=== PATIENT | female | born 1945 | race Caucasian/White ===

== ENCOUNTER 2016-12-10 14:31 | Inpatient (IN) ==
--- OUTSIDE RECORDS SUMMARY | 2016-12-10 14:47 | External Medical Summary | Referral Summary ---
:1945 Author Organization [facility] Address [address] [place] [address] Care Team Providers Name Role Phone Valeria Felipe Primary Care Physician Encounter VC Date(s): 02/28/16 - 02/28/16 [facility] [address] [place] [address] Discharge Disposition: 01-Home or Self Care Attending Physician: Asael Payne MD Admitting Physician: Asael Payne MD Vital Signs Most recent to oldest [Reference Range]: 1 Temperature Oral [35.8-37.3 degC] 36.7 degC (02/28/16 10:49 AM) Temperature Temporal Artery [36.3-37.8 degC] 36.9 degC (02/28/16 1:28 PM) Peripheral Pulse Rate [60-100 bpm] 88 bpm (02/28/16 10:49 AM) Heart Rate Monitored [60-100 bpm] 80 bpm (02/28/16 2:15 PM) Respiratory Rate [14-20 br/min] 18 br/min (02/28/16 2:15 PM) Blood Pressure [90-140/60-90 mmHg] 106/52mmHg (02/28/16 2:15 PM) SpO2 95 % (02/28/16 2:15 PM) Problem List Condition Effective Dates Status Health Status Informant Diabetes(Confirmed) Active patient GERD (gastroesophageal reflux Active patient disease)(Confirmed) Hypertension(Confirmed) Active patient Arthritis(Confirmed) Active patient Allergies, Adverse Reactions, Alerts No Known Allergies Medications Aspirin Low Strength 81 mg, Oral, Daily, 0 Refill(s) Start Date: 02/28/16 Status: OrderedbusPIRone 15 mg oral tablet 15 mg 1 tabs, Oral, BID, 0 Refill(s) Start Date: 02/28/16 Status: OrderedCalcium 600+D See Instructions, Oral, 0 Refill(s) Start Date: 02/28/16 Status: OrderedglyBURIDE 5 mg oral tablet 10 mg 2 tabs, Oral, BID, 0 Refill(s) Start Date: 02/28/16 Status: Orderedlisinopril-hydrochlorothiazide 10 mg-12.5 mg oral tablet 1 tabs, Oral, Daily, 0 Refill(s) Start Date: 02/28/16 Status: OrderedmetFORMIN 500 mg oral tablet, extended release 500 mg 1 tabs, Oral, BID, 0 Refill(s) Start Date: 02/28/16 Status: Orderedomeprazole 20 mg oral delayed release capsule 20 mg 1 caps, Oral, Daily, 0 Refill(s) Start Date: 02/28/16 Status: Orderedoxybutynin 5 mg oral tablet 5 mg 1 tabs, Oral, BID, 0 Refill(s) Start Date: 02/28/16 Status: Orderedsimvastatin 40 mg oral tablet 40 mg 1 tabs, Oral, Bedtime (once a day), 0 Refill(s) Start Date: 02/28/16 Status: Ordered Results Hematology Most recent to oldest [Reference Range]: 1 WBC [4.8-10.8 10*3/uL] 9.6 10*3/uL (02/28/16 11:21 AM) RBC [4.00-5.20] 4.80 (02/28/16 11:21 AM) Hgb [12.0-16.0 gm/dL] 12.0 gm/dL (02/28/16 11:21 AM) Hct [37.0-47.0 %] 38.7 % (02/28/16 11:21 AM) MCV [82.0-99.0 fL] 80.6 fL *LOW* (02/28/16 11:21 AM) MCH [27.0-32.0 pg] 25.0 pg *LOW* (02/28/16 11:21 AM) MCHC [32.0-36.0 gm/dL] 31.0 gm/dL *LOW* (02/28/16 11:21 AM) RDW [11.5-14.5 %] 15.8 % *HI* (02/28/16 11:21 AM) Platelet [150-400 10*3/uL] 246 10*3/uL (02/28/16 11:21 AM) MPV [9.4-12.4 fL] 10.4 fL (02/28/16 11:21 AM) Immature Granulocytes [0.0-1.0 %] 0.5 % (02/28/16 11:21 AM) Neutrophils [51-75 %] 71 % (02/28/16 11:21 AM) Lymphocytes [20-46 %] 21 % (02/28/16 11:21 AM) Monocytes [4-11 %] 6 % (02/28/16 11:21 AM) Eosinophils [0-4 %] 2 % (02/28/16 11:21 AM) Basophils [0-2 %] 0 % (02/28/16 11:21 AM) Neutro Absolute [1.90-7.00 10*3] 6.74 10*3 (02/28/16 11:21 AM) Lymph Absolute [0.80-3.30 10*3] 1.98 10*3 (02/28/16 11:21 AM) [place] Absolute [0.30-1.00 10*3] 0.60 10*3 (02/28/16 11:21 AM) Eos Absolute [0.00-0.50 10*3] 0.16 10*3 (02/28/16 11:21 AM) Baso Absolute [0.00-0.20 10*3] 0.02 10*3 (02/28/16 11:21 AM) Chemistry Most recent to oldest [Reference Range]: 1 Sodium Lvl [136-144 mEq/L] 141 mEq/L (02/28/16 11:21 AM) Potassium Lvl [3.6-5.1 mEq/L] 3.8 mEq/L (02/28/16 11: AM) Chloride [99-109 mEq/L] 102 mEq/L (02/28/16 11:21 AM) CO2 [22-32 mEq/L] 26 mEq/L (02/28/16 11:21 AM) AGAP [3-20] 13 (02/28/16 11:21 AM) BUN [4-20 mg/dL] 18 mg/dL (02/28/16 11:21 AM) Glucose Lvl [70-100 mg/dL] 144 mg/dL *HI* (02/28/16: AM) Creatinine Lvl [0.44-1.03 mg/dL] 0.78 mg/dL (02/28/16:21 AM) eGFR [>60] >601 (02/28/16: AM) Calcium Lvl [8.6-10.0 mg/dL] 9.6 mg/dL (02/28/16 AM) Albumin Lvl [3.5-4.8 gm/dL] 3.9 gm/dL (02/28/16 AM) Total Protein [6.1-7.9 gm/dL] 7.6 gm/dL (02/28/16:21 AM) Globulin [1.9-4.3 gm/dL] 3.7 gm/dL (02/28/16: AM) ALT [14-54 U/L] 17 U/L (02/28/16: AM) AST [15-41 U/L] 19 U/L (02/28/16:21 AM) Alk Phos [26-104 U/L] 40 U/L (02/28/16: AM) Bili Total [0.2-1.2 mg/dL] 0.6 mg/dL2 (02/28/16 11:21 AM) Blood Glucose, Capillary [70-100 mg/dL] 134 mg/dL *HI* (02/28/16 11:23 AM) 1Result Comment: Multiply eGFR results by 1.21 for race.2Result Comment: Naproxen, specifically the metabolite O-desmethylnaproxen, may cause spurious elevation in Total Bilirubin levels. Immunizations Vaccine Date Refusal Reason tetanus-diphth toxoids (Td) adult/adol 07/02/05 Procedures Procedure Date Related Diagnosis Body Site Esophagogastroduodenoscopy Foreign Body Removal1 02/28/16 1auto-populated from documented surgical case Social History Social History Type Response Smoking Status Never smoker Assessment and Plan No data available for this section
--- OUTSIDE RECORDS SUMMARY | 2016-12-10 14:47 | External Medical Summary | Continuity of Care Document ---
:1945 Author Organization [facility] [place] Allergies Active Description Code Type Severity Reaction Onset Reported/ Identified Relationship Clinical to Patient Status Yes No Allergy Drug N/A N/A 11/08/2012 Information Aller Availab gy Medications Problems Date Dx Coded Attending Type Code Diagnosis Diagnosed By 11/08/2012 Jasper Shine Jr, DO Final 250.00 DM2/NOS UNCOMP NSU 11/08/2012 Jasper Shine Jr, DO Final 272.4 HYPERLIPIDEMIA NEC NOS 11/08/2012 Jasper Shine Jr, DO Final 278.00 OBESITY NOS 11/08/2012 Jasper Shine Jr, DO Final 401.9 HYPERTENSION NOS 11/08/2012 Jasper Shine Jr, DO P 787.20 DYSPHAGIA NOS 11/08/2012 Jasper Shine Jr, DO Final 935.1 FB IN ESOPHAGUS 11/08/2012 Jasper Shine Jr, DO External E915 FB ENTERING ORIFICE NEC 11/08/2012 Jasper Shine Jr, DO Final V85.39 BMI 39.0-39.9 ADULT Procedures Code [place] [address] OPERATIVE UPPER GI ENDOSCOPY Jhon Mart DO 11/08/2012 Results Encounters ACCT No. Visit Discharge Status Pt. Type Provider Facility Loc./Unit Complaint Date/Time [id number] 11/08/2012 11/08/2012 DIS Outpatient Rl [facility] 12:21:00 21:15:00 Jasper LEA [facility]
--- NOTE | 2016-12-10 17:13 | Consult Note ---
<Fanny Blackwood V - Last Filed: 12/10/16 17:10> Consult Information - Data of Consult Patient: new to practice Consult date: 12/10/16 Requesting Physician: Maynor Harp MD - Consult Narrative Reason for consult: Medical management of hypertension, diabetes History of present illness: Patient is a pleasant 71-year-old female with a long-standing history of lumbar stenosis, lumbar radiculopathy and lumbar spondylolisthesis thigh cyst. She underwent an L3-L5 posterior lumbar fusion under the care of Dr. Servin on Sunday12/06/16 at [facility]. She has tolerated this procedure well and was accepted to the inpatient rehabilitation continue to at [facility] for ongoing recovery, therapy and strengthening. She is seen today for initial medical consultation. She reports feeling quite fatigued and having a moderate amount of discomfort from her transfer via car this afternoon. She states that once lying down. She is more comfortable. Requesting pain medication at time of examination. Any other symptoms or concerns including chest pain, shortness of breath or GI concerns. Her posterior lumbar incision obtains a dressing that is dry and intact without evidence of erythema or drainage. [facility] Patient Stated Medical History Hypertension Hyperlipidemia Asthma Diabetes Mellitus Type 2 Constipation Urinary Incontinence Osteoarthritis Surgical History: Tonsillectomy. Appendectomy. Cholecystectomy. Hysterectomy Family History: Family history positive for heart disease, hypertension, asthma, arthritis - Social History Smoking status: Never smoker Substance use type: does not use Alcohol intake frequency: does not drink Housing: house Household members: spouse Current residence: Apartment/Private Home Review of Systems All systems: reviewed and no additional remarkable complaints except as stated - Constitutional Constitutional: Present: fatigue - Musculoskeletal Musculoskeletal: Present: as per HPI, back pain (lumbar back pain- post-op) Medications Home Medications Medication Instructions Recorded Confirmed Type Aspirin *EC* [Ecotrin] 1 tab PO DAILY 12/10/16 12/10/16 History Buspirone [Buspar] 15 mg PO BID 12/10/16 12/10/16 History Cyclobenzaprine [Flexeril] 5 mg PO TID PRN 12/10/16 12/10/16 History Docusate Sodium [Colace] 1 cap PO BID 12/10/16 12/10/16 History GlyBURIDE [Micronase] 10 mg PO BID 12/10/16 12/10/16 History Lisinopril/Hctz 10.5 [Prinzide 1 tab PO DAILY 12/10/16 12/10/16 History 1012.5] Metformin [Glucophage] 500 mg PO BIDWM 12/10/16 12/10/16 History Omeprazole [Prilosec] 1 cap PO ACB 12/10/16 12/10/16 History Oxybutynin Ir [Ditropan] 5 mg PO BID 12/10/16 12/10/16 History Oxycodone/APAP 10/325 [Percocet 1 tab PO Q4H PRN 12/10/16 12/10/16 History 10/325] Simvastatin [Zocor] 20 mg PO DAILY 12/10/16 12/10/16 History Allergies Allergy/AdvReac Type Severity Reaction Status Date / Time No Known Allergies Allergy Verified 12/10/16 16:45 Exam Vital Signs: Temperature 98.1 F 12/10/16 14:31 Pulse Rate 108 H 12/10/16 14:31 Respiratory Rate 18 12/10/16 14:31 Blood Pressure 106/57 12/10/16 14:31 Pulse Oximetry 93 12/10/16 14:31 Oxygen Delivery Method Room Air Height: 1.83 m Weight: 106.4 kg Body Mass Index: 31.8 - Constitutional Present: no acute distress, well nourished, well developed - Routine HEENT Exam Head: Present: normocephalic, atraumatic Eye: Present: EOMI ENT: Present: mucous membranes moist, dentition normal - Routine Neck Exam Present: supple, full ROM - Routine Respiratory Exam Present: CTA bilaterally. Absent: wheezes - Routine Cardiovascular Exam Present: RRR, S1, S2. Absent: murmur - Routine Abdominal Exam Present: soft, normoactive bowel sounds, non distended. Absent: tenderness - Routine Extremities Exam Present: no edema, full ROM, normal capillary refill - Routine Back/Spine/Pelvis Exam Back/Spine: Present: paraspinal tenderness (lumbar spine) Back image: 1 - Lumbar spine incision, dressing dry and intact without erythema or drainage - Routine Skin Exam Present: intact, dry, warm - Routine Neurological Exam Present: alert, oriented X3, CN II-XII intact - Routine Psychiatric Exam Present: normal affect, normal thought process Assessment and Plan DVT Prophylaxis: Lovenox Resuscitation Status: Full Code Assessment and Plan: Status post lumbar fusion with postop pain Hypertension Diabetes Hyperlipidemia Osteoarthritis Plan Appreciate medical consultation by the hospitalist services. All rehabilitation and pain control management as per Dr. Harp. Consults to PT and OT for further evaluation of postoperative strengthening and function Will monitor Accu-Cheks routinely and continue on metformin 500 milligrams twice a day and glyburide. Monitor blood pressure and continue on home regimen of Prinzidie Continue with Colace twice a day, will add MiraLAX for more aggressive bowel motivation Lovenox subcutaneous daily for DVT prophylaxis Will check CBC and BMP tomorrow morning to follow. Postoperative blood counts, renal function and electrolytes Appreciate medical consultation for existing comorbidities. The hospitalist services will plan to follow patient during her stay in the rehabilitation unit Hospital Course Summary Disclaimer: The visit summary below is not to be considered part of the above Progress Note. Hospital Course: 12/10/16 17:18 Plan Appreciate medical consultation by the hospitalist services. All rehabilitation and pain control management as per Dr. Harp. Consults to PT and OT for further evaluation of postoperative strengthening and function Will monitor Accu-Cheks routinely and continue on metformin 500 milligrams twice a day and glyburide. Monitor blood pressure and continue on home regimen of Prinzidie Continue with Colace twice a day, will add MiraLAX for more aggressive bowel motivation Lovenox subcutaneous daily for DVT prophylaxis Will check CBC and BMP tomorrow morning to follow. Postoperative blood counts, renal function and electrolytes Appreciate medical consultation for existing comorbidities. The hospitalist services will plan to follow patient during her stay in the rehabilitation unit Sepsis Assessment - Evaluation Sepsis screening result: No Definite Risk <Dunia Wayne - Last Filed: 12/10/16 22:20> Consult Information - Data of Consult Requesting Physician: Maynor Harp MD [facility] Patient Stated Medical History Hypertension Yes Other Cardiology Yes: hyperlipidemia Asthma Yes Diabetes Mellitus Type 2 Yes Constipation Yes Hx Incontinence No Other Yes: tonsillectomy, arthritis Exam Vital Signs: Temperature 98.2 F 12/10/16 19:39 Pulse Rate 103 H 12/10/16 19:39 Respiratory Rate 16 12/10/16 19:39 Blood Pressure 129/65 12/10/16 19:39 Pulse Oximetry 93 12/10/16 19:39 Oxygen Delivery Method Room Air Height: 1.83 m Weight: 106.4 kg Assessment and Plan Assessment and Plan: I was not able to see the patient today due to the lateness in the evening. I did review H and P and orders. I will stop/hold on ASA and lovenox at this time and we can discuss with Neurosurgery when these can be restarted. - Hospital Course Summary Disclaimer: The visit summary below is not to be considered part of the above Progress Note.
[2016-12-10] MEDS: OXYCODONE PO PRN ×2 (17:41→21:36)
[2016-12-10] MEDS: APAP PO PRN ×2 (17:41→21:36)
[2016-12-10] MEDS: METFORMIN 500 MG TABLET PO SCH (17:54)
[2016-12-10] MEDS: POLYETHYL GLYCOL 3350 17gm PACKET PO SCH (17:55)
[2016-12-10] MEDS ORDERED: GLYBURIDE 5 MG TABLET PO SCH (21:00)
[2016-12-10] MEDS: OXYBUTYNIN IR 5 MG TABLET PO SCH (21:12)
[2016-12-10] MEDS: BUSPIRONE 15 MG TABLET PO SCH (21:12)
[2016-12-10] MEDS: DOCUSATE SODIUM 100 MG CAPSULE PO SCH (21:12)
[2016-12-11] MEDS: OMEPRAZOLE 20 MG CAPSULE PO SCH ×2 (04:21→08:59)
[2016-12-11] MEDS: APAP PO PRN ×4 (06:06→20:38)
[2016-12-11] MEDS: OXYCODONE PO PRN ×4 (06:06→20:38)
[2016-12-11] MEDS ORDERED: GLYBURIDE 5 MG TABLET PO SCH (08:00)
[2016-12-11] MEDS ORDERED: SIMVASTATIN 20 MG TABLET PO SCH (09:00)
[2016-12-11] MEDS ORDERED: ENOXAPARIN 40 MG/0.4 ML INJECTION SQ SCH (09:00)
[2016-12-11] MEDS ORDERED: ASPIRIN *EC* 81 MG TABLET PO SCH (09:00)
[2016-12-11] MEDS: OXYBUTYNIN IR 5 MG TABLET PO SCH ×2 (09:12→20:57)
[2016-12-11] MEDS: CYCLOBENZAPRINE 5 MG TABLET PO PRN ×2 (09:12→17:52)
[2016-12-11] MEDS: LISINOPRIL/HCTZ 10/12.5 MG TABLET PO SCH (09:12)
[2016-12-11] MEDS: LIDOCAINE 5% PATCH TOP SCH (09:13)
[2016-12-11] MEDS: BUSPIRONE 15 MG TABLET PO SCH ×2 (09:13→20:57)
[2016-12-11] MEDS: METFORMIN 500 MG TABLET PO SCH ×2 (09:13→17:52)
[2016-12-11] MEDS: POLYETHYL GLYCOL 3350 17gm PACKET PO SCH (09:13)
[2016-12-11] MEDS: DOCUSATE SODIUM 100 MG CAPSULE PO SCH ×2 (09:13→20:57)
--- NOTE | 2016-12-11 09:55 | IRU History & Physical Report ---
[facility] Date: 949 Chief complaint: My back hurts HPI: Ms. Arellano is a very pleasant 72-year-old white female who underwent L3-L5 interbody fusion in [place] at [facility] by Dr. Fernie Servin on . She has had significant pain and debility. Prior to her surgery she was unable to stand for more than 5 minutes. She reported lower extremity weakness and severe low back pain. She had obtained a scooter and was using that around the house. She and her live with their son who has chronic kidney disease at [place]. She is unable to return home at this time due to severe debility with muscle weakness and low back pain following the surgery. She has a history of multiple medical problems including hypertension and diabetes mellitus. She is on oral agents only. She states that she does check her blood sugars at home periodically but not on a regular basis. I asked her what her average fasting blood sugar was and she does not recall this. It is not clear what her A1c has been. She also has a history of hypertension. It is not clear if she has been able to keep this under control or not. There is a report of some redness in the presacral area. There is no open ulcer in this area and it is blanchable. The patient requires intensive individualized rehabilitation on the acute rehabilitation unit. She will require occupational therapy and physical therapy and is able to tolerate 3 hours daily. She clearly is unable to return home at the present time and seems to be an excellent candidate for acute rehabilitation. She tells me that she is very motivated to get back home. Barriers to progress will include pain and muscle weakness as well as her obesity. Review of Systems - Constitutional Constitutional: Present: fatigue, weakness - Cardiovascular Cardiovascular: Absent: chest pain, palpitations, dyspnea on exertion Rhythm: Present: regular rhythm Vascular: Absent: intermittent claudication - Respiratory Respiratory: Absent: cough, dyspnea - Gastrointestinal Gastrointestinal: Present: constipation. Absent: abdominal pain - Genitourinary Genitourinary: Absent: dysuria, flank pain - Musculoskeletal Musculoskeletal: Present: as per HPI, back pain (lumbar back pain- post-op) - Integumentary/Breasts Integumentary: Present: other Integumentary Comments: There is a blanchable area of redness in the presacral area without open ulceration. - Neurological Neurological: Present: headache(s) Neurological Comments: Reports headaches when the allergy season his bed. - Psychiatric Psychiatric: Present: depression Psychiatric Comments: She volunteered that she feels depressed and is discouraged at the present time due to her pain and weakness. [facility] Patient Stated Medical History Hypertension Yes Other Cardiology Yes: hyperlipidemia Asthma Yes Diabetes Mellitus Type 2 Yes Constipation Yes Hx Incontinence No Other Yes: tonsillectomy, arthritis DJD lumbar spine with spinal stenosis Surgical History: Tonsillectomy. Appendectomy. Cholecystectomy. Hysterectomy. Prior tubal ligation. Possible BSO. 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) Alcohol intake: never Current residence: Apartment/Private Home Medications Home Medications Medication Instructions Recorded Confirmed Type Aspirin *EC* [Ecotrin] 1 tab PO DAILY 12/10/16 12/10/16 History Buspirone [Buspar] 15 mg PO BID 12/10/16 12/10/16 History Cyclobenzaprine [Flexeril] 5 mg PO TID PRN 12/10/16 12/10/16 History Docusate Sodium [Colace] 1 cap PO BID 12/10/16 12/10/16 History GlyBURIDE [Micronase] 10 mg PO BID 12/10/16 12/10/16 History Lisinopril/Hctz 10/12.5 [Prinzide 1 tab PO DAILY 12/10/16 12/10/16 History 10/12.5] Metformin [Glucophage] 500 mg PO BIDWM 12/10/16 12/10/16 History Omeprazole [Prilosec] 1 cap PO ACB 12/10/16 12/10/16 History Oxybutynin Ir [Ditropan] 5 mg PO BID 12/10/16 12/10/16 History Oxycodone/APAP 10/325 [Percocet 1 tab PO Q4H PRN 12/10/16 12/10/16 History 10/325] Simvastatin [Zocor] 20 mg PO DAILY 12/10/16 12/10/16 History Allergies Allergy/AdvReac Type Severity Reaction Status Date / Time No Known Allergies Allergy Verified 12/10/16 16:45 Exam Vital Signs: Temperature 98.2 F 12/10/16 19:39 Pulse Rate 103 H 12/10/16 19:39 Respiratory Rate 16 12/10/16 19:39 Blood Pressure 129/65 12/10/16 19:39 Pulse Oximetry 93 12/10/16 19:39 Oxygen Delivery Method Room Air Height: 1.83 m Weight: 106.4 kg Body Mass Index: 31.8 - Constitutional Present: moderate distress (Pain in back with movement) - Routine HEENT Exam Head: Present: normocephalic Eye: Present: EOMI, PERRL ENT: Present: mucous membranes moist - Routine Neck Exam Present: supple, full ROM - Routine Respiratory Exam Present: CTA bilaterally. Absent: accessory muscle use, dyspnea, decreased breath sounds - Routine Cardiovascular Exam Present: RRR, S1, S2, no murmur - Routine Abdominal Exam Present: soft, normoactive bowel sounds, non distended (Obese abdomen). Absent : tenderness - Routine Extremities Exam Present: no edema (Inspected wound: clean, dry, non-inflamed) - Routine Skin Exam Present: intact - Routine Neurological Exam Present: alert, oriented X3 - Routine Psychiatric Exam Present: cooperative, depressed, anxious (Pain and debility noted and this affects her attitude) Sepsis Assessment - Evaluation Sepsis screening result: No Definite Risk IRU A/P (1) Back pain at L4-L5 level Current visit: Yes Status: Acute Continued mobilization and intensive focused physical therapy will be undertaken along with provision of pain medications. (2) Diabetes mellitus Qualifiers: Diabetes mellitus type: type 2 Diabetes mellitus complication status: without complication Diabetes mellitus exterminator helper termite insulin use: without custodial use Qualified Code(s): E11.9 - Type 2 diabetes mellitus without complications Current visit: Yes Status: Acute Patient will continue the oral medications although we will reduce glyburide to once every morning instead of twice a day. Continue monitoring blood sugars. Otherwise per medical team. (3) Benign essential hypertension Current visit: Yes Status: Acute Per medical team. Monitor BP. (4) Obesity (BMI 30.0-34.9) Current visit: Yes Status: Acute Education and food choices. She is currently anorectic likely due to her pain and medications. (5) Debility Current visit: Yes Status: Acute Her debility is due to long-term pain with standing and difficulty ambulation prior to the surgery. She has disuse myopathy and will require intensive physical therapy and occupational therapy for improvement. DVT Prophylaxis: Lovenox Resuscitation Status: Full Code - Course Hospital Course: Maynor Harp MD:
--- NOTE | 2016-12-11 10:13 | IRU 24Hr Post Admit Eval ---
24 Hr Post Admission Physical - Relevant Changes Relevant Changes: No Reviewed: I have reviewed the patient's information and concur with the finding and results of the pre-admission screen. Certification: I certify the patient for rehabilitation. - Patient Condition (1) Back pain at L4-L5 level Status: Acute Code(s): M54.5 - Low back pain (2) Diabetes mellitus Status: Acute Qualifiers: Diabetes mellitus type: type 2 Diabetes mellitus complication status: without complication Diabetes mellitus supervisor intermediates insulin use: without [facility] use Qualified Code(s): E11.9 - Type 2 diabetes mellitus without complications Code(s): E11.9 - Type 2 diabetes mellitus without complications Additional Information: Blood sugar was a bit low this morning at around 71. We will hold the evening glyburide. (3) Benign essential hypertension Status: Acute Code(s): I10 - Essential (primary) hypertension (4) Obesity (BMI 30.0-34.9) Status: Acute Code(s): E66.9 - Obesity, unspecified (5) Debility Status: Acute Code(s): R53.81 - Other malaise - Prior Functional Status Lives With: Spouse, With Family Residence Type: Apartment/Private Home Assitive Devices: Scooter Prior Functional Status: Used assistive device - Current Functional Status Failed Alternative Therapy: Arrived from Acute Care Patient Requirements: The patient requires oversight by rehabilitation physician to manage their rehabilitation treatment plan and multidisciplinary approach to care that can only be provided in an IRF and requires a multidisciplinary approach to care, provided by professional PTs, OTs, STs, dieticians, RTs, rehabilitation nurses and is not available in lesser levels of care. Limitiations Req: Mobility Impairment, ADL Impairment, Limited Mobility, Desire/ Ability to Partici Therapy: The patient is to receive therapy at least 5 days a week. - Complications/Comorbidities Barriers to Discharge: Weakness, Endurance, Pain Control - Plan to Avoid Complications Plan to Avoid Complications: The patient cannot receive this care in a lesser intensive setting such as Usp or Outpatient Therapy due to the patient requiring the following .
[2016-12-11] MEDS: ASPIRIN *EC* 81 MG TABLET PO SCH (11:00)
[2016-12-11] MEDS: ENOXAPARIN 40 MG/0.4 ML INJECTION SQ SCH (11:00)
[2016-12-11] MEDS ORDERED: DEXTROSE 50% SYRINGE 50ml (1 AMP) IVP PRN (18:22)
[2016-12-11] MEDS ORDERED: GLUCOSE ORAL GEL 40% 37.5gm PO PRN (18:22)
--- NOTE | 2016-12-11 18:22 | Progress Note ---
Subjective: The patient was seen in her room this evening after supper accompanied by her and son. Postoperatively she had encephalopathy and poor appetite. Her encephalopathy is completely resolved. Her appetite is still somewhat poor but improving. She is not had a bowel movement since surgery. She has mild nausea but states it's not bad enough to want any medication. She denies any chest pain or shortness of breath. She denies any lightheadedness. She denies any abdominal pain. She states that overall she is feeling much better today. Objective Vital signs: Temperature 97.0 F 12/11/16 16:00 Pulse Rate 103 H 12/11/16 16:00 Respiratory Rate 16 12/11/16 16:00 Blood Pressure 105/59 12/11/16 16:00 Pulse Oximetry 90 12/11/16 16:00 Oxygen Delivery Method Room Air Body Mass Index: 31.8 Comments: GEN-alert, oriented, no acute distress NECK-supple CV-regular rate and rhythm CHEST-clear to auscultation bilaterally ABD-soft, nontender, nondistended with positive bowel sounds. Patient does have a back brace on which limits examination of the stomach. -no Feldman EXT-no edema NEURO-no focal deficits SKIN-warm and dry and without rashes Results - Labs CBC & Chem 7: 12/11/16 04:07 12/11/16 04:07 Labs: Hemoglobin on the at the [facility] was 10.6. Assessment and Plan Assessment and Plan: 12/11/2016-Dr. Wayne Impression Status post lumbar fusion on 12/06/2016-pain control is improved today Hypertension-fair control on lisinopril with hydrochlorothiazide Diabetes-hypoglycemia this morning Hyperlipidemia Osteoarthritis Constipation Jfzuuazv-[id number]-bpzzotcup Anemia I did call and speak with Dr. Fernie Servin and he stated it would be okay to restart aspirin 81 mg daily and she can take Lovenox 40 mg subcutaneous daily for DVT prophylaxis. I will restart those in the morning. Regarding hypoglycemia, the patient's glyburide was decreased from twice daily down to once daily. Metformin was continued We'll need continue to monitor for hypoglycemia and may need to adjust medications tomorrow. We'll add when necessary medicines for hypoglycemia Continue MiraLAX and Dr. gomez for constipation Sepsis Assessment - Evaluation Sepsis screening result: No Definite Risk Hospital Course Summary Disclaimer: The visit summary below is not to be considered part of the above Progress Note. Hospital Course: 12/10/16 17:18 Plan Appreciate medical consultation by the hospitalist services. All rehabilitation and pain control management as per Dr. Harp. Consults to PT and OT for further evaluation of postoperative strengthening and function Will monitor Accu-Cheks routinely and continue on metformin 500 milligrams twice a day and glyburide. Monitor blood pressure and continue on home regimen of Prinzidie Continue with Colace twice a day, will add MiraLAX for more aggressive bowel motivation Lovenox subcutaneous daily for DVT prophylaxis Will check CBC and BMP tomorrow morning to follow. Postoperative blood counts, renal function and electrolytes Appreciate medical consultation for existing comorbidities. The hospitalist services will plan to follow patient during her stay in the rehabilitation unit
[2016-12-11] MEDS ORDERED: PNEUMOCOCCAL 13 VACCINE 0.5ml INJECTION IM ONE (18:37)
[2016-12-11] MEDS: LIDOCAINE PATCH REMOVAL TOP SCH (20:44)
[2016-12-11] MEDS ORDERED: PNEUMOCOCCAL VAC ADMIN CHARGE INJ ONE (20:53)
[2016-12-11] MEDS: SIMVASTATIN 20 MG TABLET PO SCH (20:57)
[2016-12-12] MEDS: CYCLOBENZAPRINE 5 MG TABLET PO PRN ×2 (00:07→09:01)
[2016-12-12] MEDS: SIMVASTATIN 20 MG TABLET PO SCH ×3 (02:16→21:16)
[2016-12-12] MEDS: APAP PO PRN ×4 (03:03→19:33)
[2016-12-12] MEDS: OXYCODONE PO PRN ×4 (03:03→19:33)
[2016-12-12] MEDS: OMEPRAZOLE 20 MG CAPSULE PO SCH (06:11)
[2016-12-12] MEDS ORDERED: GLYBURIDE 5 MG TABLET PO SCH (08:00)
[2016-12-12] MEDS: LISINOPRIL/HCTZ 10/12.5 MG TABLET PO SCH (08:48)
[2016-12-12] MEDS: DOCUSATE SODIUM 100 MG CAPSULE PO SCH ×2 (08:48→21:16)
[2016-12-12] MEDS: BUSPIRONE 15 MG TABLET PO SCH ×2 (08:51→21:16)
[2016-12-12] MEDS: OXYBUTYNIN IR 5 MG TABLET PO SCH ×2 (08:52→21:16)
[2016-12-12] MEDS: METFORMIN 500 MG TABLET PO SCH ×2 (08:52→17:44)
[2016-12-12] MEDS: POLYETHYL GLYCOL 3350 17gm PACKET PO SCH (08:54)
[2016-12-12] MEDS: LIDOCAINE 5% PATCH TOP SCH (09:28)
--- NOTE | 2016-12-12 10:26 | IRU Plan of Care ---
[facility] Overall Plan of Care - Date Date: 12/12/16 - Patient Impairments (1) Back pain at L4-L5 level Code(s): M54.5 - Low back pain Status: Acute Classification: Present on IRF Admission (2) Diabetes mellitus Qualifiers: Diabetes mellitus type: type 2 Diabetes mellitus complication status: without complication Diabetes mellitus longterm insulin use: without longterm use Qualified Code(s): E11.9 - Type 2 diabetes mellitus without complications Code(s): E11.9 - Type 2 diabetes mellitus without complications Status: Chronic Classification: Present on IRF Admission, Diagnosis Requiring Medical Follow Up (3) Benign essential hypertension Code(s): I10 - Essential (primary) hypertension Status: Chronic Classification: Present on IRF Admission, Diagnosis Requiring Medical Follow Up (4) Obesity (BMI 30.0-34.9) Code(s): E66.9 - Obesity, unspecified Status: Chronic Classification: Present on IRF Admission, Diagnosis Requiring Medical Follow Up (5) Debility Code(s): R53.81 - Other malaise Status: Acute Classification: Present on IRF Admission - Relevant Changes Relevant Changes: No Reviewed: I have reviewed the patient's information and concur with the finding and results of the pre-admission screen. Certification: I certify the patient for rehabilitation. - Medical Prognosis Medical Prognosis: Good Vital Signs: Last Vital Signs Temp 98.1 F 12/11/16 20:17 Pulse 103 H 12/12/16 08:00 Resp 20 12/12/16 08:00 BP 115/65 12/12/16 08:00 Pulse Ox 96 12/12/16 08:00 - Anticipated Interventions Anticipated Interventions: The patient requires inpatient IRF care for PT, OT, and/or ST for residuals remaining from [lumbar spine fusion surgery] resulting in muscular weakness and strength deficits. Strength Deficits: Right Lower Extremity, Left Lower Extremity - FIM Ambulation Distance: 36 Wheelchair Propulsion Distance: 246 Walk: 3 Moderate Assistance Staff Assist to Walk: 1 Person Stairs: 0 Activity Does Not Occur Wheelchair: 3 Moderate Assistance Staff Assist to Propel W/C: 1 Person Eatin+ Complete [place] Groomin Minimal Assistance Bathing Ability: 2 Maximum Assistance Dressing-Upper: 3 Moderate Assistance Dressing Lower: 3 Moderate Assistance Staff Assistance Lower Body Dressin Person Bed Transfers: 3 Moderate Assistance Staff Assistance for Bed Transfers: 1 Person Chair Transfers: 3 Moderate Assistance Staff Assistance for Chair Transfer: 1 Person Wheelchair Transfer: 3 Moderate Assistance Staff Assist Wheelchair Transfer: 1 Person Toilet/Commode Transfer Assistance: 2 Maximum Assistance Staff Assist Toilet/Commode Transfer: 1 Person Tub/Shower Transfer: 2 Maximum Assistance Staff Assist Tub/Shower Transfer: 1 Person Comprehension: 6 Modified [place] Social Interaction: 5 Supervision/Setup Toileting Adaptive Equipment: Commode Toileting Assistance: 2 Maximum Assistance Urinary Catheter Present: No - Current Functional Status Failed Alternative Therapy: Arrived from Acute Care Patient Requires: The patient requires oversight by rehabilitation physician to manage their rehabilitation treatment plan and multidisciplinary approach to care that can only be provided in an IRF and requires a multidisciplinary approach to care, provided by professional PTs, OTs, STs, dieticians, RTs, rehabilitation nurses and is not available in lesser levels of care. Physical Therapy Minutes: 90 Occupational Therapy Minutes: 90 Therapy: The patient is to receive therapy at least 5 days a week. - Anticipated LOS/Outcomes Anticipated Functional Outcome: We anticipate patient returning to her home with mod indep functioning for ambulation and dressing/ADL's Anticipated Length of Stay: 1 Anticipated DC Destination: Home Health Service Home Safety Plan: The patient will be provided with the development of a Home Safety Plan for return to a home or home-like environment and and to ensure safety post discharge. - Plan to Avoid Complications Barriers to Attaining Goals: Weakness, Endurance, Comprehension, Pain Control Plan to Avoid Complications: The patient cannot receive this care in a lesser intensive setting such as Retirement or Outpatient Therapy due to the patient requiring the following : Due to variable intake (secondary to pain and debility), her diabetes will be impacted. Secondly her blood pressure will be impacted due to the pain she is experiencing. She will require intensive education and encouragement to learn how to move and transfer in an efficient and safe manner. She has severe pain in the lumbar spine and requires intensive individualized PT, OT, nursing and medical supervision in order to prevent a readmission and to allow her to return to her home safely.
--- NOTE | 2016-12-12 10:34 | IRU Progress Note ---
- Subjective/Serverity of Illness Mrs. Arellano was evaluated today. She continues to complain of severe pain in the back. She states that there is pain with sitting or standing and standing does not necessarily make it worse. However, it is noted that when she is distracted she is able to ambulate with standby assistance of 1 person and with a walker. However she has decreased endurance secondary to the pain. She denies any actual shortness of breath. She continues to be discouraged about her pain situation. However reminded her that we are only 6 days out of surgery at the present time and medically speaking I think that this amount of pain is probably not unusual for this extensive surgery. She continues to have weakness in her legs which she had prior to surgery. She denies any chest pain. Her appetite is reduced but she is eating. She is cooperative with therapy. Exam Vital Signs: Temperature 98.1 F 12/11/16 20:17 Pulse Rate 103 H 12/12/16 08:00 Respiratory Rate 20 12/12/16 08:00 Blood Pressure 115/65 12/12/16 08:00 Pulse Oximetry 96 12/12/16 08:00 Oxygen Delivery Method Room Air Height: 1.83 m Weight: 106.4 kg Body Mass Index: 31.8 - Constitutional Present: moderate distress Comments: Ongoing pain continues to be expressed by the patient. Wound was not red nor inflamed. - Routine HEENT Exam Head: Present: normocephalic Eye: Present: EOMI ENT: Present: mucous membranes moist - Routine Neck Exam Present: supple, full ROM - Routine Respiratory Exam Present: CTA bilaterally - Routine Cardiovascular Exam Present: RRR, no murmur - Routine Abdominal Exam Present: normoactive bowel sounds, non distended, non tender - Routine Skin Exam Present: intact. Absent: erythema - Routine Neurological Exam Present: alert, oriented X3 - Routine Psychiatric Exam Present: depressed, anxious Sepsis Assessment - Evaluation Sepsis screening result: No Definite Risk IRU A/P (1) Back pain at L4-L5 level Current visit: Yes Status: Acute Continued pain noted. Wear only 6 days out of surgery side think that the amount of pain she is experiencing is not out of the normal realm. She is cooperating with therapy and improving. (2) Diabetes mellitus Qualifiers: Diabetes mellitus type: type 2 Diabetes mellitus complication status: without complication Diabetes mellitus termite control service representative insulin use: without skilled nursing use Qualified Code(s): E11.9 - Type 2 diabetes mellitus without complications Current visit: Yes Status: Acute Per medical team (3) Benign essential hypertension Current visit: Yes Status: Acute Per medical team (4) Obesity (BMI 30.0-34.9) Current visit: Yes Status: Acute (5) Debility Current visit: Yes Status: Acute Continues to have significant muscle weakness. Improving and working with therapy. DVT Prophylaxis: Lovenox Resuscitation Status: Full Code - Course Hospital Course: Maynor Harp MD: - Interventions to Obtain Goals PT Treatment Plan: Functional Activities, Gait Training, Therapeutic Exercise OT Treatment Plan: ADL (Basic Care), Balance Training, IADL, Pt./Family Education, UE Functional Training
[2016-12-12] MEDS: ONDANSETRON ODT 4 MG TABLET PO PRN (12:37)
[2016-12-12] MEDS: BISACODYL 10 MG SUPPOSITORY RECTALLY PRN (16:09)
[2016-12-12] MEDS ORDERED: MAGNESIUM CITRATE 296ml PO ONE (17:32)
--- NOTE | 2016-12-12 17:45 | Progress Note ---
<Connie Zeng - Last Filed: 12/12/16 17:38> Subjective: Camryn is seen today in follow up for her recent back surgery. She complains of bilateral hip and back pain which she consistently rate 8/10 at rest. She also complains of worsening nausea today for which she took Zofran for the first time. She reports that the zofran helped some. She denies any chest pain , shortness of breath, vomiting, diarrhea or dysuria. She reports that she has not had a BM since before her surgery on 12/06/16 , 6 days ago, despite aggressive bowel motivation since admission including suppositories, milk of magnesia, colace and miralax. She states she still does not have much of an appetite and believes it is due to her pain and nausea. On exam, she is resting in bed, preparing to eat her sandwich for dinner. She is alert and orientated x 3 and her is at the bedside. She is breathing easily on room air and lungs are clear to auscultation bilaterally. Cardiac exam reveals irregular rhythm with tachycardia. Review of nursing notes persistent tachycardia since admission between 94-112. She denies any palpitation, heart racing or irregular heat beat. She denies any known history of irregular heart rhythm or a-fib. Abdomen is distended with active bowel sounds. 2+ pedal pulses bilaterally. Labs today revealed sodium of 141, corrected hypokalemia with potassium of 3.7, BUn 15, SCr 0.7 and glucose 62. She continues to have episodes of hypoglycemia with current reading of 46 on exam. Recent vital signs reviewed and reveals afebrile at 98.3, borderline hypotension at 99/53 and pulse ox at 92% on room air. Objective Vital signs: Temperature 98.3 F 12/12/16 16:00 Pulse Rate 102 H 12/12/16 17:11 Respiratory Rate 18 12/12/16 16:00 Blood Pressure 99/53 12/12/16 17:11 Pulse Oximetry 92 12/12/16 16:00 Oxygen Delivery Method Room Air Body Mass Index: 31.8 - Constitutional Present: no acute distress, obese, cooperative Comments: appears uncomfortable with movement - Routine HEENT Exam Head: Present: normocephalic, atraumatic Eye: Present: PERRL. Absent: conjunctival icterus ENT: Present: mucous membranes moist - Routine Respiratory Exam Present: CTA bilaterally. Absent: accessory muscle use, rhonchi, stridor, wheezes - Routine Cardiovascular Exam Present: S1, S2, tachycardia, irregular rhythm - Routine Abdominal Exam Present: normoactive bowel sounds, distended. Absent: rebound, guarding - Routine Extremities Exam Present: no edema, pulses intact. Absent: calf tenderness - Routine Back/Spine/Pelvis Exam Back/Spine: Present: pain with rotation. Absent: erythema, warmth - Routine Musculoskeletal Exam Musculoskeletal: Present: no clubbing or cyanosis, normal strength, no erythema - Routine Skin Exam Present: intact, dry, warm. Absent: jaundice - Routine Neurological Exam Present: alert, oriented X3, moving all extremities, normal speech - Routine Psychiatric Exam Present: normal affect, cooperative Results - Labs CBC & Chem 7: 12/11/16 04:07 12/12/16 04:01 Assessment and Plan (1) Debility Current visit: Yes Status: Acute (2) S/P lumbar spinal fusion Current visit: Yes Status: Acute (3) Constipation Current visit: Yes Status: Acute (4) Hyperlipidemia Current visit: Yes Status: Chronic (5) Diabetes mellitus Current visit: Yes Status: Chronic (6) Benign essential hypertension Current visit: Yes Status: Chronic (7) Obesity (BMI 30.0-34.9) Current visit: Yes Status: Chronic (8) Osteoarthritis Current visit: Yes Status: Chronic (9) Anemia Current visit: Yes Status: Acute DVT Prophylaxis: SCD's Resuscitation Status: Full Code Assessment and Plan: Antonio continues to complain of bilateral hip and back pain. She also continues to have difficulty with constipation and worsening nausea. On exam she is alert and orientated and currently rates her pain at 8/10 at rest. Cardiac exam reveals irregular rhythm with tachycardia. Lungs are clear to auscultation though she appears to breath shallow at rest. Abdomen is distended with active bowel sounds. 2+ pedal pulses bilaterally without edema or calf pain. Repeat BMP today showed resolved hypokalemia with potassium at 3.7. Blood sugars continue to be variable with episodes of hypoglycemia. -Debility and back Pain, status post lumbar fusion on 12/06/[address] Delatorre. .Currently pain is 8/10 at rest in back and bilateral hips, worse with movement. .Continue to encourage therapies and pain control per Dr. Harp. -Constipation .Patient reports she has not had a BM since prior to her surgery on 12/06 despite aggresive bowel motivation. .Continue with suppositories, miralax, colace, mom and will add mag citrate x 1 dose now. .If no results tonight, consider imaging in AM -Anemia, most likely secondary to post op. .Present on admission. Hemoglobin 9.3. Monitor periodically throughout admission. -Hypertension. .Blood pressure on exam borderline hypotensive at 99/53. Continue to monitor blood pressure closely. Hold daily blood pressure medications if blood pressure less than 140/90. -Diabetes. .Current medications include glyburide and metformin. Patient continues to have episodes of hypoglycemia. Will hold glyburide and continue to monitor blood sugars closely. Hypoglycemia medications available if needed. .Will obtain A1c in AM. -Hyperlipidemia. .Continue home medications and follow as an outpatient. -Tachycardia. .Present on admission. .On exam, heart rate noted to be tachycardic and irregular. Obtain EKG now for further evaluation. Patient denies history of cardiac disorder or arrhythmia. Will obtain TSH for further evaluation as well as bladder scan. .Continue to monitor closely. .Dr. Wayne spoke with Dr. Fernie Servin on 12/11 regarding continuation of ASA and Lovenox. He stated it would be okay to restart aspirin 81 mg daily and she can take Lovenox 40 mg subcutaneous daily for DVT prophylaxis. Nursing was reportedly contacted by Dr. Servin's office today stating that the patient did not need to take ASA or lovenox. Multiple attempts to reach Dr. Servin were made to clarify the orders. Currently Lovenox and ASA remain on hold. Discussed with Dr. Wayne. Encourage SCDs for DVT prophylaxis. Patient denies shortness of breath. - Time spent with patient greater than 35 minutes Sepsis Assessment - Evaluation Sepsis screening result: No Definite Risk Hospital Course Summary Disclaimer: The visit summary below is not to be considered part of the above Progress Note. Hospital Course: 12/10/16 17:18 Plan Appreciate medical consultation by the hospitalist services. All rehabilitation and pain control management as per Dr. Harp. Consults to PT and OT for further evaluation of postoperative strengthening and function Will monitor Accu-Cheks routinely and continue on metformin 500 milligrams twice a day and glyburide. Monitor blood pressure and continue on home regimen of Prinzidie Continue with Colace twice a day, will add MiraLAX for more aggressive bowel motivation Lovenox subcutaneous daily for DVT prophylaxis Will check CBC and BMP tomorrow morning to follow. Postoperative blood counts, renal function and electrolytes Appreciate medical consultation for existing comorbidities. The hospitalist services will plan to follow patient during her stay in the rehabilitation unit 12/12/16 18:10 Antonio continues to complain of bilateral hip and back pain. She also continues to have difficulty with constipation and worsening nausea. On exam she is alert and orientated and currently rates her pain at 8/10 at rest. Cardiac exam reveals irregular rhythm with tachycardia. Lungs are clear to auscultation though she appears to breath shallow at rest. Abdomen is distended with active bowel sounds. 2+ pedal pulses bilaterally without edema or calf pain. Repeat BMP today showed resolved hypokalemia with potassium at 3.7. Blood sugars continue to be variable with episodes of hypoglycemia. -Debility and back Pain, status post lumbar fusion on 12/06/[address] Delatorre. .Currently pain is 8/10 at rest in back and bilateral hips, worse with movement. .Continue to encourage therapies and pain control per Dr. Harp. -Constipation .Patient reports she has not had a BM since prior to her surgery on 12/06 despite aggresive bowel motivation. .Continue with suppositories, miralax, colace, mom and will add mag citrate x 1 dose now. .If no results tonight, consider imaging in AM -Anemia, most likely secondary to post op. .Present on admission. Hemoglobin 9.3. Monitor periodically throughout admission. -Hypertension. .Blood pressure on exam borderline hypotensive at 99/53. Continue to monitor blood pressure closely. Hold daily blood pressure medications if blood pressure less than 140/90. -Diabetes. .Current medications include glyburide and metformin. Patient continues to have episodes of hypoglycemia. Will hold glyburide and continue to monitor blood sugars closely. Hypoglycemia medications available if needed. .Will obtain A1c in AM. -Hyperlipidemia. .Continue home medications and follow as an outpatient. -Tachycardia. .Present on admission. .On exam, heart rate noted to be tachycardic and irregular. Obtain EKG now for further evaluation. Patient denies history of cardiac disorder or arrhythmia. Will obtain TSH for further evaluation as well as bladder scan. .Continue to monitor closely. .Dr. Wayne spoke with Dr. Fernie Servin on 12/11 regarding continuation of ASA and Lovenox. He stated it would be okay to restart aspirin 81 mg daily and she can take Lovenox 40 mg subcutaneous daily for DVT prophylaxis. Nursing was reportedly contacted by Dr. Servin's office today stating that the patient did not need to take ASA or lovenox. Multiple attempts to reach Dr. Servin were made to clarify the orders. Currently Lovenox and ASA remain on hold. Discussed with Dr. Wayne. Encourage SCDs for DVT prophylaxis. Patient denies shortness of breath. <Dunia Wayne - Last Filed: 12/12/16 19:55> Objective Vital signs: Temperature 98.3 F 12/12/16 16:00 Pulse Rate 102 H 12/12/16 17:11 Respiratory Rate 18 12/12/16 16:00 Blood Pressure 99/53 12/12/16 17:11 Pulse Oximetry 92 12/12/16 16:00 Oxygen Delivery Method Room Air Results - Labs CBC & Chem 7: 12/12/16 18:39 12/12/16 18:39 Assessment and Plan (1) Diabetes mellitus Current visit: Yes Status: Chronic (2) Benign essential hypertension Current visit: Yes Status: Chronic (3) Obesity (BMI 30.0-34.9) Current visit: Yes Status: Chronic (4) Debility Current visit: Yes Status: Acute (5) S/P lumbar spinal fusion Current visit: Yes Status: Acute (6) Hyperlipidemia Current visit: Yes Status: Chronic (7) Osteoarthritis Current visit: Yes Status: Chronic (8) Constipation Current visit: Yes Status: Acute (9) Anemia Current visit: Yes Status: Acute Assessment and Plan: 12/12/2016-I reviewed this chart, the patient history, and the SCREEN PRINTER HELPER's/PA's documented findings as above. We discussed and formulated the assessment and plan as above with the additions below. I've seen and examined the patient independently. I saw the patient this evening in her room accompanied by her . She had just undergone EKG was obtained because of borderline tachycardic rate with an irregular rhythm. EKG revealed sinus tachycardia with a rate of 112 and PVCs. Reported questionable acute GA on EKG. I did show the EKG to Dr. Mullen and he did not see any issues with acute GA. On exam the patient was in no acute distress. She denied having any chest pain or shortness of breath. She had nausea earlier today but none now. She's had some sweating earlier today with hypoglycemia but none now. She states she was feeling better after having some bowel movements today. She has been having low back pain and some groin and leg pain. On exam she is alert and in no acute distress. Chest is clear to auscultation. Cardiovascular reveals a borderline tachycardic rate with an irregular rhythm. Abdomen is soft and nontender. Extremities are free of edema. Skin is warm and dry. Troponin is normal. CBC reveals white count of 6.3, hemoglobin 9.8, platelets 269 BMP on recheck is normal. Glucose is 103. Magnesium 1.7. Calcium 9.0. Impression/plan Back pain and debility. Continue pain medication. Continue with therapy. Borderline tachycardia with PVCs. Troponin is normal Postop anemia is improving Diabetes with hypoglycemia-hold oral hypoglycemic medications for now. Hospital Course Summary Disclaimer: The visit summary below is not to be considered part of the above Progress Note.
[2016-12-12] MEDS: LIDOCAINE PATCH REMOVAL TOP SCH (21:16)
[2016-12-13] MEDS: OXYCODONE PO PRN ×3 (06:09→21:45)
[2016-12-13] MEDS: APAP PO PRN ×3 (06:09→21:45)
[2016-12-13] MEDS: OMEPRAZOLE 20 MG CAPSULE PO SCH (06:30)
[2016-12-13] MEDS: ASPIRIN *EC* 81 MG TABLET PO SCH ×3 (08:46→20:07)
[2016-12-13] MEDS: ENOXAPARIN 40 MG/0.4 ML INJECTION SQ SCH ×3 (08:46→20:07)
--- NOTE | 2016-12-13 08:55 | IRU Progress Note ---
- Subjective/Serverity of Illness Continues to have significant discomfort in the low back area. There is radiation down both legs. I asked her if there is a change from preop and she was unable to tell me. This has impacted her therapy. She finds it difficult to sit or stand. However once she gets to walking she is improved and is walking about 60 feet. We will add on a low-dose fentanyl patch to see if that will help. I did inspect the wound and there is no evidence of infection. There is no evidence of any underlying issue that might be a factor at this time. We are about 1 week out of surgery. Otherwise she denies any shortness of breath or chest pain. Her appetite remains reasonable. However it does vary quite a bit depending on her level of pain which impacts her blood sugars. Exam Vital Signs: Temperature 98.0 F 12/12/16 21:54 Pulse Rate 101 H 12/12/16 21:54 Respiratory Rate 18 12/12/16 21:54 Blood Pressure 93/60 12/12/16 22:08 Pulse Oximetry 80 L 12/12/16 21:54 Oxygen Delivery Method Room Air Height: 1.83 m Weight: 106.4 kg Body Mass Index: 31.8 - Constitutional Present: moderate distress, obese - Routine HEENT Exam Head: Present: normocephalic, atraumatic - Routine Neck Exam Present: supple - Routine Respiratory Exam Present: CTA bilaterally - Routine Cardiovascular Exam Present: RRR, no murmur - Routine Skin Exam Present: intact Comments: Her lumbar wound is inspected. No evidence of infection or inflammation. It looks good. - Routine Neurological Exam Present: alert, oriented X3 - Routine Psychiatric Exam Present: anxious Results IRU - Labs Labs: Fingerstick blood sugars are reviewed in detail. She has had some lows down to 46 at times. Her blood sugars are quite variable, likely related to her pain experienced from the surgery as well as variable intake. Sepsis Assessment - Evaluation Sepsis screening result: No Definite Risk IRU A/P (1) Back pain at L4-L5 level Current visit: Yes Status: Acute She is continuing to experience significant pain in the low back. However she is improving with regard ambulatory ability. We will add on a fentanyl patch at a low dose. (2) Diabetes mellitus Qualifiers: Diabetes mellitus type: type 2 Diabetes mellitus complication status: without complication Diabetes mellitus collateral analyst insulin use: without half-way use Qualified Code(s): E11.9 - Type 2 diabetes mellitus without complications Current visit: Yes Status: Chronic Her blood sugars remain variable likely related to the significant pain as well as very little intake which in turn is due to the pain. Management per hospitalist. (3) Benign essential hypertension Current visit: Yes Status: Chronic Blood pressure has been running a bit low in the 90s. We will discontinue lisinopril/hydrochlorothiazide for now. She may need to be on at least lisinopril for kidney protective purposes down the road. However we will let the blood pressure drift back up first. (4) Obesity (BMI 30.0-34.9) Current visit: Yes Status: Chronic (5) Debility Current visit: Yes Status: Acute Continues to have quite a bit of debility at the present time related to her recent surgery as well as the other medical problems impacting her rehabilitation. Continue working with PT and OT. Anticipate ultimately good results. DVT Prophylaxis: SCD's Resuscitation Status: Full Code - Course Hospital Course: Maynor Harp MD: - Interventions to Obtain Goals PT Treatment Plan: Functional Activities, Gait Training, Therapeutic Exercise OT Treatment Plan: ADL (Basic Care), Balance Training, IADL, Pt./Family Education, UE Functional Training
[2016-12-13] MEDS ORDERED: LAC HYDRIN PO PRN (09:37)
[2016-12-13] MEDS: DOCUSATE SODIUM 100 MG CAPSULE PO SCH ×2 (09:46→21:45)
[2016-12-13] MEDS: LIDOCAINE 5% PATCH TOP SCH ×2 (09:46→14:48)
[2016-12-13] MEDS: OXYBUTYNIN IR 5 MG TABLET PO SCH ×2 (09:46→21:45)
[2016-12-13] MEDS: BUSPIRONE 15 MG TABLET PO SCH ×2 (09:46→21:46)
[2016-12-13] MEDS: POLYETHYL GLYCOL 3350 17gm PACKET PO SCH (09:46)
--- NOTE | 2016-12-13 11:08 | IRU Progress Note ---
- Subjective/Serverity of Illness Please see previous progress note from earlier today. The patient does have history of lumbar spondylolisthesis with lumbar radiculopathy and L3-L5 posterior lumbar interbody fusion with instrumentation. Continues to have significant discomfort from the surgery. She does have discomfort going down the legs as well as some numbness. The patient does have myopathic and neuropathic changes. Exam Vital Signs: Temperature 98.0 F 12/12/16 21:54 Pulse Rate 101 H 12/12/16 21:54 Respiratory Rate 18 12/12/16 21:54 Blood Pressure 93/60 12/12/16 22:08 Pulse Oximetry 80 L 12/12/16 21:54 Oxygen Delivery Method Room Air Height: 1.83 m Weight: 106.4 kg Body Mass Index: 31.8 Sepsis Assessment - Evaluation Sepsis screening result: No Definite Risk IRU A/P (1) Back pain at L4-L5 level Current visit: Yes Status: Acute (2) Diabetes mellitus Qualifiers: Diabetes mellitus type: type 2 Diabetes mellitus complication status: without complication Diabetes mellitus prison insulin use: without prison use Qualified Code(s): E11.9 - Type 2 diabetes mellitus without complications Current visit: Yes Status: Chronic (3) Benign essential hypertension Current visit: Yes Status: Chronic (4) Obesity (BMI 30.0-34.9) Current visit: Yes Status: Chronic (5) Debility Current visit: Yes Status: Acute (6) S/P lumbar spinal fusion Current visit: Yes Status: Acute She is status post lumbar spinal fusion. Continues to have discomfort in the area which is a barrier to her progress with regard to rehabilitation. Continues to slowly improve. (7) Spondylolisthesis, lumbar region Current visit: Yes Status: Acute Prior to surgery she did have spondylolisthesis. Correction of this with lumbar spinal fusion has been performed. DVT Prophylaxis: SCD's Resuscitation Status: Full Code - Course Hospital Course: Maynor Harp MD: - Interventions to Obtain Goals PT Treatment Plan: Functional Activities, Gait Training, Therapeutic Exercise OT Treatment Plan: ADL (Basic Care), Balance Training, IADL, Pt./Family Education, UE Functional Training
--- NOTE | 2016-12-13 13:07 | IRU Team Meeting ---
IRU Team Meeting - Nursing Vital Signs: Vital Signs - 24 hr 12/12/16 16:00 12/12/16 17:11 12/12/16 21:19 Temperature 98.3 F Pulse Rate 94 102 H Respiratory Rate 18 16 Blood Pressure 93/57 99/53 Pulse Oximetry 92 12/12/16 21:23 12/12/16 21:54 12/12/16 22:08 Temperature 98.0 F Pulse Rate 100 101 H Respiratory Rate 16 18 Blood Pressure 85/46 93/60 Pulse Oximetry 96 80 L Current Medications: Acetaminophen (Tylenol) 650 mg PO Q4H PRN PRN Reason: Pain Aspirin (Ecotrin) 81 mg PO DAILY [facility] Last Admin: 12/13/16 09:47 Dose: Not Given Bisacodyl (Dulcolax) 10 mg RECTALLY DAILY PRN PRN Reason: Constipation Last Admin: 12/12/16 16:09 Dose: 10 mg Buspirone HCl (Buspar) 15 mg PO BID [facility] Last Admin: 12/13/16 09:46 Dose: 15 mg Cyclobenzaprine HCl (Flexeril) 5 mg PO TID PRN PRN Reason: Spasms Last Admin: 12/12/16 09:01 Dose: 5 mg Dextrose (D50%W) 20 ml IVP PRN PRN PRN Reason: Hypoglycemia Docusate Sodium (Colace) 100 mg PO BID [facility] Last Admin: 12/13/16 09:46 Dose: 100 mg Enoxaparin Sodium (Lovenox) 40 mg SQ DAILY [facility] Last Admin: 12/13/16 09:47 Dose: Not Given Fentanyl (Duragesic Patch) 12 mcg TD Q3D [facility] Last Admin: 12/13/16 09:47 Dose: 12 mcg Fentanyl Citrate (Duragesic Patch Removal) 1 removal TD Q3D [facility] Glucose (Glutose 15) 37.5 gm PO PRN PRN PRN Reason: Hypoglycemia Glyburide (Micronase) 10 mg PO WB [facility] Last Admin: 12/12/16 08:52 Dose: 10 mg Lidocaine (Lidoderm) 1 patch TOP DAILY [facility] Last Admin: 12/13/16 09:46 Dose: 1 patch Lidocaine HCl/Dextrose (Lidoderm Patch Removal) 1 removal TOP 2100 [facility] Last Admin: 12/12/16 21:16 Dose: 1 removal Magnesium Hydroxide (Mom) 30 ml PO DAILY PRN PRN Reason: Constipation Last Admin: 12/10/16 17:42 Dose: 30 ml Metformin HCl (Glucophage) 500 mg PO BIDWM [facility] Last Admin: 12/12/16 17:44 Dose: Not Given --Pom-- Lac-Hydrin ( Aluminum Lactate 12% 0 Applicator) 0 applicator PO PRN PRN Omeprazole (Prilosec) 20 mg PO ACB [facility] Last Admin: 12/12/16 06:11 Dose: 20 mg Ondansetron HCl (Zofran Po) 4 mg PO Q6H PRN PRN Reason: Nausea &/or vomiting Last Admin: 12/12/16 12:37 Dose: 4 mg Oxybutynin Chloride (Ditropan) 5 mg PO BID [facility] Last Admin: 12/13/16 09:46 Dose: 5 mg Oxycodone/Acetaminophen (Percocet 10/325) 1 tab PO Q4H PRN PRN Reason: Pain Last Admin: 12/13/16 06:09 Dose: 1 tab Polyethylene Glycol (Miralax) 17 gm PO DAILY [facility] Last Admin: 12/13/16 09:46 Dose: 17 gm Simvastatin (Zocor) 20 mg PO HS [facility] Last Admin: 12/12/16 21:16 Dose: 20 mg Comments: Pt is experiencing substantial pain in her back. We have discussed with hospitalist service. Fentanyl patch was added today. Constipation may be an issue. Having some nausea with the pain. Not eating as well. Oxygen sats borderline at times when she is anxious and almost holding her breath. Working with dietitian about her intake and diabetes. Pt relates that her decreased appetite is due to her back pain and nausea related to the pain. Intake being monitored. Adding no sugar added Hervey Shake. Will continue as she did take this today. - Physical Therapy Supine to Sit Bed Mobility Ability: Maximal Assistance Sit to Supine Bed Mobility Ability: Maximal Assistance Comments: Requiring max assistance for transfers and for ambulation. Improving but barriers include pain. - Occupational Therapy Eating Ability: Independent Grooming Ability: Contact Guard Assistance Bathing Ability: Maximal Assistance Lower Body Dressing Comment: She is motivated but limited by pain. Improving. - Care Plan Anticipated Length of Stay: 7 (Reassess in one week.) Anticipated DC Destination: Home Health Service (Wants to go home and that is hopeful. Still has a ways to go. ) Interventions/Goals: Continue to work on pain control. Improving with PT,OT. Cognition is an issue. Goals are to tolerate 60 minutes of therapy. Barriers are pain and cognition. Goal to improve pain management to 7-8/10 (currently 10). I personally led this multidisciplinary team meeting and concur with the conclusion and plans.
--- NOTE | 2016-12-13 13:31 | Progress Note ---
<Fanny Blackwood V - Last Filed: 12/13/16 14:02> Subjective: Camryn is seen this afternoon, finishing lunch. She is in the dining room in a chair, appears to be in a moderate amount of discomfort. She reports that since this morning. She has been having increased pain in her back that seems to radiate bilaterally to lower extremities and quadricep muscles. She complains of overall feeling weak. Last reported blood pressures were from last evening that indicated mild hypotension 93/60. Have asked nursing to repeat this now. Nursing also indicated patient was hypoxic, however, nurse, attributes this to holding her breath secondary to the pain. Objective Vital signs: Temperature 98.0 F 12/12/16 21:54 Pulse Rate 101 H 12/12/16 21:54 Respiratory Rate 18 12/12/16 21:54 Blood Pressure 93/60 12/12/16 22:08 Pulse Oximetry 80 L 12/12/16 21:54 Oxygen Delivery Method Room Air Body Mass Index: 31.8 - Constitutional Present: mild distress, well developed - Routine HEENT Exam Eye: Present: EOMI ENT: Present: mucous membranes moist, dentition normal - Routine Respiratory Exam Present: CTA bilaterally. Absent: wheezes - Routine Cardiovascular Exam Present: RRR, S1, S2. Absent: murmur - Routine Abdominal Exam Present: soft, normoactive bowel sounds, non distended. Absent: tenderness - Routine Extremities Exam Present: normal capillary refill Comments: Bilateral thigh discomfort - Routine Back/Spine/Pelvis Exam Back/Spine: Present: paraspinal tenderness. Absent: full ROM Back image: 1 - Pain, postop - Routine Skin Exam Present: intact, dry, warm - Routine Neurological Exam Present: alert, oriented X3, CN II-XII intact - Routine Lymphatic Exam Lymphatic: Absent: adenopathy - Routine Psychiatric Exam Present: normal affect, normal thought process Results - Labs CBC & Chem 7: 12/13/16 05:56 12/13/16 05:56 Assessment and Plan (1) Diabetes mellitus Current visit: Yes Status: Chronic (2) Benign essential hypertension Current visit: Yes Status: Chronic (3) Obesity (BMI 30.0-34.9) Current visit: Yes Status: Chronic (4) Debility Current visit: Yes Status: Acute (5) S/P lumbar spinal fusion Current visit: Yes Status: Acute (6) Hyperlipidemia Current visit: Yes Status: Chronic (7) Osteoarthritis Current visit: Yes Status: Chronic (8) Constipation Current visit: Yes Status: Acute (9) Anemia Current visit: Yes Status: Acute Assessment and Plan: 12/13/16 Did discuss current pain regimen with Dr. Harp. He did add fentanyl patch this morning for continued pain control. Continue with Lidoderm patch as well as Percocet. She did have an episode of hypoxia overnight. However has been on room air today. She denies feeling short of breath or having any further episodes of chest pain. Diabetes- blood sugars have continued to be well controlled. Metformin. Remains on hold given hypoglycemia yesterday. Fasting sugar this might was 76. Dr. Servin was paged today by Dr. Wayne regarding continuation of Lovenox and aspirin. We are waiting this returned call. Postoperative hemoglobin remained stable at 9.8. Chemistry panel normal. Will discuss further orders and plan of care with attending, Dr. Wayne Sepsis Assessment - Evaluation Sepsis screening result: No Definite Risk Hospital Course Summary Disclaimer: The visit summary below is not to be considered part of the above Progress Note. Hospital Course: 12/10/16 17:18 Plan Appreciate medical consultation by the hospitalist services. All rehabilitation and pain control management as per Dr. Harp. Consults to PT and OT for further evaluation of postoperative strengthening and function Will monitor Accu-Cheks routinely and continue on metformin 500 milligrams twice a day and glyburide. Monitor blood pressure and continue on home regimen of Prinzidie Continue with Colace twice a day, will add MiraLAX for more aggressive bowel motivation Lovenox subcutaneous daily for DVT prophylaxis Will check CBC and BMP tomorrow morning to follow. Postoperative blood counts, renal function and electrolytes Appreciate medical consultation for existing comorbidities. The hospitalist services will plan to follow patient during her stay in the rehabilitation unit 12/12/16 18:10 Antonio continues to complain of bilateral hip and back pain. She also continues to have difficulty with constipation and worsening nausea. On exam she is alert and orientated and currently rates her pain at 8/10 at rest. Cardiac exam reveals irregular rhythm with tachycardia. Lungs are clear to auscultation though she appears to breath shallow at rest. Abdomen is distended with active bowel sounds. 2+ pedal pulses bilaterally without edema or calf pain. Repeat BMP today showed resolved hypokalemia with potassium at 3.7. Blood sugars continue to be variable with episodes of hypoglycemia. -Debility and back Pain, status post lumbar fusion on 12/06/[address] Delatorre. .Currently pain is 8/10 at rest in back and bilateral hips, worse with movement. .Continue to encourage therapies and pain control per Dr. Harp. -Constipation .Patient reports she has not had a BM since prior to her surgery on 12/06 despite aggresive bowel motivation. .Continue with suppositories, miralax, colace, mom and will add mag citrate x 1 dose now. .If no results tonight, consider imaging in AM -Anemia, most likely secondary to post op. .Present on admission. Hemoglobin 9.3. Monitor periodically throughout admission. -Hypertension. .Blood pressure on exam borderline hypotensive at 99/53. Continue to monitor blood pressure closely. Hold daily blood pressure medications if blood pressure less than 140/90. -Diabetes. .Current medications include glyburide and metformin. Patient continues to have episodes of hypoglycemia. Will hold glyburide and continue to monitor blood sugars closely. Hypoglycemia medications available if needed. .Will obtain A1c in AM. -Hyperlipidemia. .Continue home medications and follow as an outpatient. -Tachycardia. .Present on admission. .On exam, heart rate noted to be tachycardic and irregular. Obtain EKG now for further evaluation. Patient denies history of cardiac disorder or arrhythmia. Will obtain TSH for further evaluation as well as bladder scan. .Continue to monitor closely. .Dr. Wayne spoke with Dr. Fernie Servin on 12/11 regarding continuation of ASA and Lovenox. He stated it would be okay to restart aspirin 81 mg daily and she can take Lovenox 40 mg subcutaneous daily for DVT prophylaxis. Nursing was reportedly contacted by Dr. Servin's office today stating that the patient did not need to take ASA or lovenox. Multiple attempts to reach Dr. Servin were made to clarify the orders. Currently Lovenox and ASA remain on hold. Discussed with Dr. Wayne. Encourage SCDs for DVT prophylaxis. Patient denies shortness of breath. 12/13/16 Did discuss current pain regimen with Dr. Harp. He did add fentanyl patch this morning for continued pain control. Continue with Lidoderm patch as well as Percocet. She did have an episode of hypoxia overnight. However has been on room air today. She denies feeling short of breath or having any further episodes of chest pain. Diabetes- blood sugars have continued to be well controlled. Metformin. Remains on hold given hypoglycemia yesterday. Fasting sugar this might was 76. Dr. Servin was paged today by Dr. Wayne regarding continuation of Lovenox and aspirin. We are waiting this returned call. Postoperative hemoglobin remained stable at 9.8. Chemistry panel normal. Will discuss further orders and plan of care with attending, Dr. Wayne <Dunia Wayne - Last Filed: 12/13/16 17:38> Objective Vital signs: Temperature 98.0 F 12/12/16 21:54 Pulse Rate 97 12/13/16 08:00 Respiratory Rate 18 12/12/16 21:54 Blood Pressure 119/61 12/13/16 08:00 Pulse Oximetry 94 12/13/16 12:00 Oxygen Delivery Method Room Air Oxygen Flow Rate 2 Results - Labs CBC & Chem 7: 12/13/16 05:56 12/13/16 05:56 Assessment and Plan (1) Diabetes mellitus Current visit: Yes Status: Chronic (2) Benign essential hypertension Current visit: Yes Status: Chronic (3) Obesity (BMI 30.0-34.9) Current visit: Yes Status: Chronic (4) Debility Current visit: Yes Status: Acute (5) S/P lumbar spinal fusion Current visit: Yes Status: Acute (6) Hyperlipidemia Current visit: Yes Status: Chronic (7) Osteoarthritis Current visit: Yes Status: Chronic (8) Constipation Current visit: Yes Status: Acute (9) Anemia Current visit: Yes Status: Acute Assessment and Plan: I reviewed this chart, the patient history, and the QUESTIONED DOCUMENTS EXAMINER's/PA's documented findings as above. We discussed and formulated the assessment and plan as above with the additions below. I've seen and examined the patient independently -Dr. Wayne Patient was seen late this afternoon accompanied by her son and . She was in the process of sitting up in bed and transferring to the wheelchair with assistance. She was in no acute distress lying down but pain was reportedly an 8. When she sat up she appeared in moderate to severe distress. Even after sitting up in a wheelchair for about 5 minutes she was still shaking and complaining of pain. Her and son stated that she been living with back pain for 5 years and never complained that now since surgery she has had severe pain. She stated that after surgery at the [facility] someone was helping her sit up in bed and she felt and heard a pop in her back and her back has hurt more since that time. She feels nauseated. She stated she vomited yesterday when she was in severe pain after getting up out of bed. She is moving her legs without apparent difficulty. On exam she is alert and moves all 4 extremities without difficulty. She is in moderate distress secondary to pain. Chest is clear to auscultation bilaterally. Cardiovascular reveals a regular rate and rhythm. Extremities are thin and free of edema. Skin is warm and dry without rashes. Impression/plan Severe back pain status post fusion L3 L5-I did call and talk with Dr. Harp and notified him of the patient's concern of hearing and feeling a pop in her back at the [facility] followed by worsening pain. Nausea, most likely secondary to pain Type 2 diabetes mellitus with hypoglycemia-oral medications are on hold Hypotension with history of hypertension-antihypertensives are currently on hold Tachycardia with PVCs yesterday-likely secondary to pain I spoke with Dr. Servin earlier today regarding Lovenox and aspirin and he stated aspirin 81 mg and Lovenox 40 mg subcutaneous daily would be fine. - Time spent with patient 25 - 35 minutes Hospital Course Summary Disclaimer: The visit summary below is not to be considered part of the above Progress Note. Addendum entered and electronically signed by Fanny Blackwood APRN 12/13/16 16 :52: Dr Wayne spoke with Dr Servin regarding anticoagulation. He verifies that it is safe to resume both. Nurses notified and communication order placed to resume both now.
[2016-12-13] MEDS: LIDOCAINE PATCH REMOVAL TOP SCH ×2 (14:49→22:28)
[2016-12-13] MEDS: CYCLOBENZAPRINE 5 MG TABLET PO PRN (18:06)
[2016-12-13] MEDS: INSULIN ASPART 100unit/ml INJECTION SQ PRN (18:06)
[2016-12-13] MEDS ORDERED: LABETALOL 100mg/20ml INJECTION IVP ONE (21:32)
[2016-12-13] MEDS: SIMVASTATIN 20 MG TABLET PO SCH (21:46)
[2016-12-14] MEDS: OMEPRAZOLE 20 MG CAPSULE PO SCH (06:19)
[2016-12-14] MEDS: APAP PO PRN ×3 (06:19→19:58)
[2016-12-14] MEDS: OXYCODONE PO PRN ×3 (06:19→19:58)
[2016-12-14] MEDS: CYCLOBENZAPRINE 5 MG TABLET PO PRN (07:40)
[2016-12-14] MEDS: BUSPIRONE 15 MG TABLET PO SCH ×2 (08:35→22:33)
[2016-12-14] MEDS: ASPIRIN *EC* 81 MG TABLET PO SCH (08:36)
[2016-12-14] MEDS: DOCUSATE SODIUM 100 MG CAPSULE PO SCH ×2 (08:37→22:32)
[2016-12-14] MEDS: LIDOCAINE 5% PATCH TOP SCH (08:37)
[2016-12-14] MEDS: ENOXAPARIN 40 MG/0.4 ML INJECTION SQ SCH (08:37)
[2016-12-14] MEDS: OXYBUTYNIN IR 5 MG TABLET PO SCH ×2 (08:41→22:32)
[2016-12-14] MEDS: BISACODYL 10 MG SUPPOSITORY RECTALLY PRN (09:22)
[2016-12-14] MEDS: MORPHINE SULFATE IR PO PRN ×2 (09:23→17:14)
[2016-12-14] MEDS: ONDANSETRON ODT 4 MG TABLET PO PRN ×2 (09:23→17:14)
--- NOTE | 2016-12-14 11:51 | IRU Progress Note ---
- Subjective/Serverity of Illness Camryn was interviewed and examined on she was lying in bed today. I received a phone call from the nurse earlier this morning indicating that the patient was having excruciating pain with any transfer or movement to the point that she could not participate with therapy. Camryn has had continued pain ever since admission to the IRU. We have attempted to adjust her pain medications and added on a dose of fentanyl patch a couple days ago. She continues to have severe discomfort. She describes this as worse than prior to surgery. There is some radiation down into the hips and even the legs at times. Has a sensation of numbness in the left leg down to the foot from time to time. This occurred preoperatively as well apparently. Careful exam today fails to show any "level" of numbness. She has good sensation bilaterally. In addition, I did check her strength on flexion and extension at the hips and knees appears to be fairly good. She has been able to ambulate although with severe pain. The wound itself does not appear to be infected. There is no redness and no warmth and no discharge. Her white count has remained stable and she is afebrile. Last bowel movement was a couple of days ago. We are working with mag citrate in this regard and she is probably constipated. When she is lying in bed she is reasonably comfortable. However with any movement in terms of transfers etc. she is having a lot of pain. I have placed a call to Dr. Servin last night and again this morning. I'm not certain of plain films would be of any benefit or if any other advanced imaging would show anything at this point. I will discuss the case with her surgeon Dr. Servin. We will need to hold therapy at the present time due to severe pain. Exam Vital Signs: Temperature 97.6 F 12/14/16 08:00 Pulse Rate 95 12/14/16 09:25 Respiratory Rate 24 12/14/16 08:00 Blood Pressure 149/72 H 12/14/16 08:00 Pulse Oximetry 92 12/14/16 09:25 Oxygen Delivery Method Room Air Oxygen Flow Rate 2 Height: 1.83 m Weight: 106.4 kg Body Mass Index: 31.8 - Constitutional Present: moderate distress, severe distress (with transfers and ambulation.), obese - Routine HEENT Exam Eye: Present: EOMI ENT: Present: mucous membranes moist - Routine Neck Exam Present: supple - Routine Respiratory Exam Present: CTA bilaterally - Routine Cardiovascular Exam Present: RRR, S1, S2, no murmur - Routine Abdominal Exam Present: soft, normoactive bowel sounds, non distended, non tender - Routine Extremities Exam Present: no edema - Routine Back/Spine/Pelvis Exam Comments: No evidence of infection currently noted in the wound. Strength of lower extremities appears to be adequate. Sensation appears to be normal bilaterally. - Routine Skin Exam Present: intact, dry. Absent: erythema - Routine Neurological Exam Present: alert, oriented X3, abnormal gait. Absent: sensory deficit, motor deficit - Routine Psychiatric Exam Present: normal affect, normal thought process, depressed, anxious Results IRU - Labs Labs: I reviewed her labs including blood sugars. Sepsis Assessment - Evaluation Sepsis screening result: No Definite Risk IRU A/P (1) Back pain at L4-L5 level Current visit: Yes Status: Acute Continues to have rather incapacitating back pain. When she is at rest she is reasonably comfortable. However with any movement including transfers from sit to stand etc. including ambulation, her pain is severe in the low back with radiation into the hips and legs. Strength however appears to be adequate as to exactly determine on exam. We have added on morphine sulfate immediate release and we will continue the fentanyl patch. I have a call placed to her surgeon Dr. Servin to get his input on this. We will need to hold therapies and present inferior of her debilitation from the severe pain. (2) Diabetes mellitus Qualifiers: Diabetes mellitus type: type 2 Diabetes mellitus complication status: without complication Diabetes mellitus prison insulin use: without prison use Qualified Code(s): E11.9 - Type 2 diabetes mellitus without complications Current visit: Yes Status: Chronic Her blood sugars are reviewed. Her intake is poor. Blood sugars appear to be reasonable and stable at present. (3) Benign essential hypertension Current visit: Yes Status: Chronic (4) Obesity (BMI 30.0-34.9) Current visit: Yes Status: Chronic Her obesity does impact her rehabilitation potential. In addition she has significant disuse myopathy which has limited her ability to improve. (5) Debility Current visit: Yes Status: Acute (6) S/P lumbar spinal fusion Current visit: Yes Status: Acute She first noted a popping sensation while in [place] at the hospital. I will discuss this with Dr. Servin as well. (7) Spondylolisthesis, lumbar region Current visit: Yes Status: Acute DVT Prophylaxis: SCD's Resuscitation Status: Full Code - Course Hospital Course: Maynor Harp MD: - Interventions to Obtain Goals PT Treatment Plan: Functional Activities, Gait Training, Therapeutic Exercise OT Treatment Plan: ADL (Basic Care), Balance Training, IADL, Pt./Family Education, UE Functional Training
[2016-12-14] MEDS: POLYETHYL GLYCOL 3350 17gm PACKET PO SCH (12:33)
--- NOTE | 2016-12-14 13:42 | Progress Note ---
Subjective: Camryn is seen multiple times today. Initially this morning when evaluated. She complains of significant amount of lumbar back pain along with continued pain to the lower extremities and left foot. She does not have any weakness or deficits. She states that she is unable to work with therapy because the pain is a huge barrier for her. Her bowels have not yet moved since surgery on . No difficulty with urination. Incision appears to be healing well without evidence of erythema or drainage. Objective Vital signs: Temperature 97.6 F 12/14/16 08:00 Pulse Rate 95 12/14/16 09:25 Respiratory Rate 24 12/14/16 08:00 Blood Pressure 149/72 H 12/14/16 08:00 Pulse Oximetry 92 12/14/16 09:25 Oxygen Delivery Method Room Air Oxygen Flow Rate 2 Body Mass Index: 31.8 - Constitutional Present: mild distress, well nourished, well developed - Routine HEENT Exam Eye: Present: EOMI, PERRL ENT: Present: mucous membranes moist, dentition normal - Routine Respiratory Exam Present: CTA bilaterally. Absent: wheezes - Routine Cardiovascular Exam Present: RRR, S1, S2. Absent: murmur - Routine Abdominal Exam Present: soft, non distended. Absent: normoactive bowel sounds (hypoactive), tenderness - Routine Extremities Exam Present: normal capillary refill - Routine Back/Spine/Pelvis Exam Back/Spine: Present: paraspinal tenderness (lumbar). Absent: erythema, warmth - Routine Skin Exam Present: intact, dry, warm - Routine Neurological Exam Present: alert, oriented X3, CN II-XII intact - Routine Lymphatic Exam Lymphatic: Absent: adenopathy - Routine Psychiatric Exam Present: normal affect, normal thought process Results - Labs CBC & Chem 7: 12/13/16 05:56 12/13/16 05:56 Assessment and Plan (1) Diabetes mellitus Current visit: Yes Status: Chronic (2) Benign essential hypertension Current visit: Yes Status: Chronic (3) Obesity (BMI 30.0-34.9) Current visit: Yes Status: Chronic (4) Debility Current visit: Yes Status: Acute (5) S/P lumbar spinal fusion Current visit: Yes Status: Acute (6) Hyperlipidemia Current visit: Yes Status: Chronic (7) Osteoarthritis Current visit: Yes Status: Chronic (8) Constipation Current visit: Yes Status: Acute (9) Anemia Current visit: Yes Status: Acute Assessment and Plan: 12/14/16 Continued postop back pain- Discussed with Dr. Harp and he is calling Dr Servin today to discuss concerns In the meantime Dr Harp did add extended release morphine 15 milligrams tablets every 4 hours as needed. Upon reevaluation this afternoon. Camryn does appear to be in much better pain control. Continue with fentanyl patch and Lidoderm patch Mag citrate was given this morning and her bowels are moving this afternoon. Type 2 diabetes mellitus with hypoglycemia-oral medications are on hold Continue with Lovenox and aspirin anticoagulation Routine laboratory studies remained stable. Will discuss orders and further plans with attending, Dr. Ruffin Sepsis Assessment - Evaluation Sepsis screening result: No Definite Risk Hospital Course Summary Disclaimer: The visit summary below is not to be considered part of the above Progress Note. Hospital Course: 12/10/16 17:18 Plan Appreciate medical consultation by the hospitalist services. All rehabilitation and pain control management as per Dr. Harp. Consults to PT and OT for further evaluation of postoperative strengthening and function Will monitor Accu-Cheks routinely and continue on metformin 500 milligrams twice a day and glyburide. Monitor blood pressure and continue on home regimen of Prinzidie Continue with Colace twice a day, will add MiraLAX for more aggressive bowel motivation Lovenox subcutaneous daily for DVT prophylaxis Will check CBC and BMP tomorrow morning to follow. Postoperative blood counts, renal function and electrolytes Appreciate medical consultation for existing comorbidities. The hospitalist services will plan to follow patient during her stay in the rehabilitation unit 12/12/16 18:10 Antonio continues to complain of bilateral hip and back pain. She also continues to have difficulty with constipation and worsening nausea. On exam she is alert and orientated and currently rates her pain at 8/10 at rest. Cardiac exam reveals irregular rhythm with tachycardia. Lungs are clear to auscultation though she appears to breath shallow at rest. Abdomen is distended with active bowel sounds. 2+ pedal pulses bilaterally without edema or calf pain. Repeat BMP today showed resolved hypokalemia with potassium at 3.7. Blood sugars continue to be variable with episodes of hypoglycemia. -Debility and back Pain, status post lumbar fusion on 12/06/[address] Delatorre. .Currently pain is 8/10 at rest in back and bilateral hips, worse with movement. .Continue to encourage therapies and pain control per Dr. Harp. -Constipation .Patient reports she has not had a BM since prior to her surgery on 12/06 despite aggresive bowel motivation. .Continue with suppositories, miralax, colace, mom and will add mag citrate x 1 dose now. .If no results tonight, consider imaging in AM -Anemia, most likely secondary to post op. .Present on admission. Hemoglobin 9.3. Monitor periodically throughout admission. -Hypertension. .Blood pressure on exam borderline hypotensive at 99/53. Continue to monitor blood pressure closely. Hold daily blood pressure medications if blood pressure less than 140/90. -Diabetes. .Current medications include glyburide and metformin. Patient continues to have episodes of hypoglycemia. Will hold glyburide and continue to monitor blood sugars closely. Hypoglycemia medications available if needed. .Will obtain A1c in AM. -Hyperlipidemia. .Continue home medications and follow as an outpatient. -Tachycardia. .Present on admission. .On exam, heart rate noted to be tachycardic and irregular. Obtain EKG now for further evaluation. Patient denies history of cardiac disorder or arrhythmia. Will obtain TSH for further evaluation as well as bladder scan. .Continue to monitor closely. .Dr. Wayne spoke with Dr. Fernie Servin on 12/11 regarding continuation of ASA and Lovenox. He stated it would be okay to restart aspirin 81 mg daily and she can take Lovenox 40 mg subcutaneous daily for DVT prophylaxis. Nursing was reportedly contacted by Dr. Servin's office today stating that the patient did not need to take ASA or lovenox. Multiple attempts to reach Dr. Servin were made to clarify the orders. Currently Lovenox and ASA remain on hold. Discussed with Dr. Wayne. Encourage SCDs for DVT prophylaxis. Patient denies shortness of breath. 12/13/16 Did discuss current pain regimen with Dr. Harp. He did add fentanyl patch this morning for continued pain control. Continue with Lidoderm patch as well as Percocet. She did have an episode of hypoxia overnight. However has been on room air today. She denies feeling short of breath or having any further episodes of chest pain. Diabetes- blood sugars have continued to be well controlled. Metformin. Remains on hold given hypoglycemia yesterday. Fasting sugar this might was 76. Dr. Servin was paged today by Dr. Wayne regarding continuation of Lovenox and aspirin. We are waiting this returned call. Postoperative hemoglobin remained stable at 9.8. Chemistry panel normal. Will discuss further orders and plan of care with attending, Dr. Wayne 12/14/16 Continued postop back pain- Discussed with Dr. Harp and he is calling Dr Servin today to discuss concerns In the meantime Dr Harp did add extended release morphine 15 milligrams tablets every 4 hours as needed. Upon reevaluation this afternoon. Camryn does appear to be in much better pain control. Continue with fentanyl patch and Lidoderm patch Mag citrate was given this morning and her bowels are moving this afternoon. Type 2 diabetes mellitus with hypoglycemia-oral medications are on hold Continue with Lovenox and aspirin anticoagulation Routine laboratory studies remained stable. Will discuss orders and further plans with attending, Dr. Ruffin
[2016-12-14] MEDS: DiphenhydrAMINE 25 MG CAPSULE PO PRN ×2 (14:10→19:59)
[2016-12-14] MEDS: LIDOCAINE PATCH REMOVAL TOP SCH (22:30)
[2016-12-14] MEDS: SIMVASTATIN 20 MG TABLET PO SCH (22:33)
[2016-12-15] MEDS: MORPHINE SULFATE IR PO PRN ×3 (05:03→21:21)
[2016-12-15] MEDS: OMEPRAZOLE 20 MG CAPSULE PO SCH (06:23)
[2016-12-15] MEDS: INSULIN ASPART 100unit/ml INJECTION SQ PRN ×3 (07:23→17:59)
[2016-12-15] MEDS: BUSPIRONE 15 MG TABLET PO SCH ×2 (09:49→21:21)
[2016-12-15] MEDS: APAP PO PRN ×2 (09:49→17:56)
[2016-12-15] MEDS: ASPIRIN *EC* 81 MG TABLET PO SCH (09:49)
[2016-12-15] MEDS: CYCLOBENZAPRINE 5 MG TABLET PO PRN (09:49)
[2016-12-15] MEDS: OXYCODONE PO PRN ×2 (09:49→17:56)
[2016-12-15] MEDS: DOCUSATE SODIUM 100 MG CAPSULE PO SCH ×2 (09:49→21:20)
[2016-12-15] MEDS: LIDOCAINE 5% PATCH TOP SCH (09:50)
[2016-12-15] MEDS: OXYBUTYNIN IR 5 MG TABLET PO SCH ×2 (09:50→21:21)
[2016-12-15] MEDS: POLYETHYL GLYCOL 3350 17gm PACKET PO SCH (09:51)
[2016-12-15] MEDS: ENOXAPARIN 40 MG/0.4 ML INJECTION SQ SCH (09:51)
--- NOTE | 2016-12-15 09:52 | CT Scan Report ---
Indication: back pain, L2-5 posterior interbody fusion 1 wk ago; r/o fx PROCEDURE: CT lumbar spine wo con: Encounter: Initial Comparison: None Technique: Axial noncontrast CT imaging of the lumbar spine was performed with coronal and sagittal two-dimensional reformats. Automated Exposure Control and Iterative Reconstruction dose reducing techniques were utilized. FINDINGS: Comparisons are unavailable. Under my numbering scheme there is posterior spinal fusion hardware extending from L3 through L5 with bilateral pedicle screws and rods. There is a disk prosthesis at the L3-L4 disk space. Grade 1 degenerative anterolisthesis of L4 on L5. Mild scoliotic curvature. No evidence of hardware loosening or failure. No acute fracture identified. There is a prominent fluid collection in the posterior soft tissues with areas of calcification likely related to the recent surgery. This measures 14.37 m craniocaudally and 4.9 cm anteroposteriorly on sagittal image #30. The paraspinal soft tissues are otherwise unremarkable. Fat-containing right ventral hernia noted incidentally. Old healed left 11th and 12th rib fractures. Segmental analysis: T11-T12: Normal T12-L1: Minimal disk osteophyte complex without central canal or neural foraminal stenosis. L1-L2: Small left foraminal disk bulge with degenerative facet disease contributing to mild left neural foraminal stenosis. No central canal or right foraminal stenosis. L2-L3: No focal disk herniation or gross central canal stenosis. Mild degenerative facet change without central canal stenosis. L3-L4: Metallic artifact. Posterior decompression. Calcified central disk protrusion slightly asymmetric towards the left. There is severe left neural foraminal stenosis which is primarily bony. Mild bony right neural foraminal narrowing. L4-L5: Posterior decompression. Listhesis contributes to mild right neural foraminal stenosis. Prominent osteophytes causing severe left neural foraminal stenosis. L5-S1: Posterior decompression. No focal central protrusion. No significant neural foraminal stenosis. Impression: 1. Spinal surgery as above with a postoperative fluid collection in the subcutaneous fat. This is probably a seroma. Recommend correlation with physical exam and clinical parameters to evaluate for any evidence of developing abscess. 2. Severe bony left foraminal stenosis at L3-L4 and L4-L5. .
--- NOTE | 2016-12-15 10:50 | Progress Note ---
Subjective: Camryn is seen in follow-up. She is lying in her bed and looks much better this morning. Her pain is better. Continues to complain of itching all over, but has no rash. Did not participate in therapy yesterday due to a "popping" noise/sensation in her back when she moves. On examination, there is no evidence of weeping, erythema or abscess formation. Incision appears to be healing well with no evidence of infection. No fever, leukocytosis, or other signs of infection. Her last bowel movement was last evening. She continues to have mild pain in the L leg and hip but it is less. No numbness or weakness. Objective Vital signs: Temperature 98.2 F 12/15/16 08:00 Pulse Rate 80 12/15/16 08:00 Respiratory Rate 16 12/15/16 08:00 Blood Pressure 134/71 12/15/16 08:00 Pulse Oximetry 91 12/15/16 08:00 Oxygen Delivery Method Room Air Oxygen Flow Rate 2 Body Mass Index: 31.8 - Constitutional Present: no acute distress, well nourished, well developed - Routine HEENT Exam Head: Present: normocephalic, atraumatic Eye: Present: EOMI ENT: Present: mucous membranes moist, dentition normal - Routine Respiratory Exam Present: CTA bilaterally. Absent: wheezes - Routine Cardiovascular Exam Present: RRR. Absent: murmur - Routine Abdominal Exam Present: soft, normoactive bowel sounds, non distended. Absent: tenderness - Routine Extremities Exam Present: no edema, normal capillary refill - Routine Back/Spine/Pelvis Exam Back/Spine: Absent: erythema, warmth - Routine Musculoskeletal Exam Musculoskeletal: Present: no joint swelling - Routine Skin Exam Present: dry, warm Comments: no evidence of abscess - Routine Neurological Exam Present: alert, oriented X3, CN II-XII intact - Routine Lymphatic Exam Lymphatic: Absent: adenopathy - Routine Psychiatric Exam Present: normal affect Results - Labs CBC & Chem 7: 12/13/16 05:56 12/13/16 05:56 Assessment and Plan (1) Diabetes mellitus Current visit: Yes Status: Chronic (2) Benign essential hypertension Current visit: Yes Status: Chronic (3) Obesity (BMI 30.0-34.9) Current visit: Yes Status: Chronic (4) Debility Current visit: Yes Status: Acute (5) S/P lumbar spinal fusion Current visit: Yes Status: Acute (6) Hyperlipidemia Current visit: Yes Status: Chronic (7) Osteoarthritis Current visit: Yes Status: Chronic (8) Constipation Current visit: Yes Status: Acute (9) Anemia Current visit: Yes Status: Acute Assessment and Plan: 12/15/[address] ordered by Dr. Harp reveals post-operative fluid collection in the subcutaneous fat, thought to be seroma. No evidence for infectious process at this point. Resume therapy. Appears to be in better pain control this morning. Continue with fentanyl patch and lidoderm patch and PRN morphine and percocet per Dr. Harp. Oral hypoglycemic medicines are currently on hold due to previous hypogylcemia. Resume metformin as glucose is trending high with FBS 151 this morning. Will continue to hold glyburide. Routine laboratory studies remain stable. Sepsis Assessment - Evaluation Sepsis screening result: No Definite Risk Hospital Course Summary Disclaimer: The visit summary below is not to be considered part of the above Progress Note. Hospital Course: 12/10/16 17:18 Plan Appreciate medical consultation by the hospitalist services. All rehabilitation and pain control management as per Dr. Harp. Consults to PT and OT for further evaluation of postoperative strengthening and function Will monitor Accu-Cheks routinely and continue on metformin 500 milligrams twice a day and glyburide. Monitor blood pressure and continue on home regimen of Prinzidie Continue with Colace twice a day, will add MiraLAX for more aggressive bowel motivation Lovenox subcutaneous daily for DVT prophylaxis Will check CBC and BMP tomorrow morning to follow. Postoperative blood counts, renal function and electrolytes Appreciate medical consultation for existing comorbidities. The hospitalist services will plan to follow patient during her stay in the rehabilitation unit 12/12/16 18:10 Antonio continues to complain of bilateral hip and back pain. She also continues to have difficulty with constipation and worsening nausea. On exam she is alert and orientated and currently rates her pain at 8/10 at rest. Cardiac exam reveals irregular rhythm with tachycardia. Lungs are clear to auscultation though she appears to breath shallow at rest. Abdomen is distended with active bowel sounds. 2+ pedal pulses bilaterally without edema or calf pain. Repeat BMP today showed resolved hypokalemia with potassium at 3.7. Blood sugars continue to be variable with episodes of hypoglycemia. -Debility and back Pain, status post lumbar fusion on 12/06/[address] Delatorre. .Currently pain is 8/10 at rest in back and bilateral hips, worse with movement. .Continue to encourage therapies and pain control per Dr. Harp. -Constipation .Patient reports she has not had a BM since prior to her surgery on 12/06 despite aggresive bowel motivation. .Continue with suppositories, miralax, colace, mom and will add mag citrate x 1 dose now. .If no results tonight, consider imaging in AM -Anemia, most likely secondary to post op. .Present on admission. Hemoglobin 9.3. Monitor periodically throughout admission. -Hypertension. .Blood pressure on exam borderline hypotensive at 99/53. Continue to monitor blood pressure closely. Hold daily blood pressure medications if blood pressure less than 140/90. -Diabetes. .Current medications include glyburide and metformin. Patient continues to have episodes of hypoglycemia. Will hold glyburide and continue to monitor blood sugars closely. Hypoglycemia medications available if needed. .Will obtain A1c in AM. -Hyperlipidemia. .Continue home medications and follow as an outpatient. -Tachycardia. .Present on admission. .On exam, heart rate noted to be tachycardic and irregular. Obtain EKG now for further evaluation. Patient denies history of cardiac disorder or arrhythmia. Will obtain TSH for further evaluation as well as bladder scan. .Continue to monitor closely. .Dr. Wayne spoke with Dr. Fernie Servin on 12/11 regarding continuation of ASA and Lovenox. He stated it would be okay to restart aspirin 81 mg daily and she can take Lovenox 40 mg subcutaneous daily for DVT prophylaxis. Nursing was reportedly contacted by Dr. Servin's office today stating that the patient did not need to take ASA or lovenox. Multiple attempts to reach Dr. Servin were made to clarify the orders. Currently Lovenox and ASA remain on hold. Discussed with Dr. Wayne. Encourage SCDs for DVT prophylaxis. Patient denies shortness of breath. 12/13/16 Did discuss current pain regimen with Dr. Harp. He did add fentanyl patch this morning for continued pain control. Continue with Lidoderm patch as well as Percocet. She did have an episode of hypoxia overnight. However has been on room air today. She denies feeling short of breath or having any further episodes of chest pain. Diabetes- blood sugars have continued to be well controlled. Metformin. Remains on hold given hypoglycemia yesterday. Fasting sugar this might was 76. Dr. Servin was paged today by Dr. Wayne regarding continuation of Lovenox and aspirin. We are waiting this returned call. Postoperative hemoglobin remained stable at 9.8. Chemistry panel normal. Will discuss further orders and plan of care with attending, Dr. Wayne 12/14/16 Continued postop back pain- Discussed with Dr. Harp and he is calling Dr Servin today to discuss concerns In the meantime Dr Harp did add extended release morphine 15 milligrams tablets every 4 hours as needed. Upon reevaluation this afternoon. Camryn does appear to be in much better pain control. Continue with fentanyl patch and Lidoderm patch Mag citrate was given this morning and her bowels are moving this afternoon. Type 2 diabetes mellitus with hypoglycemia-oral medications are on hold Continue with Lovenox and aspirin anticoagulation Routine laboratory studies remained stable. Will discuss orders and further plans with attending, Dr. Ruffin 12/15/[address] ordered by Dr. Harp reveals post-operative fluid collection in the subcutaneous fat, thought to be seroma. No evidence for infectious process at this point. Resume therapy. Appears to be in better pain control this morning. Continue with fentanyl patch and lidoderm patch and PRN morphine and percocet per Dr. Harp. Oral hypoglycemic medicines are currently on hold due to previous hypogylcemia. Resume metformin as glucose is trending high with FBS 151 this morning. Will continue to hold glyburide. Routine laboratory studies remain stable
--- NOTE | 2016-12-15 11:10 | IRU Progress Note ---
- Subjective/Serverity of Illness Camryn was evaluated in her room today while she was sitting in a chair. Does report that the discomfort is a bit improved. I discussed her case with Dr. Fernie Servin, her neurosurgeon who did the posterior fusion. He indicates that a CT scan would be appropriate to rule out fracture. This was obtained this morning and reveals a fluid collection which appears to be a seroma. Certainly clinically she does not have evidence of infection. No evidence of acute fracture etc. is identified. I will discuss this with the patient and resume therapy today. Otherwise, she denies any shortness of breath or chest pain. Appetite remains borderline. Exam Vital Signs: Temperature 98.2 F 12/15/16 08:00 Pulse Rate 80 12/15/16 08:00 Respiratory Rate 16 12/15/16 08:00 Blood Pressure 134/71 12/15/16 08:00 Pulse Oximetry 91 12/15/16 08:00 Oxygen Delivery Method Room Air Oxygen Flow Rate 2 Height: 1.83 m Weight: 106.4 kg Body Mass Index: 31.8 - Constitutional Present: moderate distress (discomfort only with movement and transfers) - Routine HEENT Exam Head: Present: normocephalic, atraumatic Eye: Present: EOMI ENT: Present: mucous membranes moist - Routine Neck Exam Present: supple - Routine Respiratory Exam Present: CTA bilaterally. Absent: accessory muscle use, dyspnea - Routine Cardiovascular Exam Present: RRR, S1, S2, no murmur - Routine Abdominal Exam Present: soft, normoactive bowel sounds, non distended, non tender - Routine Extremities Exam Present: no edema - Routine Skin Exam Absent: erythema - Routine Neurological Exam Present: alert, oriented X3. Absent: sensory deficit, motor deficit - Routine Psychiatric Exam Present: normal thought process, depressed, anxious Results IRU - Labs Labs: Review blood sugars by fingerstick. They are doing well. Unfortunately I fear this is due to her poor oral intake however. Sepsis Assessment - Evaluation Sepsis screening result: No Definite Risk IRU A/P (1) Back pain at L4-L5 level Current visit: Yes Status: Acute We held therapies yesterday due to her severe back pain until this could be further investigated. I have discussed with Dr. Servin this morning and a CT scan was obtained demonstrating no acute findings. She does have a fluid collection which is not unusual after surgery. No evidence of active infection identified. (2) Diabetes mellitus Qualifiers: Qualified Code(s): E11.9 - Type 2 diabetes mellitus without complications Current visit: Yes Status: Chronic Blood sugars reviewed and are stable. Appetite remains borderline however. 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 We will resume therapy today. (6) S/P lumbar spinal fusion Current visit: Yes Status: Acute (7) Spondylolisthesis, lumbar region Current visit: Yes Status: Acute DVT Prophylaxis: SCD's Resuscitation Status: Full Code - Course Hospital Course: Maynor Harp MD: 12/15/16 11:10 I did start morphine sulfate immediate release yesterday. She states this has helped her significantly with regard to discomfort. Thus far, no nausea or vomiting. CT scan was obtained after discussion with Dr. Fernie Servin. No acute fractures identified and no loosening is suspected. There is a posterior fluid collection which is not uncommon and likely a seroma. No clinical evidence of infection is noted. We will resume therapy today. - Interventions to Obtain Goals PT Treatment Plan: Functional Activities, Gait Training, Therapeutic Exercise OT Treatment Plan: ADL (Basic Care), Balance Training, IADL, Pt./Family Education, UE Functional Training
[2016-12-15] MEDS: DiphenhydrAMINE 25 MG CAPSULE PO PRN (21:20)
[2016-12-15] MEDS: SIMVASTATIN 20 MG TABLET PO SCH (21:21)
[2016-12-15] MEDS: LIDOCAINE PATCH REMOVAL TOP SCH (22:00)
[2016-12-16] MEDS: APAP PO PRN ×5 (06:16→21:40)
[2016-12-16] MEDS: OXYCODONE PO PRN ×5 (06:16→21:40)
[2016-12-16] MEDS: MORPHINE SULFATE IR PO PRN ×3 (08:37→18:58)
[2016-12-16] MEDS: ENOXAPARIN 40 MG/0.4 ML INJECTION SQ SCH (08:37)
[2016-12-16] MEDS: CYCLOBENZAPRINE 5 MG TABLET PO PRN ×2 (08:37→15:52)
[2016-12-16] MEDS: LIDOCAINE 5% PATCH TOP SCH (08:37)
[2016-12-16] MEDS: OMEPRAZOLE 20 MG CAPSULE PO SCH (08:37)
[2016-12-16] MEDS: OXYBUTYNIN IR 5 MG TABLET PO SCH ×2 (08:37→21:40)
[2016-12-16] MEDS: BUSPIRONE 15 MG TABLET PO SCH ×2 (08:37→21:40)
[2016-12-16] MEDS: DiphenhydrAMINE 25 MG CAPSULE PO PRN ×2 (08:38→21:42)
[2016-12-16] MEDS: ASPIRIN *EC* 81 MG TABLET PO SCH (08:38)
[2016-12-16] MEDS: POLYETHYL GLYCOL 3350 17gm PACKET PO SCH (08:39)
[2016-12-16] MEDS: DOCUSATE SODIUM 100 MG CAPSULE PO SCH ×2 (08:39→21:40)
[2016-12-16] MEDS: INSULIN ASPART 100unit/ml INJECTION SQ PRN ×3 (12:16→21:39)
[2016-12-16] MEDS: SIMVASTATIN 20 MG TABLET PO SCH (21:40)
[2016-12-16] MEDS: LIDOCAINE PATCH REMOVAL TOP SCH (21:41)
[2016-12-17] MEDS: OMEPRAZOLE 20 MG CAPSULE PO SCH (05:49)
[2016-12-17] MEDS: APAP PO PRN ×3 (05:49→17:48)
[2016-12-17] MEDS: OXYCODONE PO PRN ×3 (05:49→17:48)
[2016-12-17] MEDS: INSULIN ASPART 100unit/ml INJECTION SQ PRN ×3 (06:51→20:38)
[2016-12-17] MEDS: DiphenhydrAMINE 25 MG CAPSULE PO PRN ×2 (08:53→20:42)
[2016-12-17] MEDS: MORPHINE SULFATE IR PO PRN ×3 (08:53→20:39)
[2016-12-17] MEDS: ENOXAPARIN 40 MG/0.4 ML INJECTION SQ SCH (08:53)
[2016-12-17] MEDS: BUSPIRONE 15 MG TABLET PO SCH ×2 (08:53→20:40)
[2016-12-17] MEDS: CYCLOBENZAPRINE 5 MG TABLET PO PRN ×2 (08:53→15:13)
[2016-12-17] MEDS: OXYBUTYNIN IR 5 MG TABLET PO SCH ×2 (08:53→20:40)
[2016-12-17] MEDS: LIDOCAINE 5% PATCH TOP SCH (08:53)
[2016-12-17] MEDS: DOCUSATE SODIUM 100 MG CAPSULE PO SCH ×2 (08:53→20:40)
[2016-12-17] MEDS: ASPIRIN *EC* 81 MG TABLET PO SCH (08:53)
[2016-12-17] MEDS: POLYETHYL GLYCOL 3350 17gm PACKET PO SCH (08:54)
--- NOTE | 2016-12-17 16:03 | Progress Note ---
Subjective: Camryn is seen today in follow up. She reports ongoing pain in her back. Some improvement with pain medications. Reports pain continues in low back, some radiation down legs. Denies bowel and bladder changes. Reports that she is "shivering", but does not believe that she is running a fever. Chart is reviewed for collateral information. Objective Vital signs: Temperature 98.0 F 12/17/16 08:00 Pulse Rate 101 H 12/17/16 08:00 Respiratory Rate 16 12/17/16 08:00 Blood Pressure 120/65 12/17/16 08:00 Pulse Oximetry 92 12/17/16 08:00 Oxygen Delivery Method Room Air Oxygen Flow Rate 2 Weight: 104.9 kg - Constitutional Present: mild distress, obese, cooperative Comments: She appears a bit unwell. Mildly anxious. - Routine HEENT Exam Head: Present: normocephalic, atraumatic Eye: Present: EOMI, PERRL ENT: Present: mucous membranes moist - Routine Respiratory Exam Present: CTA bilaterally, distant breath sounds (No SOA. ). Absent: wheezes, crackles - Routine Cardiovascular Exam Present: RRR, S1, S2 - Routine Abdominal Exam Present: soft, normoactive bowel sounds, non distended, non tender - Routine Extremities Exam Present: no edema, non tender - Routine Musculoskeletal Exam Musculoskeletal: Present: normal strength, normal gait - Routine Skin Exam Present: intact, dry, warm - Routine Neurological Exam Present: alert, oriented X3 - Routine Psychiatric Exam Present: cooperative, anxious Results - Labs CBC & Chem 7: 12/13/16 05:56 12/13/16 05:56 - Impressions CT Spine Impression: 1. Spinal surgery as above with a postoperative fluid collection in the subcutaneous fat. This is probably a seroma. Recommend correlation with physical exam and clinical parameters to evaluate for any evidence of developing abscess. 2. Severe bony left foraminal stenosis at L3-L4 and L4-L5. . Assessment and Plan (1) Diabetes mellitus Current visit: Yes Status: Chronic (2) Benign essential hypertension Current visit: Yes Status: Chronic (3) Obesity (BMI 30.0-34.9) Current visit: Yes Status: Chronic (4) Debility Current visit: Yes Status: Acute (5) S/P lumbar spinal fusion Current visit: Yes Status: Acute (6) Hyperlipidemia Current visit: Yes Status: Chronic (7) Osteoarthritis Current visit: Yes Status: Chronic (8) Constipation Current visit: Yes Status: Acute (9) Anemia Current visit: Yes Status: Acute DVT Prophylaxis: Lovenox GI Prophylaxis: other (Omeprazole) Resuscitation Status: Full Code Assessment and Plan: 12/17/16- *S/P Lumbar Lami- Dr. Servin CT is reviewed- possible seroma. She is afebrile. Recheck labs in AM, continue to monitor for any infection concerns. Continue current pain medication. Add low dose Gabapentin BID- may be able to up-titrate if improvement in pain. Continue to work with pt. She wants to return home, but admits that she needs quite a lot of help to get up. *Anxiety- Buspar. *DM2- Resume metformin and monitor. Continue to hold Glyburide. *HTN- BP is well controlled. Not currently on medications. *Anemia- Repeat CBC in AM. Assess Iron panel. - Time spent with patient 25 - 35 minutes Sepsis Assessment - Evaluation Sepsis screening result: No Definite Risk Hospital Course Summary Disclaimer: The visit summary below is not to be considered part of the above Progress Note. Hospital Course: 12/10/16 17:18 Plan Appreciate medical consultation by the hospitalist services. All rehabilitation and pain control management as per Dr. Harp. Consults to PT and OT for further evaluation of postoperative strengthening and function Will monitor Accu-Cheks routinely and continue on metformin 500 milligrams twice a day and glyburide. Monitor blood pressure and continue on home regimen of Prinzidie Continue with Colace twice a day, will add MiraLAX for more aggressive bowel motivation Lovenox subcutaneous daily for DVT prophylaxis Will check CBC and BMP tomorrow morning to follow. Postoperative blood counts, renal function and electrolytes Appreciate medical consultation for existing comorbidities. The hospitalist services will plan to follow patient during her stay in the rehabilitation unit 12/12/16 18:10 Antonio continues to complain of bilateral hip and back pain. She also continues to have difficulty with constipation and worsening nausea. On exam she is alert and orientated and currently rates her pain at 8/10 at rest. Cardiac exam reveals irregular rhythm with tachycardia. Lungs are clear to auscultation though she appears to breath shallow at rest. Abdomen is distended with active bowel sounds. 2+ pedal pulses bilaterally without edema or calf pain. Repeat BMP today showed resolved hypokalemia with potassium at 3.7. Blood sugars continue to be variable with episodes of hypoglycemia. -Debility and back Pain, status post lumbar fusion on 12/06/[address] Delatorre. .Currently pain is 8/10 at rest in back and bilateral hips, worse with movement. .Continue to encourage therapies and pain control per Dr. Harp. -Constipation .Patient reports she has not had a BM since prior to her surgery on 12/06 despite aggresive bowel motivation. .Continue with suppositories, miralax, colace, mom and will add mag citrate x 1 dose now. .If no results tonight, consider imaging in AM -Anemia, most likely secondary to post op. .Present on admission. Hemoglobin 9.3. Monitor periodically throughout admission. -Hypertension. .Blood pressure on exam borderline hypotensive at 99/53. Continue to monitor blood pressure closely. Hold daily blood pressure medications if blood pressure less than 140/90. -Diabetes. .Current medications include glyburide and metformin. Patient continues to have episodes of hypoglycemia. Will hold glyburide and continue to monitor blood sugars closely. Hypoglycemia medications available if needed. .Will obtain A1c in AM. -Hyperlipidemia. .Continue home medications and follow as an outpatient. -Tachycardia. .Present on admission. .On exam, heart rate noted to be tachycardic and irregular. Obtain EKG now for further evaluation. Patient denies history of cardiac disorder or arrhythmia. Will obtain TSH for further evaluation as well as bladder scan. .Continue to monitor closely. .Dr. Wayne spoke with Dr. Fernie Sevrin on 12/11 regarding continuation of ASA and Lovenox. He stated it would be okay to restart aspirin 81 mg daily and she can take Lovenox 40 mg subcutaneous daily for DVT prophylaxis. Nursing was reportedly contacted by Dr. Servin's office today stating that the patient did not need to take ASA or lovenox. Multiple attempts to reach Dr. Servin were made to clarify the orders. Currently Lovenox and ASA remain on hold. Discussed with Dr. Wayne. Encourage SCDs for DVT prophylaxis. Patient denies shortness of breath. 12/13/16 Did discuss current pain regimen with Dr. Harp. He did add fentanyl patch this morning for continued pain control. Continue with Lidoderm patch as well as Percocet. She did have an episode of hypoxia overnight. However has been on room air today. She denies feeling short of breath or having any further episodes of chest pain. Diabetes- blood sugars have continued to be well controlled. Metformin. Remains on hold given hypoglycemia yesterday. Fasting sugar this might was 76. Dr. Servin was paged today by Dr. Wayne regarding continuation of Lovenox and aspirin. We are waiting this returned call. Postoperative hemoglobin remained stable at 9.8. Chemistry panel normal. Will discuss further orders and plan of care with attending, Dr. Wayne 12/14/16 Continued postop back pain- Discussed with Dr. Harp and he is calling Dr Servin today to discuss concerns In the meantime Dr Harp did add extended release morphine 15 milligrams tablets every 4 hours as needed. Upon reevaluation this afternoon. Camryn does appear to be in much better pain control. Continue with fentanyl patch and Lidoderm patch Mag citrate was given this morning and her bowels are moving this afternoon. Type 2 diabetes mellitus with hypoglycemia-oral medications are on hold Continue with Lovenox and aspirin anticoagulation Routine laboratory studies remained stable. Will discuss orders and further plans with attending, Dr. Ruffin 12/15/[address] ordered by Dr. Harp reveals post-operative fluid collection in the subcutaneous fat, thought to be seroma. No evidence for infectious process at this point. Resume therapy. Appears to be in better pain control this morning. Continue with fentanyl patch and lidoderm patch and PRN morphine and percocet per Dr. Harp. Oral hypoglycemic medicines are currently on hold due to previous hypogylcemia. Resume metformin as glucose is trending high with FBS 151 this morning. Will continue to hold glyburide. Routine laboratory studies remain stable 12/17/16 16:12 *S/P Lumbar Lami- Dr. Servin CT is reviewed- possible seroma. She is afebrile. Recheck labs in AM, continue to monitor for any infection concerns. Continue current pain medication. Add low dose Gabapentin BID- may be able to up-titrate if improvement in pain. Continue to work with pt. She wants to return home, but admits that she needs quite a lot of help to get up. *Anxiety- Buspar. *DM2- Resume metformin and monitor. Continue to hold Glyburide. *HTN- BP is well controlled. Not currently on medications. *Anemia- Repeat CBC in AM. Assess Iron panel.
[2016-12-17] MEDS: METFORMIN 500 MG TABLET PO SCH (17:48)
[2016-12-17] MEDS: GABAPENTIN 100 MG CAPSULE PO SCH (20:39)
[2016-12-17] MEDS: SIMVASTATIN 20 MG TABLET PO SCH (20:39)
[2016-12-17] MEDS: LIDOCAINE PATCH REMOVAL TOP SCH (20:43)
[2016-12-18] MEDS: SIMVASTATIN 20 MG TABLET PO SCH ×2 (01:22→20:22)
[2016-12-18] MEDS: DOCUSATE SODIUM 100 MG CAPSULE PO SCH ×2 (08:51→20:21)
[2016-12-18] MEDS: ASPIRIN *EC* 81 MG TABLET PO SCH (08:51)
[2016-12-18] MEDS: OXYBUTYNIN IR 5 MG TABLET PO SCH ×2 (08:51→20:22)
[2016-12-18] MEDS: BUSPIRONE 15 MG TABLET PO SCH ×2 (08:51→20:22)
[2016-12-18] MEDS: CYCLOBENZAPRINE 5 MG TABLET PO PRN ×2 (08:51→16:48)
[2016-12-18] MEDS: GABAPENTIN 100 MG CAPSULE PO SCH ×2 (08:51→20:22)
[2016-12-18] MEDS: MORPHINE SULFATE IR PO PRN (08:51)
[2016-12-18] MEDS: DiphenhydrAMINE 25 MG CAPSULE PO PRN ×2 (08:51→20:22)
[2016-12-18] MEDS: LIDOCAINE 5% PATCH TOP SCH (08:53)
[2016-12-18] MEDS: ENOXAPARIN 40 MG/0.4 ML INJECTION SQ SCH (08:53)
[2016-12-18] MEDS: POLYETHYL GLYCOL 3350 17gm PACKET PO SCH (08:55)
[2016-12-18] MEDS: OMEPRAZOLE 20 MG CAPSULE PO SCH (08:56)
[2016-12-18] MEDS: METFORMIN 500 MG TABLET PO SCH ×2 (09:22→16:48)
[2016-12-18] MEDS: OXYCODONE PO PRN ×3 (09:58→20:20)
[2016-12-18] MEDS: APAP PO PRN ×3 (09:58→20:20)
--- NOTE | 2016-12-18 10:24 | IRU Progress Note ---
- Subjective/Serverity of Illness Camryn continues to be anxious and upset regarding her pain situation. I asked her if her pain was better, worse or the same compared to last week. She indicated that it comes and goes. Right hip and leg is doing better she states. Now the pain is worse on the left side posteriorly. Appreciate Dr. Nuñez's input. Has been started on a low-dose of gabapentin. She is now on a fentanyl patch 12 g every 3 days plus as needed oxycodone. Also has morphine sulfate order. I think these are too many pain medications. My plan will be to increase to 25 g every 3 days and discontinue the morphine. We'll continue to make the oxycodone available. Her progress is slow. Barriers to improve and include her pain predominantly. In addition she does have anxiety and is on BuSpar twice daily. She does have history of diabetes. Her intake remains variable. Her blood sugars are actually running a bit higher at [id number]. Exam Vital Signs: Temperature 98.0 F 12/18/16 08:00 Pulse Rate 94 12/18/16 08:00 Respiratory Rate 16 12/18/16 08:00 Blood Pressure 130/82 12/18/16 08:00 Pulse Oximetry 93 12/18/16 08:00 Oxygen Delivery Method Room Air Oxygen Flow Rate 2 Height: 1.83 m Weight: 104.9 kg Body Mass Index: 31.8 - Constitutional Present: moderate distress - Routine HEENT Exam Head: Present: normocephalic Eye: Present: EOMI - Routine Neck Exam Present: supple - Routine Respiratory Exam Present: CTA bilaterally - Routine Cardiovascular Exam Present: RRR, S1, S2, no murmur - Routine Abdominal Exam Present: soft, normoactive bowel sounds, non distended, non tender - Routine Extremities Exam Present: no edema - Routine Skin Exam Present: intact, dry. Absent: erythema - Routine Neurological Exam Present: alert, oriented X3, CN II-XII intact - Routine Psychiatric Exam Present: normal thought process, depressed, anxious Results IRU - Labs Labs: I reviewed her blood sugars by fingerstick. Also reviewed today's labs indicating hemoglobin 9.3. Iron studies show a slightly low serum iron but with fairly normal TIBC and percent saturation. Sepsis Assessment - Evaluation Sepsis screening result: No Definite Risk IRU A/P (1) Back pain at L4-L5 level Current visit: Yes Status: Acute Her chronic back pain continues to be the main barrier to her progress. We will adjust her pain medications by increasing the fentanyl patch, discontinuing the morphine, continuing to allow oxycodone as needed. In addition, she is been started on gabapentin. With this combination she will be able to improve regarding her activity level etc. (2) Diabetes mellitus Qualifiers: Diabetes mellitus type: type 2 Diabetes mellitus complication status: without complication Diabetes mellitus fdc insulin use: without petroleum terminal plant operator use Qualified Code(s): E11.9 - Type 2 diabetes mellitus without complications Current visit: Yes Status: Chronic Blood sugars are reviewed and are slightly elevated. Her intake is quite variable. This is impacting her sugars. (3) Benign essential hypertension Current visit: Yes Status: Chronic Her blood pressure for the most part remains controlled. Occasionally levels are elevated likely related to pain. (4) Obesity (BMI 30.0-34.9) Current visit: Yes Status: Chronic (5) Debility Current visit: Yes Status: Acute She remains quite debilitated and will be unable to take care of herself at this point. We will continue working with her. If we can improve the pain level I think she can improve regarding her therapies. (6) S/P lumbar spinal fusion Current visit: Yes Status: Acute (7) Spondylolisthesis, lumbar region Current visit: Yes Status: Acute DVT Prophylaxis: Lovenox Resuscitation Status: Full Code - Course Hospital Course: Maynor Harp MD: 12/15/16 11:10 I did start morphine sulfate immediate release yesterday. She states this has helped her significantly with regard to discomfort. Thus far, no nausea or vomiting. CT scan was obtained after discussion with Dr. Fernie Servin. No acute fractures identified and no loosening is suspected. There is a posterior fluid collection which is not uncommon and likely a seroma. No clinical evidence of infection is noted. We will resume therapy today. 12/18/16 10:28 Her pain level is variable. It is now worse on the left leg compared to the right. The right side is improved. Gabapentin has been started. We will increase fentanyl patch to 25 g every 3 days and discontinue the morphine Continue oxycodone as needed Continue therapies and encouragement. Anxiety remains an issue as well and she is on BuSpar. - Interventions to Obtain Goals PT Treatment Plan: Functional Activities, Gait Training, Therapeutic Exercise OT Treatment Plan: ADL (Basic Care), Balance Training, IADL, Pt./Family Education, UE Functional Training
[2016-12-18] MEDS ORDERED: MethylPREDNISolone 4 MG TABLET PO ONE (16:05)
[2016-12-18] MEDS: INSULIN ASPART 100unit/ml INJECTION SQ PRN ×2 (17:39→21:18)
[2016-12-18] MEDS: LIDOCAINE PATCH REMOVAL TOP SCH (20:22)
[2016-12-19] MEDS: SIMVASTATIN 20 MG TABLET PO SCH ×2 (00:01→21:53)
[2016-12-19] MEDS: OXYCODONE PO PRN ×2 (05:47→21:52)
[2016-12-19] MEDS: APAP PO PRN ×2 (05:47→21:52)
[2016-12-19] MEDS: OMEPRAZOLE 20 MG CAPSULE PO SCH (05:48)
[2016-12-19] MEDS: CYCLOBENZAPRINE 5 MG TABLET PO PRN (08:13)
[2016-12-19] MEDS: GABAPENTIN 100 MG CAPSULE PO SCH ×2 (08:13→21:53)
[2016-12-19] MEDS: LIDOCAINE 5% PATCH TOP SCH (08:26)
[2016-12-19] MEDS: METFORMIN 500 MG TABLET PO SCH ×2 (09:06→17:55)
[2016-12-19] MEDS: DOCUSATE SODIUM 100 MG CAPSULE PO SCH ×2 (09:07→21:52)
[2016-12-19] MEDS: BUSPIRONE 15 MG TABLET PO SCH ×2 (09:08→21:52)
[2016-12-19] MEDS: OXYBUTYNIN IR 5 MG TABLET PO SCH ×2 (09:08→21:52)
[2016-12-19] MEDS: ASPIRIN *EC* 81 MG TABLET PO SCH (09:08)
[2016-12-19] MEDS: ENOXAPARIN 40 MG/0.4 ML INJECTION SQ SCH (09:09)
[2016-12-19] MEDS: POLYETHYL GLYCOL 3350 17gm PACKET PO SCH (09:09)
[2016-12-19] MEDS: GLYBURIDE 5 MG TABLET PO SCH (09:11)
[2016-12-19] MEDS: ACETAMINOPHEN 325 MG TABLET PO PRN (09:17)
--- NOTE | 2016-12-19 10:08 | IRU Progress Note ---
- Subjective/Serverity of Illness Mrs. Arellano continues to complain of severe pain. Seems to be pretty well localized to the low back, left hip and down the left leg with numbness in the foot. Any movement tends to set it off. When she is at rest it is not too bad. Her contacted Dr. Servin yesterday who recommended a Medrol Dosepak. This was initiated last night. In this regard we will need to monitor her sugars and indeed her sugar did go up to 229 yesterday evening. Her progress is being hindered by her severe pain. She seems to have a fairly good attitude although is discouraged about this. She says she just wants to get back home and have relief of pain and be able to do things again. She certainly is motivated. She does have significant anxiety with the discomfort as would be anticipated. She tends to sit in her chair leaning to her right side because every time she leaves the left side she has more pain. Based on the recent CT scan I'm wondering if foraminal stenosis is not the big issue here. We did discuss the possibility of epidural steroids. She had 3 epidural steroids prior to surgery the first 2 of which seemed to help some but the third one did not help any. If she is not improving with Medrol Dosepak we will discuss the case again with Dr. Servin. The oxycodone is not adequate pain relief. She is also on fentanyl patch recently increased to 25 g. We will restart the morphine sulfate immediate release since that seemed to help more. Exam Vital Signs: Temperature 98.6 F 12/19/16 08:00 Pulse Rate 95 12/19/16 08:00 Respiratory Rate 20 12/19/16 08:00 Blood Pressure 136/71 12/19/16 08:00 Pulse Oximetry 95 12/19/16 08:00 Oxygen Delivery Method Room Air Oxygen Flow Rate 2 Height: 1.83 m Weight: 104.9 kg Body Mass Index: 31.8 - Constitutional Present: moderate distress Comments: The patient is awake, alert and oriented and in some degree of pain, especially when she leans to her left. Pupils are equal. The neck is supple. Chest: Clear to auscultation bilaterally. Cor: RR with blanca, click nor murmur Abd: soft with normo-active bowel sounds. There are no masses, no tenderness and no guarding. Extremities: No edema is noted. No cyanosis is present. - Routine Respiratory Exam Present: CTA bilaterally - Routine Cardiovascular Exam Present: RRR, S1, S2, no murmur - Routine Abdominal Exam Present: soft, normoactive bowel sounds, non distended, non tender - Routine Neurological Exam Present: alert, oriented X3, CN II-XII intact - Routine Psychiatric Exam Present: normal affect, normal thought process, cooperative, anxious Results IRU - Labs Labs: Reviewed her blood sugars in detail. They are trending up a bit with the Medrol Dosepak. Sepsis Assessment - Evaluation Sepsis screening result: No Definite Risk IRU A/P (1) Back pain at L4-L5 level Current visit: Yes Status: Acute She continues to have significant discomfort in the left flank, into the left hip and on the left leg. I'm wondering if some of this is not the foraminal stenosis noted on CT scan. We will try the Medrol Dosepak. In addition we have added back in morphine sulfate. I spent a considerable amount of time discussing this with her today. She does indeed have significant pain but she is trying to work with therapists. The pain limits the progress at this time. If not improving in another day or 2 think she probably needs to see neurosurgery again. She reports diminished he does not want to do another surgery. However that may be the only option. (2) Diabetes mellitus Qualifiers: Diabetes mellitus type: type 2 Diabetes mellitus complication status: without complication Diabetes mellitus correction insulin use: without termite control representative use Qualified Code(s): E11.9 - Type 2 diabetes mellitus without complications Current visit: Yes Status: Chronic Blood sugars are reviewed. Fingerstick numbers are increasing a bit. She was to 29 last time. I think this is likely due to the steroids as well as her pain. In addition she does have reduced appetite but it tends to come and go. (3) Benign essential hypertension Current visit: Yes Status: Chronic (4) Obesity (BMI 30.0-34.9) Current visit: Yes Status: Chronic (5) Debility Current visit: Yes Status: Acute Continues to be significant debilitated related to her pain and therefore muscle weakness. (6) S/P lumbar spinal fusion Current visit: Yes Status: Acute (7) Spondylolisthesis, lumbar region Current visit: Yes Status: Acute DVT Prophylaxis: Lovenox Resuscitation Status: Full Code - Course Hospital Course: Maynor Harp MD: 12/15/16 11:10 I did start morphine sulfate immediate release yesterday. She states this has helped her significantly with regard to discomfort. Thus far, no nausea or vomiting. CT scan was obtained after discussion with Dr. Fernie Servin. No acute fractures identified and no loosening is suspected. There is a posterior fluid collection which is not uncommon and likely a seroma. No clinical evidence of infection is noted. We will resume therapy today. 12/18/16 10:28 Her pain level is variable. It is now worse on the left leg compared to the right. The right side is improved. Gabapentin has been started. We will increase fentanyl patch to 25 g every 3 days and discontinue the morphine Continue oxycodone as needed Continue therapies and encouragement. Anxiety remains an issue as well and she is on BuSpar. 12/19/16 10:11 With some morphine yesterday because of multiple pain medications. However clearly the oxycodone plus fentanyl was not working. We will switch to morphine sulfate immediate release. Pain is debilitating and a barrier to her progress. She is trying to walk. She does walk several feet but has a lot of pain every time she leans to her left side. Pain appears to be radicular in origin. Suspect foraminal stenosis. CT indicates that she has minimal right-sided stenosis but severe left-sided stenosis. 12/19/16 10:12 - Interventions to Obtain Goals PT Treatment Plan: Functional Activities, Gait Training, Therapeutic Exercise OT Treatment Plan: ADL (Basic Care), Balance Training, IADL, Pt./Family Education, UE Functional Training
[2016-12-19] MEDS: MORPHINE SULFATE IR PO PRN ×2 (10:24→14:41)
--- NOTE | 2016-12-19 12:40 | IRU Team Meeting ---
IRU Team Meeting - Nursing Vital Signs: Vital Signs - 24 hr 12/18/16 16:00 12/18/16 22:57 12/19/16 08:00 Temperature 97.8 F 97.9 F 98.6 F Pulse Rate 97 108 H 95 Respiratory Rate 16 22 20 Blood Pressure 137/74 122/67 136/71 Pulse Oximetry 98 99 95 Current Medications: Acetaminophen (Tylenol) 650 mg PO Q4H PRN PRN Reason: Pain Last Admin: 12/19/16 09:17 Dose: 650 mg Aspirin (Ecotrin) 81 mg PO DAILY [facility] Last Admin: 12/19/16 09:08 Dose: 81 mg Bisacodyl (Dulcolax) 10 mg RECTALLY DAILY PRN PRN Reason: Constipation Last Admin: 12/14/16 09:22 Dose: 10 mg Buspirone HCl (Buspar) 15 mg PO BID [facility] Last Admin: 12/19/16 09:08 Dose: 15 mg Cyclobenzaprine HCl (Flexeril) 5 mg PO TID PRN PRN Reason: Spasms Last Admin: 12/19/16 08:13 Dose: 5 mg Dextrose (D50%W) 20 ml IVP PRN PRN PRN Reason: Hypoglycemia Diphenhydramine HCl (Benadryl) 25 mg PO Q6H PRN PRN Reason: Itching Last Admin: 12/18/16 20:22 Dose: 25 mg Docusate Sodium (Colace) 100 mg PO BID [facility] Last Admin: 12/19/16 09:07 Dose: 100 mg Enoxaparin Sodium (Lovenox) 40 mg SQ DAILY [facility] Last Admin: 12/19/16 09:09 Dose: 40 mg Fentanyl (Duragesic Patch) 25 mcg TD Q3D [facility] Last Admin: 12/18/16 10:53 Dose: 25 mcg Fentanyl Citrate (Duragesic Patch Removal) 1 removal TD Q3D [facility] Gabapentin (Neurontin) 100 mg PO BID [facility] Last Admin: 12/19/16 08:13 Dose: 100 mg Glucose (Glutose 15) 37.5 gm PO PRN PRN PRN Reason: Hypoglycemia Glyburide (Micronase) 5 mg PO WB [facility] Last Admin: 12/19/16 09:11 Dose: 5 mg Insulin Aspart (Novolog) 0 unit SQ SS PRN; Protocol PRN Reason: Hyperglycemia Last Admin: 12/18/16 21:18 Dose: 2 unit Lidocaine (Lidoderm) 1 patch TOP DAILY [facility] Last Admin: 12/19/16 08:26 Dose: 1 patch Lidocaine HCl/Dextrose (Lidoderm Patch Removal) 1 removal TOP 2100 [facility] Last Admin: 12/18/16 20:22 Dose: 1 removal Magnesium Hydroxide (Mom) 30 ml PO DAILY PRN PRN Reason: Constipation Last Admin: 12/10/16 17:42 Dose: 30 ml Metformin HCl (Glucophage) 500 mg PO BIDWM [facility] Last Admin: 12/19/16 09:06 Dose: 500 mg Methylprednisolone (Medrol) 20 mg PO 1600 [facility] Stop: 12/19/16 16:01 Methylprednisolone (Medrol) 12 mg PO 1600 [facility] Stop: 12/21/16 16:01 Methylprednisolone (Medrol) 8 mg PO 1600 [facility] Stop: 12/22/16 16:01 Methylprednisolone (Medrol) 16 mg PO 1600 [facility] Stop: 12/20/16 16:01 Methylprednisolone (Medrol) 4 mg PO 1600 [facility] Stop: 12/23/16 16:01 Morphine Sulfate (Morphine Sulfate *Ir*) 15 mg PO Q4H PRN PRN Reason: Pain Last Admin: 12/19/16 10:24 Dose: 15 mg --Pom-- Lac-Hydrin ( Aluminum Lactate 12% 0 Applicator) 0 applicator PO PRN PRN Omeprazole (Prilosec) 20 mg PO ACB [facility] Last Admin: 12/19/16 05:48 Dose: 20 mg Ondansetron HCl (Zofran Po) 4 mg PO Q6H PRN PRN Reason: Nausea &/or vomiting Last Admin: 12/14/16 17:14 Dose: 4 mg Oxybutynin Chloride (Ditropan) 5 mg PO BID [facility] Last Admin: 12/19/16 09:08 Dose: 5 mg Oxycodone/Acetaminophen (Percocet 10/325) 1 tab PO Q4H PRN PRN Reason: Pain Last Admin: 12/19/16 05:47 Dose: 1 tab Polyethylene Glycol (Miralax) 17 gm PO DAILY [facility] Last Admin: 12/19/16 09:09 Dose: 17 gm Simvastatin (Zocor) 20 mg PO HS [facility] Last Admin: 12/19/16 00:01 Dose: Not Given Comments: Pt continues to complain of debilitating pain to the left flank/hip and left leg. Gabapentin started along with medrol dose willie. Dr. Servin has been notified. Fentanyl to 25 ug and restarted her MSIR. She is having pain upon leaning to her left side. Hip films done today. Hgb stable at 9.3. Dietitian: on 1800 ariana, no sugar added Mighty Shakes TID. Continues on shakes due to inconsistent intake due to her pain. 50-100% eating. - Physical Therapy Supine to Sit Bed Mobility Ability: Total Assistance Sit to Supine Bed Mobility Ability: Total Assistance Comments: Total assist with walking and with w/c propulsion. - Occupational Therapy Eating Ability: Independent Upper Body Dressing Ability: Minimal Assistance Lower Body Dressing Ability: Total Assistance Lower Body Dressing Comment: Unsafe with standing. Much pain prevents progress. Safety concerns. Was making progress but now plateuing. - Care Plan Interventions/Goals: Patient's goal is to go home with son and family. Live in a mobile home. She feels that she is at baseline. Goals: Not meeting 60 min of therapy at a time. Not meeting pain relief. Continue current goals. Will work on other modalities for the pain relief. Barriers: Anxiety, pain, fear.
--- NOTE | 2016-12-19 13:27 | Progress Note ---
Progress Note: Hip film reviewed. Some DJD noted. Awaiting official report.
--- NOTE | 2016-12-19 13:32 | XRay Report ---
Indication: left hip pain, no trauma PROCEDURE: XR hip LT min 2V: Encounter: Initial Comparison: None Findings: There is limited visualization of the pelvis on the AP view due to technical factors. No acute fracture seen on the frog-leg lateral view. Moderate joint space narrowing. Impression: Somewhat limited exam. No acute displaced fracture. .
[2016-12-19] MEDS ORDERED: MethylPREDNISolone 4 MG TABLET PO SCH (16:00)
--- NOTE | 2016-12-19 17:31 | Progress Note ---
Subjective: Camryn is absolutely miserable. The pain to her left hip is excruciating. Any small movement, even trying to reposition herself in bed, reproduces significant pain. She states the pain is mostly in her left hip, and shoots down the lateral aspect of her leg and down into her foot. She had to sit up and stand a couple of times for x-rays, and she had a difficult time with this. She denies any loss of bowel or bladder control. She denies any saddle paresthesias. She denies fevers or chills. No other myalgias to speak of. She's been having a poor appetite because of pain. She denies any nausea. She is having a bowel movement about every other day. Objective Vital signs: Temperature 98.6 F 12/19/16 08:00 Pulse Rate 95 12/19/16 08:00 Respiratory Rate 20 12/19/16 08:00 Blood Pressure 136/71 12/19/16 08:00 Pulse Oximetry 95 12/19/16 08:00 Oxygen Delivery Method Room Air Oxygen Flow Rate 2 Body Mass Index: 31.8 - Constitutional Present: mild distress, well nourished, well developed, obese - Routine HEENT Exam ENT: Present: mucous membranes dry - Routine Respiratory Exam Present: CTA bilaterally - Routine Cardiovascular Exam Present: RRR, S1, S2, murmur (grade 2/6) - Routine Abdominal Exam Present: soft, normoactive bowel sounds, non distended, non tender - Routine Extremities Exam Present: no edema, pulses intact, normal capillary refill. Absent: joint swelling - Routine Back/Spine/Pelvis Exam Comments: Significant left hip pain with any movement, limiting ability to assess muscular strength. Dressing to lower back is clean, dry and intact. - Routine Musculoskeletal Exam Musculoskeletal: Present: no clubbing or cyanosis, limited range of motion - Routine Skin Exam Present: intact, dry, warm - Routine Neurological Exam Present: alert, oriented X3 - Routine Psychiatric Exam Present: normal affect, normal thought process Results - Labs CBC & Chem 7: 12/18/16 04:31 12/18/16 04:31 Assessment and Plan (1) Diabetes mellitus Current visit: Yes Status: Chronic (2) Benign essential hypertension Current visit: Yes Status: Chronic (3) Obesity (BMI 30.0-34.9) Current visit: Yes Status: Chronic (4) Debility Current visit: Yes Status: Acute (5) S/P lumbar spinal fusion Current visit: Yes Status: Acute (6) Osteoarthritis Current visit: Yes Status: Chronic (7) Constipation Current visit: Yes Status: Acute (8) Anemia Current visit: Yes Status: Acute Assessment and Plan: S/P Lumbar laminectomy per Dr. Servin CT lumbar spine - possible seroma. 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 She remains afebrile. We'll repeat CBC tomorrow morning. Dr. Harp spoke with Dr. Servin. Medrol Dosepak was started. Pain medicines were also adjusted. HS Gabapentin has already been increased. Diabetes with hyperglycemia Blood sugars have been more elevated since starting steroids. Continue metformin; glyburide was restarted today. May need to add sliding scale insulin. Anemia H&H 9.3, 32.2 Iron panel pending Sepsis Assessment - Evaluation Sepsis screening result: No Definite Risk Hospital Course Summary Disclaimer: The visit summary below is not to be considered part of the above Progress Note. Hospital Course: 12/10/16 17:18 Plan Appreciate medical consultation by the hospitalist services. All rehabilitation and pain control management as per Dr. Harp. Consults to PT and OT for further evaluation of postoperative strengthening and function Will monitor Accu-Cheks routinely and continue on metformin 500 milligrams twice a day and glyburide. Monitor blood pressure and continue on home regimen of Prinzidie Continue with Colace twice a day, will add MiraLAX for more aggressive bowel motivation Lovenox subcutaneous daily for DVT prophylaxis Will check CBC and BMP tomorrow morning to follow. Postoperative blood counts, renal function and electrolytes Appreciate medical consultation for existing comorbidities. The hospitalist services will plan to follow patient during her stay in the rehabilitation unit 12/12/16 18:10 Antonio continues to complain of bilateral hip and back pain. She also continues to have difficulty with constipation and worsening nausea. On exam she is alert and orientated and currently rates her pain at 8/10 at rest. Cardiac exam reveals irregular rhythm with tachycardia. Lungs are clear to auscultation though she appears to breath shallow at rest. Abdomen is distended with active bowel sounds. 2+ pedal pulses bilaterally without edema or calf pain. Repeat BMP today showed resolved hypokalemia with potassium at 3.7. Blood sugars continue to be variable with episodes of hypoglycemia. -Debility and back Pain, status post lumbar fusion on 12/06/[address] Delatorre. .Currently pain is 8/10 at rest in back and bilateral hips, worse with movement. .Continue to encourage therapies and pain control per Dr. Harp. -Constipation .Patient reports she has not had a BM since prior to her surgery on 12/06 despite aggresive bowel motivation. .Continue with suppositories, miralax, colace, mom and will add mag citrate x 1 dose now. .If no results tonight, consider imaging in AM -Anemia, most likely secondary to post op. .Present on admission. Hemoglobin 9.3. Monitor periodically throughout admission. -Hypertension. .Blood pressure on exam borderline hypotensive at 99/53. Continue to monitor blood pressure closely. Hold daily blood pressure medications if blood pressure less than 140/90. -Diabetes. .Current medications include glyburide and metformin. Patient continues to have episodes of hypoglycemia. Will hold glyburide and continue to monitor blood sugars closely. Hypoglycemia medications available if needed. .Will obtain A1c in AM. -Hyperlipidemia. .Continue home medications and follow as an outpatient. -Tachycardia. .Present on admission. .On exam, heart rate noted to be tachycardic and irregular. Obtain EKG now for further evaluation. Patient denies history of cardiac disorder or arrhythmia. Will obtain TSH for further evaluation as well as bladder scan. .Continue to monitor closely. .Dr. Wayne spoke with Dr. Fernie Servin on 12/11 regarding continuation of ASA and Lovenox. He stated it would be okay to restart aspirin 81 mg daily and she can take Lovenox 40 mg subcutaneous daily for DVT prophylaxis. Nursing was reportedly contacted by Dr. Servin's office today stating that the patient did not need to take ASA or lovenox. Multiple attempts to reach Dr. Servin were made to clarify the orders. Currently Lovenox and ASA remain on hold. Discussed with Dr. Wayne. Encourage SCDs for DVT prophylaxis. Patient denies shortness of breath. 12/13/16 Did discuss current pain regimen with Dr. Harp. He did add fentanyl patch this morning for continued pain control. Continue with Lidoderm patch as well as Percocet. She did have an episode of hypoxia overnight. However has been on room air today. She denies feeling short of breath or having any further episodes of chest pain. Diabetes- blood sugars have continued to be well controlled. Metformin. Remains on hold given hypoglycemia yesterday. Fasting sugar this might was 76. Dr. Servin was paged today by Dr. Wayne regarding continuation of Lovenox and aspirin. We are waiting this returned call. Postoperative hemoglobin remained stable at 9.8. Chemistry panel normal. Will discuss further orders and plan of care with attending, Dr. Wayne 12/14/16 Continued postop back pain- Discussed with Dr. Harp and he is calling Dr Servin today to discuss concerns In the meantime Dr Harp did add extended release morphine 15 milligrams tablets every 4 hours as needed. Upon reevaluation this afternoon. Camryn does appear to be in much better pain control. Continue with fentanyl patch and Lidoderm patch Mag citrate was given this morning and her bowels are moving this afternoon. Type 2 diabetes mellitus with hypoglycemia-oral medications are on hold Continue with Lovenox and aspirin anticoagulation Routine laboratory studies remained stable. Will discuss orders and further plans with attending, Dr. Ruffin 12/15/[address] ordered by Dr. Harp reveals post-operative fluid collection in the subcutaneous fat, thought to be seroma. No evidence for infectious process at this point. Resume therapy. Appears to be in better pain control this morning. Continue with fentanyl patch and lidoderm patch and PRN morphine and percocet per Dr. Harp. Oral hypoglycemic medicines are currently on hold due to previous hypogylcemia. Resume metformin as glucose is trending high with FBS 151 this morning. Will continue to hold glyburide. Routine laboratory studies remain stable 12/17/16 16:12 *S/P Lumbar Lami- Dr. Servin CT is reviewed- possible seroma. She is afebrile. Recheck labs in AM, continue to monitor for any infection concerns. Continue current pain medication. Add low dose Gabapentin BID- may be able to up-titrate if improvement in pain. Continue to work with pt. She wants to return home, but admits that she needs quite a lot of help to get up. *Anxiety- Buspar. *DM2- Resume metformin and monitor. Continue to hold Glyburide. *HTN- BP is well controlled. Not currently on medications. *Anemia- Repeat CBC in AM. Assess Iron panel. 12/19/16 17:38 S/P Lumbar laminectomy per Dr. Servin CT lumbar spine - possible seroma. 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 She remains afebrile. We'll repeat CBC tomorrow morning. Dr. Harp spoke with Dr. Servin. Medrol Dosepak was started. Pain medicines were also adjusted. HS Gabapentin has already been increased. Diabetes with hyperglycemia Blood sugars have been more elevated since starting steroids. Continue metformin; glyburide was restarted today. May need to add sliding scale insulin. Anemia H&H 9.3, 32.2 Iron panel pending
[2016-12-19] MEDS: INSULIN ASPART 100unit/ml INJECTION SQ PRN (21:53)
[2016-12-19] MEDS ORDERED: GABAPENTIN 100 MG CAPSULE PO SCH (22:00)
[2016-12-19] MEDS: LIDOCAINE PATCH REMOVAL TOP SCH (22:03)
[2016-12-20] MEDS: INSULIN ASPART 100unit/ml INJECTION SQ PRN ×2 (06:21→21:42)
[2016-12-20] MEDS: OMEPRAZOLE 20 MG CAPSULE PO SCH (06:22)
[2016-12-20] MEDS: MORPHINE SULFATE IR PO PRN ×2 (06:26→11:21)
[2016-12-20] MEDS: CYCLOBENZAPRINE 5 MG TABLET PO PRN (08:04)
[2016-12-20] MEDS: OXYCODONE PO PRN ×2 (08:04→18:24)
[2016-12-20] MEDS: APAP PO PRN ×2 (08:04→18:24)
[2016-12-20] MEDS: LIDOCAINE 5% PATCH TOP SCH (08:05)
[2016-12-20] MEDS: ASCORBIC ACID 500 MG TABLET PO SCH (08:45)
[2016-12-20] MEDS: METFORMIN 500 MG TABLET PO SCH ×2 (08:45→18:01)
[2016-12-20] MEDS: GABAPENTIN 100 MG CAPSULE PO SCH ×3 (08:46→21:38)
[2016-12-20] MEDS: DOCUSATE SODIUM 100 MG CAPSULE PO SCH ×2 (08:46→21:39)
[2016-12-20] MEDS: POLYETHYL GLYCOL 3350 17gm PACKET PO SCH (08:46)
[2016-12-20] MEDS: ENOXAPARIN 40 MG/0.4 ML INJECTION SQ SCH (08:46)
[2016-12-20] MEDS: OXYBUTYNIN IR 5 MG TABLET PO SCH ×2 (08:46→21:38)
[2016-12-20] MEDS: BUSPIRONE 15 MG TABLET PO SCH ×2 (08:46→21:39)
[2016-12-20] MEDS: FERROUS SULFATE 324 MG TABLET PO SCH (08:46)
[2016-12-20] MEDS: ASPIRIN *EC* 81 MG TABLET PO SCH (08:47)
[2016-12-20] MEDS: GLYBURIDE 5 MG TABLET PO SCH (08:58)
--- NOTE | 2016-12-20 10:50 | IRU Progress Note ---
- Subjective/Serverity of Illness Patient's pain continues to be extremely debilitating for her. This also results in severe anxiety. She will stop breathing due to the pain. Pain is fairly well localized to the low back and left hip area with radiation down the left leg to the foot. Pain seems to be variable. It is worse in certain positions. If she is lying in bed is not too bad. If she rolls over or tries to sit up or tries to walk it is excruciating. We have begun the Medrol Dosepak per recommendation of Dr. Servin. Blood sugars are a bit more elevated. Oral intake is variable resulting in difficulty controlling her sugars at times. Dr. Simmons has added on glyburide. I discussed with her at length the fact that she does have neural foraminal stenosis on the left side which likely is resulting in severe muscle spasm which results in the pain. We're initiating some localized modalities ultrasound etc. to help this. It is my opinion that she is motivated to improve but that the pain is quite incapacitating. We have increased her gabapentin, we added morphine sulfate and of added local modalities. We will increase gabapentin again to see if that will help. In addition I discussed with her some breathing techniques in order to help relax and reduce the muscle spasm. Exam Vital Signs: Temperature 97.9 F 12/20/16 08:00 Pulse Rate 88 12/20/16 08:00 Respiratory Rate 18 12/20/16 08:00 Blood Pressure 127/78 12/20/16 08:00 Pulse Oximetry 95 12/20/16 08:00 Oxygen Delivery Method Room Air Oxygen Flow Rate 2 Height: 1.83 m Weight: 104.9 kg Body Mass Index: 31.8 - Constitutional Present: moderate distress Comments: The patient is awake, alert and oriented and in some acute painful distress. She is lying in bed with her left knee bent. She is anxious and tearful. Pupils are equal. The neck is supple. Chest: Clear to auscultation bilaterally. Cor: RR with blanca, click nor murmur Abd: soft with normo-active bowel sounds. There are no masses, no tenderness and no guarding. Extremities: No edema is noted. There are good pulses in both ankles. Exam the left hip shows full range of motion without pain. Knee exam is negative. Radiograph of left hip shows mild degenerative changes without acute trauma etc. - Routine HEENT Exam Head: Present: normocephalic Eye: Present: EOMI - Routine Neck Exam Present: supple - Routine Respiratory Exam Present: CTA bilaterally - Routine Cardiovascular Exam Present: RRR, S1, S2, no murmur - Routine Abdominal Exam Present: soft, normoactive bowel sounds, non distended - Routine Extremities Exam Present: full ROM. Absent: cyanosis, edema - Routine Skin Exam Present: intact. Absent: erythema - Routine Neurological Exam Present: alert, oriented X3, CN II-XII intact. Absent: sensory deficit, motor deficit - Routine Psychiatric Exam Present: normal thought process, cooperative, depressed, anxious Results IRU - Labs Labs: I personally reviewed the hip radiograph. Sepsis Assessment - Evaluation Sepsis screening result: No Definite Risk IRU A/P (1) Back pain at L4-L5 level Current visit: Yes Status: Acute Patient continues to be a significant barrier to her progress. She has pain in the left flank, left hip and down the left leg with numbness in the foot she states. Exam of left hip was performed today and feels to reveal pain on internal nor external rotation. For this reason I think the pain is likely related to neural foraminal stenosis resulting in nerve root irritation and secondary muscle spasm. We're initiating localized modalities for the muscle spasm and pain. In addition we'll increase gabapentin. 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 Appreciate hospitalists assistance with this. Her intake is variable. In addition the Medrol Dosepak has impacted her sugars. (3) Benign essential hypertension Current visit: Yes Status: Chronic (4) Obesity (BMI 30.0-34.9) Current visit: Yes Status: Chronic (5) Debility Current visit: Yes Status: Acute (6) S/P lumbar spinal fusion Current visit: Yes Status: Acute (7) Spondylolisthesis, lumbar region Current visit: Yes Status: Acute DVT Prophylaxis: Lovenox Resuscitation Status: Full Code - Course Hospital Course: Maynor Harp MD: 12/15/16 11:10 I did start morphine sulfate immediate release yesterday. She states this has helped her significantly with regard to discomfort. Thus far, no nausea or vomiting. CT scan was obtained after discussion with Dr. Fernie Servin. No acute fractures identified and no loosening is suspected. There is a posterior fluid collection which is not uncommon and likely a seroma. No clinical evidence of infection is noted. We will resume therapy today. 12/18/16 10:28 Her pain level is variable. It is now worse on the left leg compared to the right. The right side is improved. Gabapentin has been started. We will increase fentanyl patch to 25 g every 3 days and discontinue the morphine Continue oxycodone as needed Continue therapies and encouragement. Anxiety remains an issue as well and she is on BuSpar. 12/19/16 10:11 With some morphine yesterday because of multiple pain medications. However clearly the oxycodone plus fentanyl was not working. We will switch to morphine sulfate immediate release. Pain is debilitating and a barrier to her progress. She is trying to walk. She does walk several feet but has a lot of pain every time she leans to her left side. Pain appears to be radicular in origin. Suspect foraminal stenosis. CT indicates that she has minimal right-sided stenosis but severe left-sided stenosis. 12/19/16 10:12 12/20/16 10:53 Spent additional time with the patient today helping her to work on deep breathing exercises to relieve anxiety. In addition we discussed with her my theory that the problem is nerve root irritation from the neural foraminal stenosis on the left, resulting in muscle spasm. Local modalities are initiated regarding ultrasound etc. as well as a full massage. We'll increase gabapentin. Thus far she does not appear to be oversedated with this. Blood sugars are variable related to the Medrol Dosepak and variable oral intake. - Interventions to Obtain Goals PT Treatment Plan: Functional Activities, Gait Training, Therapeutic Exercise OT Treatment Plan: ADL (Basic Care), Balance Training, IADL, Pt./Family Education, UE Functional Training
[2016-12-20] MEDS ORDERED: MethylPREDNISolone 4 MG TABLET PO SCH (16:00)
[2016-12-20] MEDS: SIMVASTATIN 20 MG TABLET PO SCH (21:39)
[2016-12-20] MEDS: LIDOCAINE PATCH REMOVAL TOP SCH (21:40)
[2016-12-21] MEDS: APAP PO PRN ×3 (06:08→17:54)
[2016-12-21] MEDS: OXYCODONE PO PRN ×3 (06:08→17:54)
[2016-12-21] MEDS: OMEPRAZOLE 20 MG CAPSULE PO SCH (06:08)
[2016-12-21] MEDS: MORPHINE SULFATE IR PO PRN ×3 (07:19→18:43)
[2016-12-21] MEDS: METFORMIN 500 MG TABLET PO SCH ×2 (09:19→17:54)
[2016-12-21] MEDS: GLYBURIDE 5 MG TABLET PO SCH (09:19)
[2016-12-21] MEDS: FERROUS SULFATE 324 MG TABLET PO SCH (09:19)
[2016-12-21] MEDS: OXYBUTYNIN IR 5 MG TABLET PO SCH ×2 (09:19→21:34)
[2016-12-21] MEDS: ASPIRIN *EC* 81 MG TABLET PO SCH (09:19)
[2016-12-21] MEDS: GABAPENTIN 100 MG CAPSULE PO SCH ×3 (09:19→21:35)
[2016-12-21] MEDS: ENOXAPARIN 40 MG/0.4 ML INJECTION SQ SCH (09:20)
[2016-12-21] MEDS: BUSPIRONE 15 MG TABLET PO SCH ×2 (09:20→21:36)
[2016-12-21] MEDS: ASCORBIC ACID 500 MG TABLET PO SCH (09:20)
[2016-12-21] MEDS: DOCUSATE SODIUM 100 MG CAPSULE PO SCH ×2 (09:20→21:36)
[2016-12-21] MEDS: LIDOCAINE 5% PATCH TOP SCH ×2 (09:21→12:43)
[2016-12-21] MEDS: POLYETHYL GLYCOL 3350 17gm PACKET PO SCH (09:21)
--- NOTE | 2016-12-21 10:28 | Progress Note ---
Subjective: Camryn is seen this morning during breakfast. She continues to have increased lumbar back pain and also significant anxiety. Nursing and PT reports she is requiring a full life this morning to get up out of bed. Blood sugars are intermittently elevated. Fasting sugar this morning was 94, however, blood sugar last evening was elevated at 276. She remains afebrile and vital signs are stable. Objective Vital signs: Temperature 98.3 F 12/21/16 08:00 Pulse Rate 91 12/21/16 08:00 Respiratory Rate 18 12/21/16 08:00 Blood Pressure 143/83 H 12/21/16 08:00 Pulse Oximetry 98 12/21/16 08:00 Oxygen Delivery Method Room Air Oxygen Flow Rate 2 Body Mass Index: 31.8 - Constitutional Present: no acute distress, well nourished, well developed - Routine HEENT Exam Head: Present: normocephalic, atraumatic Eye: Present: EOMI, PERRL ENT: Present: mucous membranes moist, dentition normal - Routine Respiratory Exam Present: CTA bilaterally. Absent: wheezes - Routine Cardiovascular Exam Present: RRR, S1, S2, no murmur. Absent: murmur - Routine Abdominal Exam Present: soft, normoactive bowel sounds, non distended. Absent: tenderness - Routine Extremities Exam Present: normal capillary refill - Routine Back/Spine/Pelvis Exam Back/Spine: Present: paraspinal tenderness (lumbar), muscle spasm (lumbar) Back image: 1 - Pain 2 - Radiation - Routine Skin Exam Present: intact, dry, warm - Routine Neurological Exam Present: alert, oriented X3, CN II-XII intact - Routine Lymphatic Exam Lymphatic: Absent: adenopathy - Routine Psychiatric Exam Present: normal affect, normal thought process, anxious Results - Labs CBC & Chem 7: 12/20/16 04:51 12/20/16 04:51 Assessment and Plan (1) Diabetes mellitus Current visit: Yes Status: Chronic (2) Benign essential hypertension Current visit: Yes Status: Chronic (3) Obesity (BMI 30.0-34.9) Current visit: Yes Status: Chronic (4) Debility Current visit: Yes Status: Acute (5) S/P lumbar spinal fusion Current visit: Yes Status: Acute (6) Osteoarthritis Current visit: Yes Status: Chronic (7) Constipation Current visit: Yes Status: Acute (8) Anemia Current visit: Yes Status: Acute Assessment and Plan: 12/21 S/P Lumbar laminectomy per Dr. Servin Pain control continues to be a challenge. This is being managed by Dr. Harp. Continue with morphine 15 milligrams every 4 hours plus gabapentin 200 milligrams 3 times a day. Patient was started on steroids to help with inflammation. She will continue on a tapered dose. His is likely the cause of some intermittent hyperglycemia. Continue with metformin twice a day, glyburide was also added along with sliding scale insulin. Monitor for evidence of hypoglycemia. Anxiety- Continue supportive care. Steroids may cause patinet to feel more anxious. Anemia- hemoglobin stable at 9.3. Iron 27, TIBC 362 Sepsis Assessment - Evaluation Sepsis screening result: No Definite Risk Hospital Course Summary Disclaimer: The visit summary below is not to be considered part of the above Progress Note. Hospital Course: 12/10/16 17:18 Plan Appreciate medical consultation by the hospitalist services. All rehabilitation and pain control management as per Dr. Harp. Consults to PT and OT for further evaluation of postoperative strengthening and function Will monitor Accu-Cheks routinely and continue on metformin 500 milligrams twice a day and glyburide. Monitor blood pressure and continue on home regimen of Prinzidie Continue with Colace twice a day, will add MiraLAX for more aggressive bowel motivation Lovenox subcutaneous daily for DVT prophylaxis Will check CBC and BMP tomorrow morning to follow. Postoperative blood counts, renal function and electrolytes Appreciate medical consultation for existing comorbidities. The hospitalist services will plan to follow patient during her stay in the rehabilitation unit 12/12/16 18:10 Antonio continues to complain of bilateral hip and back pain. She also continues to have difficulty with constipation and worsening nausea. On exam she is alert and orientated and currently rates her pain at 8/10 at rest. Cardiac exam reveals irregular rhythm with tachycardia. Lungs are clear to auscultation though she appears to breath shallow at rest. Abdomen is distended with active bowel sounds. 2+ pedal pulses bilaterally without edema or calf pain. Repeat BMP today showed resolved hypokalemia with potassium at 3.7. Blood sugars continue to be variable with episodes of hypoglycemia. -Debility and back Pain, status post lumbar fusion on 12/06/[address] Delatorre. .Currently pain is 8/10 at rest in back and bilateral hips, worse with movement. .Continue to encourage therapies and pain control per Dr. Harp. -Constipation .Patient reports she has not had a BM since prior to her surgery on 12/06 despite aggresive bowel motivation. .Continue with suppositories, miralax, colace, mom and will add mag citrate x 1 dose now. .If no results tonight, consider imaging in AM -Anemia, most likely secondary to post op. .Present on admission. Hemoglobin 9.3. Monitor periodically throughout admission. -Hypertension. .Blood pressure on exam borderline hypotensive at 99/53. Continue to monitor blood pressure closely. Hold daily blood pressure medications if blood pressure less than 140/90. -Diabetes. .Current medications include glyburide and metformin. Patient continues to have episodes of hypoglycemia. Will hold glyburide and continue to monitor blood sugars closely. Hypoglycemia medications available if needed. .Will obtain A1c in AM. -Hyperlipidemia. .Continue home medications and follow as an outpatient. -Tachycardia. .Present on admission. .On exam, heart rate noted to be tachycardic and irregular. Obtain EKG now for further evaluation. Patient denies history of cardiac disorder or arrhythmia. Will obtain TSH for further evaluation as well as bladder scan. .Continue to monitor closely. .Dr. Wayne spoke with Dr. Fernie Servin on 12/11 regarding continuation of ASA and Lovenox. He stated it would be okay to restart aspirin 81 mg daily and she can take Lovenox 40 mg subcutaneous daily for DVT prophylaxis. Nursing was reportedly contacted by Dr. Servin's office today stating that the patient did not need to take ASA or lovenox. Multiple attempts to reach Dr. Servin were made to clarify the orders. Currently Lovenox and ASA remain on hold. Discussed with Dr. Wayne. Encourage SCDs for DVT prophylaxis. Patient denies shortness of breath. 12/13/16 Did discuss current pain regimen with Dr. Harp. He did add fentanyl patch this morning for continued pain control. Continue with Lidoderm patch as well as Percocet. She did have an episode of hypoxia overnight. However has been on room air today. She denies feeling short of breath or having any further episodes of chest pain. Diabetes- blood sugars have continued to be well controlled. Metformin. Remains on hold given hypoglycemia yesterday. Fasting sugar this might was 76. Dr. Servin was paged today by Dr. Wayne regarding continuation of Lovenox and aspirin. We are waiting this returned call. Postoperative hemoglobin remained stable at 9.8. Chemistry panel normal. Will discuss further orders and plan of care with attending, Dr. Wayne 12/14/16 Continued postop back pain- Discussed with Dr. Harp and he is calling Dr Servin today to discuss concerns In the meantime Dr Harp did add extended release morphine 15 milligrams tablets every 4 hours as needed. Upon reevaluation this afternoon. Camryn does appear to be in much better pain control. Continue with fentanyl patch and Lidoderm patch Mag citrate was given this morning and her bowels are moving this afternoon. Type 2 diabetes mellitus with hypoglycemia-oral medications are on hold Continue with Lovenox and aspirin anticoagulation Routine laboratory studies remained stable. Will discuss orders and further plans with attending, Dr. Ruffin 12/15/[address] ordered by Dr. Harp reveals post-operative fluid collection in the subcutaneous fat, thought to be seroma. No evidence for infectious process at this point. Resume therapy. Appears to be in better pain control this morning. Continue with fentanyl patch and lidoderm patch and PRN morphine and percocet per Dr. Harp. Oral hypoglycemic medicines are currently on hold due to previous hypogylcemia. Resume metformin as glucose is trending high with FBS 151 this morning. Will continue to hold glyburide. Routine laboratory studies remain stable 12/17/16 16:12 *S/P Lumbar Lami- Dr. Servin CT is reviewed- possible seroma. She is afebrile. Recheck labs in AM, continue to monitor for any infection concerns. Continue current pain medication. Add low dose Gabapentin BID- may be able to up-titrate if improvement in pain. Continue to work with pt. She wants to return home, but admits that she needs quite a lot of help to get up. *Anxiety- Buspar. *DM2- Resume metformin and monitor. Continue to hold Glyburide. *HTN- BP is well controlled. Not currently on medications. *Anemia- Repeat CBC in AM. Assess Iron panel. 12/19/16 17:38 S/P Lumbar laminectomy per Dr. Servin CT lumbar spine - possible seroma. 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 She remains afebrile. We'll repeat CBC tomorrow morning. Dr. Harp spoke with Dr. Servin. Medrol Dosepak was started. Pain medicines were also adjusted. HS Gabapentin has already been increased. Diabetes with hyperglycemia Blood sugars have been more elevated since starting steroids. Continue metformin; glyburide was restarted today. May need to add sliding scale insulin. Anemia H&H 9.3, 32.2 Iron panel pending 12/21 S/P Lumbar laminectomy per Dr. Servin Pain control continues to be a challenge. This is being managed by Dr. Harp. Continue with morphine 15 milligrams every 4 hours plus gabapentin 200 milligrams 3 times a day. Patient was started on steroids to help with inflammation. She will continue on a tapered dose. His is likely the cause of some intermittent hyperglycemia. Continue with metformin twice a day, glyburide was also added along with sliding scale insulin. Monitor for evidence of hypoglycemia. Anxiety- Continue supportive care. Steroids may cause patinet to feel more anxious. Anemia- hemoglobin stable at 9.3. Iron 27, TIBC 362
--- NOTE | 2016-12-21 11:00 | IRU Progress Note ---
- Subjective/Serverity of Illness Camryn was interviewed and examined when she was in her room. Physical therapy started local modalities regarding her pain in the left hip going down the left leg. We are hopeful this will provide benefit. In addition, yesterday we increased her gabapentin to 200 mg tid. She is on fentanyl patch 25 g every 3 days plus as needed morphine or Percocet depending on the level of pain. The patient does state that her pain is a bit improved when she is in a sitting situation. However with transfers it is very painful still. There is a lot of pain down into the left ankle and left foot apparently. This seems to be the major barrier to her progress. I reviewed with her my theory that she does have foraminal stenosis which is resulting in nerve root irritation which secondarily results in muscle spasm. This then causes the pain. I think if we can work on local treatment (massage, ice pack, possibly e-stim? and ultrasound) that will provide significant benefit for her. In addition, we'll need to increase her fentanyl patch to 50 g every 3 days. She states that her bowels are moving if she is eating. Her oral intake is quite variable because the pain. Sometimes she eats very little. This also results in her blood sugars being quite variable. This is impacting her therapy as well. She is motivated to go home. I asked her what is necessary for her to safely go home at this time. She says that she would sure like the pain to be much better control. She does live in a camper with her family. There is no room for a wheelchair. Exam Vital Signs: Temperature 98.3 F 12/21/16 08:00 Pulse Rate 91 12/21/16 08:00 Respiratory Rate 18 12/21/16 08:00 Blood Pressure 143/83 H 12/21/16 08:00 Pulse Oximetry 98 12/21/16 08:00 Oxygen Delivery Method Room Air Oxygen Flow Rate 2 Height: 1.83 m Weight: 104.9 kg Body Mass Index: 31.8 - Constitutional Present: moderate distress Comments: The patient is awake, alert and oriented and in some acute distress. However since she is sitting it is much improved she states. Pain mainly is with transfers and ambulation. Pupils are equal. The neck is supple. Chest: Clear to auscultation bilaterally. Cor: RR with no blanca, click nor murmur Abd: soft with normo-active bowel sounds. There are no masses, no tenderness and no guarding. Extremities: No edema is noted. . She does express anxiety and concern about going home. - Routine HEENT Exam Head: Present: normocephalic Eye: Present: EOMI ENT: Present: mucous membranes moist - Routine Neck Exam Present: supple, full ROM - Routine Respiratory Exam Present: CTA bilaterally - Routine Cardiovascular Exam Present: RRR, S1, S2, no murmur - Routine Abdominal Exam Present: soft, normoactive bowel sounds, non distended, non tender - Routine Extremities Exam Present: no edema - Routine Skin Exam Present: intact. Absent: erythema - Routine Neurological Exam Present: alert, oriented X3, CN II-XII intact. Absent: altered mental status - Routine Psychiatric Exam Present: normal thought process, depressed, anxious Results IRU - Labs Labs: Blood sugars reviewed and are variable. Sepsis Assessment - Evaluation Sepsis screening result: No Definite Risk IRU A/P (1) Back pain at L4-L5 level Current visit: Yes Status: Acute Continues to complain of severe radicular pain primarily in the left buttock down into the left leg. Local modalities have been initiated and I am hopeful these will provide benefit for her. In addition we will need to increase the fentanyl patch today to 50 g every 3 days. Gabapentin was recently increased to 200 mg 3 times daily. She has significant barriers to going home primarily her pain. We are encouraging her to participate with therapy so that she can regain mobility to get back home. (2) Diabetes mellitus Qualifiers: Diabetes mellitus type: type 2 Diabetes mellitus complication status: without complication Diabetes mellitus middle or intermediate school principal insulin use: without fpc use Qualified Code(s): E11.9 - Type 2 diabetes mellitus without complications Current visit: Yes Status: Chronic Blood sugars are variable. At times they're a bit likely related to the Medrol Dosepak. At times they're low, likely due to poor oral intake which in turn is due to the pain. This is impacting her therapy as well in terms of nutritional status and energy. (3) Benign essential hypertension Current visit: Yes Status: Chronic (4) Obesity (BMI 30.0-34.9) Current visit: Yes Status: Chronic (5) Debility Current visit: Yes Status: Acute Continues to be significantly debilitated related to her pain and weakness. (6) S/P lumbar spinal fusion Current visit: Yes Status: Acute (7) Spondylolisthesis, lumbar region Current visit: Yes Status: Acute DVT Prophylaxis: Lovenox Resuscitation Status: Full Code - Course Hospital Course: Maynor Harp MD: 12/15/16 11:10 I did start morphine sulfate immediate release yesterday. She states this has helped her significantly with regard to discomfort. Thus far, no nausea or vomiting. CT scan was obtained after discussion with Dr. Fernie Servin. No acute fractures identified and no loosening is suspected. There is a posterior fluid collection which is not uncommon and likely a seroma. No clinical evidence of infection is noted. We will resume therapy today. 12/18/16 10:28 Her pain level is variable. It is now worse on the left leg compared to the right. The right side is improved. Gabapentin has been started. We will increase fentanyl patch to 25 g every 3 days and discontinue the morphine Continue oxycodone as needed Continue therapies and encouragement. Anxiety remains an issue as well and she is on BuSpar. 12/19/16 10:11 With some morphine yesterday because of multiple pain medications. However clearly the oxycodone plus fentanyl was not working. We will switch to morphine sulfate immediate release. Pain is debilitating and a barrier to her progress. She is trying to walk. She does walk several feet but has a lot of pain every time she leans to her left side. Pain appears to be radicular in origin. Suspect foraminal stenosis. CT indicates that she has minimal right-sided stenosis but severe left-sided stenosis. 12/19/16 10:12 12/20/16 10:53 Spent additional time with the patient today helping her to work on deep breathing exercises to relieve anxiety. In addition we discussed with her my theory that the problem is nerve root irritation from the neural foraminal stenosis on the left, resulting in muscle spasm. Local modalities are initiated regarding ultrasound etc. as well as a full massage. We'll increase gabapentin. Thus far she does not appear to be oversedated with this. Blood sugars are variable related to the Medrol Dosepak and variable oral intake. 12/21/16 11:04 Again appreciated hospitalist's input. Pain control is a major barrier to her improvement. Today we are increasing fat no patch to 50 g every 3 days. Recently we increased gabapentin which should be helping the pain. In addition we initiated local modalities to help with muscle spasm and pain relief in the left buttock. - Interventions to Obtain Goals PT Treatment Plan: Functional Activities, Gait Training, Therapeutic Exercise OT Treatment Plan: ADL (Basic Care), Balance Training, IADL, Pt./Family Education, UE Functional Training
[2016-12-21] MEDS: INSULIN ASPART 100unit/ml INJECTION SQ PRN ×2 (12:42→22:58)
--- NOTE | 2016-12-21 13:21 | Progress Note ---
Progress Note: Due to variable intake, as well as the fact that she has a stage II pressure ulcer, we will check a pre-albumin to monitor for nutritional status.
--- NOTE | 2016-12-21 15:17 | Wound Care Progress Note ---
Wound Management - Patient Status Premedicated Prior to Dressing Change: No - Wound Posterior Buttock Wound Type: Pressure Injury Wound Present on Admission?: No Wound Staging: Stage II Length: 1 Width: 0.5 Depth: 0.1 Tunneling: No Undermining: No Drainage Description: Serous Drainage Amount: Scant Drainage Odor: No Odor Primary Dressing: Foam Dressing (Staff has been treating keeping covered, verbalized understanding that pt needs to be offloaded most of the time, even when sitting.) Dressing Change Date: 12/21/16 Dressing Change Patient Tolerance: Tolerated Well
[2016-12-21] MEDS: DULOXETINE 30 MG CAPSULE PO SCH (15:57)
[2016-12-21] MEDS ORDERED: MethylPREDNISolone 4 MG TABLET PO SCH (16:00)
[2016-12-21] MEDS: SIMVASTATIN 20 MG TABLET PO SCH (21:34)
[2016-12-21] MEDS: LIDOCAINE PATCH REMOVAL TOP SCH (21:36)
[2016-12-22] MEDS: OMEPRAZOLE 20 MG CAPSULE PO SCH ×2 (04:50→05:47)
[2016-12-22] MEDS: MORPHINE SULFATE IR PO PRN ×3 (07:16→18:12)
[2016-12-22] MEDS: POLYETHYL GLYCOL 3350 17gm PACKET PO SCH ×2 (09:04→20:43)
[2016-12-22] MEDS: ENOXAPARIN 40 MG/0.4 ML INJECTION SQ SCH (09:04)
[2016-12-22] MEDS: METFORMIN 500 MG TABLET PO SCH ×2 (09:05→18:12)
[2016-12-22] MEDS: GLYBURIDE 5 MG TABLET PO SCH (09:05)
[2016-12-22] MEDS: GABAPENTIN 100 MG CAPSULE PO SCH ×4 (09:05→20:43)
[2016-12-22] MEDS: FERROUS SULFATE 324 MG TABLET PO SCH (09:06)
[2016-12-22] MEDS: APAP PO PRN ×2 (09:06→16:01)
[2016-12-22] MEDS: BUSPIRONE 15 MG TABLET PO SCH ×3 (09:06→20:42)
[2016-12-22] MEDS: ASCORBIC ACID 500 MG TABLET PO SCH (09:06)
[2016-12-22] MEDS: DULOXETINE 30 MG CAPSULE PO SCH (09:06)
[2016-12-22] MEDS: OXYCODONE PO PRN ×2 (09:06→16:01)
[2016-12-22] MEDS: DOCUSATE SODIUM 100 MG CAPSULE PO SCH ×3 (09:06→20:42)
[2016-12-22] MEDS: OXYBUTYNIN IR 5 MG TABLET PO SCH ×3 (09:07→20:42)
[2016-12-22] MEDS: ASPIRIN *EC* 81 MG TABLET PO SCH (09:07)
[2016-12-22] MEDS: LIDOCAINE 5% PATCH TOP SCH (11:11)
[2016-12-22] MEDS: BISACODYL 10 MG SUPPOSITORY RECTALLY PRN (11:11)
[2016-12-22] MEDS ORDERED: MethylPREDNISolone 4 MG TABLET PO SCH (16:00)
[2016-12-22 16:38] VITALS: BMI 31.4
[2016-12-22] MEDS: SIMVASTATIN 20 MG TABLET PO SCH ×2 (19:45→22:24)
[2016-12-22] MEDS: CYCLOBENZAPRINE 5 MG TABLET PO PRN (19:45)
[2016-12-22] MEDS: LIDOCAINE PATCH REMOVAL TOP SCH (21:00)
[2016-12-22] MEDS: INSULIN ASPART 100unit/ml INJECTION SQ PRN (21:48)
[2016-12-23] MEDS: OMEPRAZOLE 20 MG CAPSULE PO SCH (05:36)
[2016-12-23] MEDS: MORPHINE SULFATE IR PO PRN (08:24)
--- NOTE | 2016-12-23 09:13 | Progress Note ---
Subjective: Camryn is still quite miserable. While the pain shooting down her left leg has abated somewhat, she awoke with severe lower back pain which she has difficulty describing. She is also chilling, which is unusual b/c she's normally hot. No fevers or diaphoresis. She has no appetite but denies abdominal pain or nausea. Her bowels are moving with PO meds. Nursing staff report mild brown-colored drainage from the lower part of the incision. Objective Vital signs: Temperature 98.5 F 12/22/16 22:02 Pulse Rate 99 12/23/16 08:00 Respiratory Rate 20 12/23/16 08:00 Blood Pressure 138/63 12/23/16 08:00 Pulse Oximetry 91 12/23/16 08:00 Oxygen Delivery Method Room Air Oxygen Flow Rate 2 Height: 1.83 m Weight: 104.9 kg Body Mass Index: 31.4 - Constitutional Present: moderate distress Comments: Appears, ill, tired. - Routine HEENT Exam Eye: Absent: conjunctival icterus ENT: Present: mucous membranes dry - Routine Respiratory Exam Present: CTA bilaterally - Routine Cardiovascular Exam Present: S1, S2 - Routine Abdominal Exam Present: soft, normoactive bowel sounds, non distended, non tender - Routine Extremities Exam Present: no edema, pulses intact - Routine Back/Spine/Pelvis Exam Back image: 1 - dressing c/d/i. No surrounding erythema. No drainage on dressing. (Changed this morning) - Routine Musculoskeletal Exam Musculoskeletal: Present: no clubbing or cyanosis - Routine Skin Exam Present: dry, warm Comments: reported stage II ulcer to posterior buttocks - Routine Neurological Exam Present: alert, oriented X3 tired Results - Labs CBC & Chem 7: 12/20/16 04:51 12/20/16 04:51 Assessment and Plan (1) Diabetes mellitus Current visit: Yes Status: Chronic (2) Benign essential hypertension Current visit: Yes Status: Chronic (3) Obesity (BMI 30.0-34.9) Current visit: Yes Status: Chronic (4) Debility Current visit: Yes Status: Acute (5) S/P lumbar spinal fusion Current visit: Yes Status: Acute (6) Osteoarthritis Current visit: Yes Status: Chronic (7) Constipation Current visit: Yes Status: Acute (8) Anemia Current visit: Yes Status: Acute Assessment and Plan: S/P Lumbar laminectomy per Dr. Servin Concern about underlying infection - of SIRS criteria she has tachycardia and tachypnea. With qSOFA, she has 1/3 with tachypnea. She is also chilling and nurses report brown-colored drainage from incision. Will start sepsis workup - CBC, CMP, lactate, procalcitonin, BC x2, UA. Continue pain mgt and steroids. DM2 Hyperglycemia - intermittednt and she's actually had some low readings. Her oral intake has been poor. Hold glyburide and continue SSI along with Metformin. Iron-deficiency anemia Start iron + vitamin C. Sepsis Assessment - Evaluation Sepsis screening result: No Definite Risk Hospital Course Summary Disclaimer: The visit summary below is not to be considered part of the above Progress Note. Hospital Course: 12/10/16 17:18 Plan Appreciate medical consultation by the hospitalist services. All rehabilitation and pain control management as per Dr. Harp. Consults to PT and OT for further evaluation of postoperative strengthening and function Will monitor Accu-Cheks routinely and continue on metformin 500 milligrams twice a day and glyburide. Monitor blood pressure and continue on home regimen of Prinzidie Continue with Colace twice a day, will add MiraLAX for more aggressive bowel motivation Lovenox subcutaneous daily for DVT prophylaxis Will check CBC and BMP tomorrow morning to follow. Postoperative blood counts, renal function and electrolytes Appreciate medical consultation for existing comorbidities. The hospitalist services will plan to follow patient during her stay in the rehabilitation unit 12/12/16 18:10 Antonio continues to complain of bilateral hip and back pain. She also continues to have difficulty with constipation and worsening nausea. On exam she is alert and orientated and currently rates her pain at 8/10 at rest. Cardiac exam reveals irregular rhythm with tachycardia. Lungs are clear to auscultation though she appears to breath shallow at rest. Abdomen is distended with active bowel sounds. 2+ pedal pulses bilaterally without edema or calf pain. Repeat BMP today showed resolved hypokalemia with potassium at 3.7. Blood sugars continue to be variable with episodes of hypoglycemia. -Debility and back Pain, status post lumbar fusion on 12/06/[address] Delatorre. .Currently pain is 8/10 at rest in back and bilateral hips, worse with movement. .Continue to encourage therapies and pain control per Dr. Harp. -Constipation .Patient reports she has not had a BM since prior to her surgery on 12/06 despite aggresive bowel motivation. .Continue with suppositories, miralax, colace, mom and will add mag citrate x 1 dose now. .If no results tonight, consider imaging in AM -Anemia, most likely secondary to post op. .Present on admission. Hemoglobin 9.3. Monitor periodically throughout admission. -Hypertension. .Blood pressure on exam borderline hypotensive at 99/53. Continue to monitor blood pressure closely. Hold daily blood pressure medications if blood pressure less than 140/90. -Diabetes. .Current medications include glyburide and metformin. Patient continues to have episodes of hypoglycemia. Will hold glyburide and continue to monitor blood sugars closely. Hypoglycemia medications available if needed. .Will obtain A1c in AM. -Hyperlipidemia. .Continue home medications and follow as an outpatient. -Tachycardia. .Present on admission. .On exam, heart rate noted to be tachycardic and irregular. Obtain EKG now for further evaluation. Patient denies history of cardiac disorder or arrhythmia. Will obtain TSH for further evaluation as well as bladder scan. .Continue to monitor closely. .Dr. Wayne spoke with Dr. Fernie Servin on 12/11 regarding continuation of ASA and Lovenox. He stated it would be okay to restart aspirin 81 mg daily and she can take Lovenox 40 mg subcutaneous daily for DVT prophylaxis. Nursing was reportedly contacted by Dr. Servin's office today stating that the patient did not need to take ASA or lovenox. Multiple attempts to reach Dr. Servin were made to clarify the orders. Currently Lovenox and ASA remain on hold. Discussed with Dr. Wayne. Encourage SCDs for DVT prophylaxis. Patient denies shortness of breath. 12/13/16 Did discuss current pain regimen with Dr. Harp. He did add fentanyl patch this morning for continued pain control. Continue with Lidoderm patch as well as Percocet. She did have an episode of hypoxia overnight. However has been on room air today. She denies feeling short of breath or having any further episodes of chest pain. Diabetes- blood sugars have continued to be well controlled. Metformin. Remains on hold given hypoglycemia yesterday. Fasting sugar this might was 76. Dr. Servin was paged today by Dr. Wayne regarding continuation of Lovenox and aspirin. We are waiting this returned call. Postoperative hemoglobin remained stable at 9.8. Chemistry panel normal. Will discuss further orders and plan of care with attending, Dr. Wayne 12/14/16 Continued postop back pain- Discussed with Dr. Harp and he is calling Dr Servin today to discuss concerns In the meantime Dr Harp did add extended release morphine 15 milligrams tablets every 4 hours as needed. Upon reevaluation this afternoon. Camryn does appear to be in much better pain control. Continue with fentanyl patch and Lidoderm patch Mag citrate was given this morning and her bowels are moving this afternoon. Type 2 diabetes mellitus with hypoglycemia-oral medications are on hold Continue with Lovenox and aspirin anticoagulation Routine laboratory studies remained stable. Will discuss orders and further plans with attending, Dr. Ruffin 12/15/[address] ordered by Dr. Harp reveals post-operative fluid collection in the subcutaneous fat, thought to be seroma. No evidence for infectious process at this point. Resume therapy. Appears to be in better pain control this morning. Continue with fentanyl patch and lidoderm patch and PRN morphine and percocet per Dr. Harp. Oral hypoglycemic medicines are currently on hold due to previous hypogylcemia. Resume metformin as glucose is trending high with FBS 151 this morning. Will continue to hold glyburide. Routine laboratory studies remain stable 12/17/16 16:12 *S/P Lumbar Lami- Dr. Servin CT is reviewed- possible seroma. She is afebrile. Recheck labs in AM, continue to monitor for any infection concerns. Continue current pain medication. Add low dose Gabapentin BID- may be able to up-titrate if improvement in pain. Continue to work with pt. She wants to return home, but admits that she needs quite a lot of help to get up. *Anxiety- Buspar. *DM2- Resume metformin and monitor. Continue to hold Glyburide. *HTN- BP is well controlled. Not currently on medications. *Anemia- Repeat CBC in AM. Assess Iron panel. 12/19/16 17:38 S/P Lumbar laminectomy per Dr. Servin CT lumbar spine - possible seroma. 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 She remains afebrile. We'll repeat CBC tomorrow morning. Dr. Harp spoke with Dr. Servin. Medrol Dosepak was started. Pain medicines were also adjusted. HS Gabapentin has already been increased. Diabetes with hyperglycemia Blood sugars have been more elevated since starting steroids. Continue metformin; glyburide was restarted today. May need to add sliding scale insulin. Anemia H&H 9.3, 32.2 Iron panel pending 12/21 S/P Lumbar laminectomy per Dr. Servin Pain control continues to be a challenge. This is being managed by Dr. Harp. Continue with morphine 15 milligrams every 4 hours plus gabapentin 200 milligrams 3 times a day. Patient was started on steroids to help with inflammation. She will continue on a tapered dose. His is likely the cause of some intermittent hyperglycemia. Continue with metformin twice a day, glyburide was also added along with sliding scale insulin. Monitor for evidence of hypoglycemia. Anxiety- Continue supportive care. Steroids may cause patinet to feel more anxious. Anemia- hemoglobin stable at 9.3. Iron 27, TIBC 362 12/23/16 09:28 S/P Lumbar laminectomy per Dr. Servin Concern about underlying infection - of SIRS criteria she has tachycardia and tachypnea. With qSOFA, she has 1/3 with tachypnea. She is also chilling and nurses report brown-colored drainage from incision. Will start sepsis workup - CBC, CMP, lactate, procalcitonin, BC x2, UA. Continue pain mgt and steroids. DM2 Hyperglycemia - intermittednt and she's actually had some low readings. Her oral intake has been poor. Hold glyburide and continue SSI along with Metformin. Iron-deficiency anemia Start iron + vitamin C.
[2016-12-23] MEDS: GABAPENTIN 100 MG CAPSULE PO SCH ×2 (09:27→15:59)
[2016-12-23] MEDS: ENOXAPARIN 40 MG/0.4 ML INJECTION SQ SCH (09:27)
[2016-12-23] MEDS: FERROUS SULFATE 324 MG TABLET PO SCH (09:28)
[2016-12-23] MEDS: ASCORBIC ACID 500 MG TABLET PO SCH (09:28)
[2016-12-23] MEDS: METFORMIN 500 MG TABLET PO SCH ×2 (09:28→18:20)
[2016-12-23] MEDS: DOCUSATE SODIUM 100 MG CAPSULE PO SCH ×2 (09:29→22:01)
[2016-12-23] MEDS: OXYBUTYNIN IR 5 MG TABLET PO SCH ×2 (09:29→22:06)
[2016-12-23] MEDS: ASPIRIN *EC* 81 MG TABLET PO SCH (09:29)
[2016-12-23] MEDS: LIDOCAINE 5% PATCH TOP SCH (09:29)
[2016-12-23] MEDS: BUSPIRONE 15 MG TABLET PO SCH ×2 (09:29→22:06)
[2016-12-23] MEDS: DULOXETINE 30 MG CAPSULE PO SCH (09:29)
[2016-12-23] MEDS ORDERED: ASCORBIC ACID 500 MG TABLET PO SCH (09:30)
[2016-12-23] MEDS: POLYETHYL GLYCOL 3350 17gm PACKET PO SCH ×2 (09:35→22:01)
[2016-12-23] MEDS: GLYBURIDE 5 MG TABLET PO SCH (10:55)
[2016-12-23] MEDS ORDERED: FERROUS SULFATE 324 MG TABLET PO SCH (12:00)
[2016-12-23] MEDS ORDERED: SALINE FLUSH 10ml SYRINGE IVF PRN (13:58)
[2016-12-23] MEDS: ACETAMINOPHEN 325 MG TABLET PO PRN (14:15)
[2016-12-23] MEDS: APAP PO PRN ×2 (14:15→23:54)
[2016-12-23] MEDS: OXYCODONE PO PRN ×2 (14:15→23:54)
[2016-12-23] MEDS: NS 1,000 ML IV SCH (14:47)
[2016-12-23] MEDS ORDERED: MethylPREDNISolone 4 MG TABLET PO SCH (16:00)
[2016-12-23] MEDS: PIPERACILLIN/TAZOBACTAM 3.375 GM in NS 100 ML IV SCH ×2 (18:27→23:42)
[2016-12-23] MEDS: SIMVASTATIN 20 MG TABLET PO SCH (22:06)
[2016-12-23] MEDS: LIDOCAINE PATCH REMOVAL TOP SCH (22:08)
[2016-12-24] MEDS: OXYCODONE PO PRN (04:19)
[2016-12-24] MEDS: APAP PO PRN (04:19)
[2016-12-24] MEDS: PIPERACILLIN/TAZOBACTAM 3.375 GM in NS 100 ML IV SCH (04:50)
[2016-12-24] MEDS: INSULIN ASPART 100unit/ml INJECTION SQ PRN (05:56)
[2016-12-24] MEDS: OMEPRAZOLE 20 MG CAPSULE PO SCH (05:56)
[2016-12-24] MEDS: NS 1,000 ML IV SCH (05:57)
[2016-12-24] MEDS ORDERED: LR 1,000 ML IV SCH (08:00)
[2016-12-24] MEDS: FERROUS SULFATE 324 MG TABLET PO SCH (08:51)
[2016-12-24] MEDS: ASPIRIN *EC* 81 MG TABLET PO SCH (08:53)
[2016-12-24] MEDS: BUSPIRONE 15 MG TABLET PO SCH (08:53)
[2016-12-24] MEDS: ASCORBIC ACID 500 MG TABLET PO SCH (08:53)
[2016-12-24] MEDS: OXYBUTYNIN IR 5 MG TABLET PO SCH (08:53)
[2016-12-24] MEDS: DOCUSATE SODIUM 100 MG CAPSULE PO SCH ×2 (08:53→09:11)
[2016-12-24] MEDS: DULOXETINE 30 MG CAPSULE PO SCH (08:53)
[2016-12-24] MEDS: LIDOCAINE 5% PATCH TOP SCH (08:54)
[2016-12-24] MEDS: ACETAMINOPHEN 325 MG TABLET PO PRN (08:54)
[2016-12-24] MEDS: POLYETHYL GLYCOL 3350 17gm PACKET PO SCH (08:54)
[2016-12-24] MEDS: ENOXAPARIN 40 MG/0.4 ML INJECTION SQ SCH (08:54)
--- NOTE | 2016-12-24 08:57 | Discharge Instructions ---
Discharge Plan - Med Rec/Dispo Referrals/Follow Up: RUI SHIRLEY DO [Family Provider] - Prescriptions: New Ferrous Sulfate [Feosol] 324 mg PO WB tablet Gabapentin [Neurontin] 200 mg PO TID capsule Hydrocortisone Sod Succinate [Solu-CORTEF] 50 mg IVP Q8HR vial Insulin Aspart [NovoLOG] 0 unit SQ SS PRN vial PRN Reason: Hyperglycemia Glucose Oral Gel 40% [Glutose 15] 37.5 gm PO PRN PRN tube PRN Reason: Hypoglycemia Continue Buspirone [Buspar] 15 mg PO BID Metformin [Glucophage] 500 mg PO BIDWM Lisinopril/Hctz 1012.5 [Prinzide 1012.5] 1 tab PO DAILY Docusate Sodium [Colace] 1 cap PO BID Oxycodone/APAP 10325 [Percocet 10/325] 1 tab PO Q4H PRN PRN Reason: Pain Simvastatin [Zocor] 20 mg PO DAILY Omeprazole [Prilosec] 1 cap PO ACB GlyBURIDE [Micronase] 10 mg PO BID Aspirin *EC* [Ecotrin] 1 tab PO DAILY Cyclobenzaprine [Flexeril] 5 mg PO TID PRN PRN Reason: Spasms Oxybutynin Ir [Ditropan] 5 mg PO BID - Disposition 02 Acute Care Hosp, Other
[2016-12-24] MEDS ORDERED: HYDROCORTISONE SOD SUCC 100mg/2ml INJECTION IVP SCH (09:00)
--- NOTE | 2016-12-24 10:27 | Discharge Instructions ---
Discharge Plan - Med Rec/Dispo Referrals/Follow Up: RUI SHIRLEY DO [Family Provider] - Fernie Servin [Physician] - Additional Instructions: Antibiotics will be determined by [facility] admitting team. Started Vancomycin and Zosyn on 12/23/16. Back wound cultures obtained on 12/24/16. At time of d/c, 1/2 BC was growing E. coli. Prescriptions: New Ferrous Sulfate [Feosol] 324 mg PO WB tablet Gabapentin [Neurontin] 200 mg PO TID capsule Hydrocortisone Sod Succinate [Solu-CORTEF] 50 mg IVP Q8HR vial Insulin Aspart [NovoLOG] 0 unit SQ SS PRN vial PRN Reason: Hyperglycemia Glucose Oral Gel 40% [Glutose 15] 37.5 gm PO PRN PRN tube PRN Reason: Hypoglycemia Continue Buspirone [Buspar] 15 mg PO BID Metformin [Glucophage] 500 mg PO BIDWM Lisinopril/Hctz 10/12.5 [Prinzide 10/12.5] 1 tab PO DAILY Docusate Sodium [Colace] 1 cap PO BID Oxycodone/APAP 10/325 [Percocet 10/325] 1 tab PO Q4H PRN PRN Reason: Pain Simvastatin [Zocor] 20 mg PO DAILY Omeprazole [Prilosec] 1 cap PO ACB GlyBURIDE [Micronase] 10 mg PO BID Aspirin *EC* [Ecotrin] 1 tab PO DAILY Cyclobenzaprine [Flexeril] 5 mg PO TID PRN PRN Reason: Spasms Oxybutynin Ir [Ditropan] 5 mg PO BID - Disposition 02 To [facility] Acute Care
--- NOTE | 2016-12-24 10:32 | Discharge Summary ---
Discharge Information Date of admission: 12/10/16 14:31 Attending Physician: Maynor Harp MD Primary care physician: RUI SHIRLEY Consults: 12/10/16 15:51 Physician Consult [CONS] Routine Consulting Provider: Sridhar Simmons Reason For Exam: Medical management Ordering Provider has Notified Court Crier: No 12/21/16 11:34 [facility] Consult [CONS] Routine Reason for consultation: skin breakdown sacrum 12/24/16 Pharmacy Consult [CONS] Routine Pharmacy Consult: Vancomycin Comment: sepsis of unclear source, recent lumbar fusion - Discharge Diagnosis (1) Septic shock Status: Acute (2) S/P lumbar spinal fusion Status: Acute (3) Debility Status: Acute (4) Diabetes mellitus Qualifiers: Diabetes mellitus type: type 2 Diabetes mellitus complication status: without complication Diabetes mellitus adzing and boring machine helper insulin use: without adzing and boring machine helper use Qualified Code(s): E11.9 - Type 2 diabetes mellitus without complications Status: Chronic - Laboratory Labs: 12/24/16 03:13 12/24/16 03:13 Laboratory Tests 12/23/16 12/23/16 12/23/16 09:52 14:06 21:22 Plasma Lactate 1.8 1.7 5.6 H* 12/24/16 12/24/16 03:13 07:46 Plasma Lactate 3.8 H 2.6 H 12/23/16 12/24/16 09:52 03:13 Procalcitonin 0.06 15.55 H* 12/24/16 03:13 Total Bilirubin 1.00 AST 37 H ALT 42 Alkaline Phosphatase 82 D B-Natriuretic Peptide 9750 H - Microbiology Microbiology 12/23/16 09:48 Peripheral/Iv Start Blood Culture - Preliminary No Growth After 1 Day 12/23/16 09:52 Peripheral/Iv Start Gram Stain - Final 12/23/16 09:52 Peripheral/Iv Start Blood Culture - Preliminary Escherichia coli - Radiology Radiology: Date of Exam: 12/15/16 Type of Exam(s): CT lumbar spine wo con FINDINGS: Comparisons are unavailable. Under my numbering scheme there is posterior spinal fusion hardware extending from L3 through L5 with bilateral pedicle screws and rods. There is a disk prosthesis at the L3-L4 disk space. Grade 1 degenerative anterolisthesis of L4 on L5. Mild scoliotic curvature. No evidence of hardware loosening or failure. No acute fracture identified. There is a prominent fluid collection in the posterior soft tissues with areas of calcification likely related to the recent surgery. This measures 14.37 m craniocaudally and 4.9 cm anteroposteriorly on sagittal image #30. The paraspinal soft tissues are otherwise unremarkable. Fat-containing right ventral hernia noted incidentally. Old healed left 11th and 12th rib fractures. Segmental analysis: T11-T12: Normal T12-L1: Minimal disk osteophyte complex without central canal or neural foraminal stenosis. L1-L2: Small left foraminal disk bulge with degenerative facet disease contributing to mild left neural foraminal stenosis. No central canal or right foraminal stenosis. L2-L3: No focal disk herniation or gross central canal stenosis. Mild degenerative facet change without central canal stenosis. L3-L4: Metallic artifact. Posterior decompression. Calcified central disk protrusion slightly asymmetric towards the left. There is severe left neural foraminal stenosis which is primarily bony. Mild bony right neural foraminal narrowing. L4-L5: Posterior decompression. Listhesis contributes to mild right neural foraminal stenosis. Prominent osteophytes causing severe left neural foraminal stenosis. L5-S1: Posterior decompression. No focal central protrusion. No significant neural foraminal stenosis. Impression: 1. Spinal surgery as above with a postoperative fluid collection in the subcutaneous fat. This is probably a seroma. Recommend correlation with physical exam and clinical parameters to evaluate for any evidence of developing abscess. 2. Severe bony left foraminal stenosis at L3-L4 and L4-L5. Date of Exam: 12/19/16 Type of Exam(s): XR hip LT Findings: There is limited visualization of the pelvis on the AP view due to technical factors. No acute fracture seen on the frog-leg lateral view. Moderate joint space narrowing. Impression: Somewhat limited exam. No acute displaced fracture. Date of Exam: 12/23/16 Chest x-ray: no infiltrates noted. Report pending. Date of Exam: 12/24/16 CT abdomen and pelvis without contrast and CT lumbar spine: Abdomen: No acute inflammatory/infectious process identified in the abdomen or pelvis. No evidence of bowel obstruction. Lumbar spine: 15.5 x 8.6 x 6.8 cm fluid collection of lower back, most likely representing postoperative seroma. History of Present Illness HPI: Patient is a pleasant 71-year-old female with a long-standing history of lumbar stenosis, lumbar radiculopathy and lumbar spondylolisthesis. She underwent an L3 -L5 posterior lumbar fusion under the care of Dr. Servin on Sunday at [facility]. She has had significant pain and debility. She has tolerated this procedure well and was accepted to the inpatient rehabilitation continue to at [facility] for ongoing recovery, therapy and strengthening on 12/10/16. The hospitalist service was consulted for initial medical management of DM, HTN , asthma. Camryn reports feeling quite fatigued and having a moderate amount of discomfort from her transfer via car this afternoon. She states that once lying down she is more comfortable. Requesting pain medication at time of examination. Any other symptoms or concerns including chest pain, shortness of breath or GI concerns. Her posterior lumbar incision obtains a dressing that is dry and intact without evidence of erythema or drainage. Per Dr. Harp: Prior to her surgery she was unable to stand for more than 5 minutes. She reported lower extremity weakness and severe low back pain. She had obtained a scooter and was using that around the house. She and her live with their son who has chronic kidney disease at [place]. She is unable to return home at this time due to severe debility with muscle weakness and low back pain following the surgery. She has a history of multiple medical problems including hypertension and diabetes mellitus. She is on oral agents only. She states that she does check her blood sugars at home periodically but not on a regular basis. I asked her what her average fasting blood sugar was and she does not recall this. It is not clear what her A1c has been. She also has a history of hypertension. It is not clear if she has been able to keep this under control or not. There is a report of some redness in the presacral area. There is no open ulcer in this area and it is blanchable. The patient requires intensive individualized rehabilitation on the acute rehabilitation unit. She will require occupational therapy and physical therapy and is able to tolerate 3 hours daily. She clearly is unable to return home at the present time and seems to be an excellent candidate for acute rehabilitation. She tells me that she is very motivated to get back home. Barriers to progress will include pain and muscle weakness as well as her obesity. Objective Vital signs: Temperature 99.9 F 12/24/16 07:32 Pulse Rate 102 H 12/24/16 07:43 Respiratory Rate 14 12/24/16 07:32 Blood Pressure 117/67 12/24/16 07:43 Pulse Oximetry 98 12/24/16 07:43 Oxygen Delivery Method Nasal Cannula Oxygen Flow Rate 1.5 Rhythm: Sinus Tachycardia Cardiac Ectopy: Occasional PVC's, PAC's Height: 1.83 m Weight: 104.9 kg Body Mass Index: 31.4 - Constitutional Present: moderate distress, obese Comments: appears ill - Routine HEENT Exam Eye: Absent: conjunctival icterus ENT: Present: mucous membranes dry - Routine Respiratory Exam Present: CTA bilaterally - Routine Cardiovascular Exam Present: S1, S2, irregular rhythm - Routine Abdominal Exam Present: soft, normoactive bowel sounds, non distended, non tender - Routine Extremities Exam Present: no edema, pulses intact - Routine Back/Spine/Pelvis Exam Back image: 1 - brown-purulent drainage freely flows from incision site. Dressing was saturated. Cultures obtained. - Routine Musculoskeletal Exam Musculoskeletal: Present: no clubbing or cyanosis - Routine Skin Exam Present: dry, warm, wounds (back) Comments: still with rigors/chills - Routine Neurological Exam Present: alert, altered mental status (acute delirium. Patient is pulling at lines, and picking at the air.) She is alert and oriented to person only. She recognizes her and her son today. She answers some questions appropriately. - Routine Psychiatric Exam Present: visual hallucinations. Absent: normal affect, normal thought process Hospital Course This is a general summary of the patient's hospital course. For more details refer to the complete medical record. Hospital course: Camryn was admitted to [facility] IRU on 12/10/16 to address her pain and debility following an L3-L5 lumbar fusion by Dr. Servin on 12/06/16. The medical team was consulted to help manage her diabetes (for which metformin and glyburide were continued and blood sugars monitored), hypertension (Prinzide), constipation (oral bowel motivation). Lovenox was ordered for PTE prophylaxis. She had mild anemia on admission with a hemoglobin of 9.3, and her iron level was noted to be low at 27, TIBC 362. She was started on ferrous sulfate plus vitamin C. On admission, her dressing was noted to be clean, dry and intact, though she had severe pain. Her pain actually radiated to both hips, but much more significantly to her left hip. Her pain continued to worsen, and additional narcotic pain medications, including fentanyl patch, Lidoderm patch, and eventually morphine were added. Gabapentin dose was also increased. Dr. Harp discussed the case with Dr. Servin on 12/14/16, who recommended starting a Medrol Dosepak. A lumbar CT scan done on 12/15/16, showed a postoperative fluid collection thought to be seroma, without evidence for infection. She had intermittent drainage from her back, per nursing notes. Dressing was changed as needed. When she was assessed on 12/23/16, the back dressing was clean, dry and intact. She continued to be limited in ability to participate in PT and OT because of pain, but on 12/22/16, she had a fairly good therapy day. When the patient was assessed on 12/23/16, she was exhibiting rigors and chills. Septic workup was initiated, initially negative. Blood pressure declined and IV fluids were started. Vancomycin and Zosyn were empirically started on 12/23/16. Source at that point remained uncertain, with negative UA, chest x-ray, but certainly entertained the possibility of postoperative infection. With additional frequent assessments, however, she was found to be in septic shock with a peak lactate of 5.6. qSOFA score initially was 1/3, later in the day it progressed to 2/3. Initial pro-calcitonin was negative, but the following morning, it had increased to 15. White blood cell count also increased to 19. Since she was on oral steroids, Dr. Arias had ordered IV Solu-Cortef in the event of adrenal suppression contributing to hypertension. By 12/24/16, her vital signs have improved, and she was normotensive with mild sinus tachycardia. She remained confused, alert and oriented to self only. One of 2 blood cultures (drawn on 12/23/16) grew positive with Escherichia coli. Her back incision, drainage, increased significantly, with brown purulent free-flowing drainage. A culture was sent. CT scan of abdomen and pelvis as well as the lumbar spine were obtained, showing a large fluid collection that measured 15 x 5 x 8.6 x 6.8 cm, most likely representing seroma. However, given her presentation, this was suspected to be the source for her infection. Dr. Arias had contacted Dr. Bower, on-call for Dr. Servin, who agreed that the patient would require transfer for neurosurgical evaluation. She then contacted the hospitalist department at via [facility], and Dr. Tammi Vargas accepted the patient to the ICU. Dr. Harp and nursing staff were notified. We discussed options with family, and they agreed with transfer. She received one last dose of vancomycin that was started upon transfer. Time spent with patient: greater than 35 minutes DVT Prophylaxis: Xarelto Discharge Plan - Med Rec/Dispo Referrals/Follow Up: Fernie Servin [Physician] - RUI SHIRLEY DO [Family Provider] - Additional Instructions: Antibiotics will be determined by [facility] admitting team. Started Vancomycin and Zosyn on 12/23/16. Back wound cultures obtained on 12/24/16. At time of d/c, 1/2 BC was growing E. coli. Prescriptions: New Ferrous Sulfate [Feosol] 324 mg PO WB tablet Gabapentin [Neurontin] 200 mg PO TID capsule Hydrocortisone Sod Succinate [Solu-CORTEF] 50 mg IVP Q8HR vial Insulin Aspart [NovoLOG] 0 unit SQ SS PRN vial PRN Reason: Hyperglycemia Glucose Oral Gel 40% [Glutose 15] 37.5 gm PO PRN PRN tube PRN Reason: Hypoglycemia Continue Buspirone [Buspar] 15 mg PO BID Metformin [Glucophage] 500 mg PO BIDWM Lisinopril/Hctz 1012.5 [Prinzide 10/12.5] 1 tab PO DAILY Docusate Sodium [Colace] 1 cap PO BID Oxycodone/APAP 10/325 [Percocet 10/325] 1 tab PO Q4H PRN PRN Reason: Pain Simvastatin [Zocor] 20 mg PO DAILY Omeprazole [Prilosec] 1 cap PO ACB GlyBURIDE [Micronase] 10 mg PO BID Aspirin *EC* [Ecotrin] 1 tab PO DAILY Cyclobenzaprine [Flexeril] 5 mg PO TID PRN PRN Reason: Spasms Oxybutynin Ir [Ditropan] 5 mg PO BID - Disposition 02 To [facility] Acute Care
--- NOTE | 2016-12-24 10:34 | CT Scan Report ---
Indication: sepsis, E. Coli bacteremia, unknown source, UA neg PROCEDURE: CT abdomen pelvis wo con: Encounter: Initial Comparison: None Technique: Axial CT images were performed through the abdomen and pelvis without intravenous contrast. Coronal and sagittal two-dimensional reformats. Automated Exposure Control and Iterative Reconstruction dose reducing techniques were utilized. Findings: Mild atelectasis in the lung bases. No focal contour deforming liver mass. Respiratory motion artifact limits the quality of the exam. The spleen, pancreas and adrenal glands are within normal limits. Kidneys are grossly normal. No abdominal or pelvic lymphadenopathy. Bladder may be slightly prolapsed through the pelvic floor. No evidence of a bowel obstruction. Lumbar spine findings are described in a separate CT lumbar spine report. There is a large posterior paraspinal fluid collection. Fat-containing right-sided ventral hernia noted. Impression: No evidence of an abscess within the abdomen or pelvis. No clear acute disease process seen. There is a preliminary report by [facility]. .
--- NOTE | 2016-12-24 10:38 | CT Scan Report ---
Indication: sepsis, s/p posterior L3-5 fusion PROCEDURE: CT lumbar spine wo con: Encounter: Initial Comparison: CT lumbar spine dated December 15, 2016 Findings: Postoperative changes again noted in the lumbar spine with L3-L5 spinal fusion. No acute fracture. Posterior decompressions noted at L3-L5. There is gas in the posterior paraspinal soft tissues at the L3 level with soft tissue induration or fluid in the posterior epidural space. Degenerative changes are described in detail on the very recent comparison report. There is again a large subcutaneous peripherally calcified collection in the paraspinal soft tissues. This measures 15 cm in craniocaudal length and 5.7 cm anteroposterior dimension. The paraspinal soft tissues are otherwise unremarkable. Impression: 1. Possible posterior epidural abscess at the L3 level. Contrast enhanced MRI may be helpful for further evaluation. Spinal surgical evaluation is recommended. 2. Large posterior paraspinal fluid collection could represent a seroma or abscess. Diagnostic aspiration could be performed for further evaluation as clinically indicated. No acute fracture. There is a preliminary report by [employer]. .
--- NOTE | 2016-12-24 10:39 | Pharmacy Consult-Antibiotics ---
Pharmacy Consult-Vancomycin - Laboratory Information WBC 19.5 T/MM3 (4.5-11.0) H D 12/24/16 03:13 BUN 16.0 MG/DL (7-17) 12/24/16 03:13 Creatinine 0.9 MG/DL (0.7-1.2) D 12/24/16 03:13 Procalcitonin 15.55 NG/ML H* 12/24/16 03:13 - Consult Information 71 yo Female with 12/23/16 symptoms of fever 102 F and tachycardic started on zosyn and vancomycin per pharmacy protocol for empiric coverage of sepsis of unknown etiology. Vancomycin 1,500 mg IV x 1 dose was given 12/23 at 2020. pharmacy protocol ordered 12/24/16 @~0800. goal Vanco trough of 15 to 20 mcg/ml. Will give another dose of Vancomycin 1,500 mg IV now. No further orders entered at this time as patient is pending transfer to another hospital facility. Thank you for the consult, Joanne Ribeiro [facility]
--- NOTE | 2016-12-24 10:42 | XRay Report ---
Indication: sepsis, hypoxia, volume status PROCEDURE: XR chest 1V: Encounter: Initial Comparison: December 23, 2016 Findings: Calcified granuloma in the left lower lobe. Possible trace left effusion. Right lung is grossly clear. No pneumothorax. Cardiac silhouette remains enlarged with widening of the mediastinal contours. Pulmonary vascularity appears slightly more congested. Impression: 1. Developing mild pulmonary edema. 2. Widened mediastinal contours could represent aortic aneurysm or a tortuous thoracic aorta. Recommend comparison with any available old exams if possible. If comparisons are unavailable contrast enhanced CT of the chest may be helpful for further evaluation. .
--- NOTE | 2016-12-24 10:43 | XRay Report ---
Indication: fever, and hypoxia PROCEDURE: XR chest 1V: Encounter: Initial Comparison: None Findings: Lungs are grossly clear. No pneumothorax or definite effusion. Cardiac silhouette is mildly enlarged. Mediastinal contours appear widened with a convex left mediastinal border. Pulmonary vascularity appears normal. Mild scoliosis. Degenerative change in the shoulders. Impression: 1. No focal pneumonia or overt congestive failure. 2. Enlarged cardiac silhouette could be due to cardiomegaly or pericardial effusion. 3. Widening of the mediastinal borders could be due to aortic aneurysm or tortuosity. .
[2016-12-24 11:55] VITALS: BP 90/55; PULSE 107; RESP 16; TEMP 99.4; O2SAT 92
--- NOTE | 2016-12-25 13:27 | Discharge Summary ---
Discharge Information Date of admission: 12/10/16 14:31 Anticipated date of discharge: 12/23/16 Attending Physician: Maynor Harp MD Primary care physician: RUI SHIRLEY Consults: 12/10/16 15:51 Physician Consult [CONS] Routine Consulting Provider: Sridhar Simmons Reason For Exam: Medical management Ordering Provider has Notified Miter Operator: No 12/21/16 11:34 W[facility] Clinic Consult [CONS] Routine Reason for consultation: skin breakdown sacrum 12/24/16 Pharmacy Consult [CONS] Routine Pharmacy Consult: Vancomycin Comment: sepsis of unclear source, recent lumbar fusion - Discharge Diagnosis Discharge Diagnosis: 1. L3-5 posterior interbody fusion 2. Intractable pain in left hip and leg 3. Diabetes mellitus type II, not controlled, not on retirement insulin use 4. Benign essential hypertension 5. Acute septic shock (developing during IRU stay) - Laboratory Labs: 12/24/16 03:13 12/24/16 03:13 - Microbiology Microbiology 12/23/16 09:48 Peripheral/Iv Start Blood Culture - Preliminary No Growth After 2 Days 12/24/16 10:58 Drainage, Surgical Site Gram Stain - Final 12/24/16 10:58 Drainage, Surgical Site Body Fluid Culture - Preliminary Gram Negative Medhat Proteus species 12/23/16 09:52 Peripheral/Iv Start Gram Stain - Final 12/23/16 09:52 Peripheral/Iv Start Blood Culture - Final Escherichia coli History of Present Illness HPI: Patient is a pleasant 71-year-old female with a long-standing history of lumbar stenosis, lumbar radiculopathy and lumbar spondylolisthesis. She underwent an L3 -L5 posterior lumbar fusion under the care of Dr. Servin on Sunday at [facility]. She has had significant pain and debility. She has tolerated this procedure well and was accepted to the inpatient rehabilitation continue to at [facility] for ongoing recovery, therapy and strengthening on 12/10/16. The hospitalist service was consulted for initial medical management of DM, HTN , asthma. Camryn reports feeling quite fatigued and having a moderate amount of discomfort from her transfer via car this afternoon. She states that once lying down she is more comfortable. Requesting pain medication at time of examination. Any other symptoms or concerns including chest pain, shortness of breath or GI concerns. Her posterior lumbar incision obtains a dressing that is dry and intact without evidence of erythema or drainage. Per Dr. Harp: Prior to her surgery she was unable to stand for more than 5 minutes. She reported lower extremity weakness and severe low back pain. She had obtained a scooter and was using that around the house. She and her live with their son who has chronic kidney disease at [place]. She is unable to return home at this time due to severe debility with muscle weakness and low back pain following the surgery. She has a history of multiple medical problems including hypertension and diabetes mellitus. She is on oral agents only. She states that she does check her blood sugars at home periodically but not on a regular basis. I asked her what her average fasting blood sugar was and she does not recall this. It is not clear what her A1c has been. She also has a history of hypertension. It is not clear if she has been able to keep this under control or not. There is a report of some redness in the presacral area. There is no open ulcer in this area and it is blanchable. The patient requires intensive individualized rehabilitation on the acute rehabilitation unit. She will require occupational therapy and physical therapy and is able to tolerate 3 hours daily. She clearly is unable to return home at the present time and seems to be an excellent candidate for acute rehabilitation. She tells me that she is very motivated to get back home. Barriers to progress will include pain and muscle weakness as well as her obesity. Hospital Course This is a general summary of the patient's hospital course. For more details refer to the complete medical record. During the time of her stay on the inpatient rehabilitation unit, the patient received physical therapy 90 minutes daily for 5 days weekly. She received occupational therapy 90 minutes daily for 5 days weekly. She required medical management of her intractable pain which primarily involved the left leg and hip area. In addition her blood sugars were monitored. These are quite variable due to her variable intake which in turn is due to the discomfort in the left leg. Progress was extremely slow regarding her therapy due to the pain. As noted above, we did discuss the case with Dr. Fernie Servin. Adjustments were made in her pain medications etc. CT scan was done with results as noted. Please see discussion below regarding further hospital course. Hospital course: Camryn was admitted to [facility] IRU on 12/10/16 to address her pain and debility following an L3-L5 lumbar fusion by Dr. Servin on 12/06/16. The medical team was consulted to help manage her diabetes (for which metformin and glyburide were continued and blood sugars monitored), hypertension (Prinzide), constipation (oral bowel motivation). Lovenox was ordered for PTE prophylaxis. She had mild anemia on admission with a hemoglobin of 9.3, and her iron level was noted to be low at 27, TIBC 362. She was started on ferrous sulfate plus vitamin C. On admission, her dressing was noted to be clean, dry and intact, though she had severe pain. Her pain actually radiated to both hips, but much more significantly to her left hip. Her pain continued to worsen, and additional narcotic pain medications, including fentanyl patch, Lidoderm patch, and eventually morphine were added. Gabapentin dose was also increased. Dr. Harp discussed the case with Dr. Servin on 12/14/16, who recommended starting a Medrol Dosepak. A lumbar CT scan done on 12/15/16, showed a postoperative fluid collection thought to be seroma, without evidence for infection. She had intermittent drainage from her back, per nursing notes. Dressing was changed as needed. When she was assessed on 12/23/16, the back dressing was clean, dry and intact. She continued to be limited in ability to participate in PT and OT because of pain, but on 12/22/16, she had a fairly good therapy day. When the patient was assessed on 12/23/16, she was exhibiting rigors and chills. Septic workup was initiated, initially negative. Blood pressure declined and IV fluids were started. Vancomycin and Zosyn were empirically started on 12/23/16. Source at that point remained uncertain, with negative UA, chest x-ray, but certainly entertained the possibility of postoperative infection. With additional frequent assessments, however, she was found to be in septic shock with a peak lactate of 5.6. qSOFA score initially was 1/3, later in the day it progressed to 2/3. Initial pro-calcitonin was negative, but the following morning, it had increased to 15. White blood cell count also increased to 19. Since she was on oral steroids, Dr. Arias had ordered IV Solu-Cortef in the event of adrenal suppression contributing to hypertension. By 12/24/16, her vital signs have improved, and she was normotensive with mild sinus tachycardia. She remained confused, alert and oriented to self only. One of 2 blood cultures (drawn on 12/23/16) grew positive with Escherichia coli. Her back incision, drainage, increased significantly, with brown purulent free-flowing drainage. A culture was sent. CT scan of abdomen and pelvis as well as the lumbar spine were obtained, showing a large fluid collection that measured 15 x 5 x 8.6 x 6.8 cm, most likely representing seroma. However, given her presentation, this was suspected to be the source for her infection. Dr. Arias had contacted Dr. Bower, on-call for Dr. Servin, who agreed that the patient would require transfer for neurosurgical evaluation. She then contacted the hospitalist department at via [facility], and Dr. Tammi Vargas accepted the patient to the ICU. Dr. Harp and nursing staff were notified. We discussed options with family, and they agreed with transfer. She received one last dose of vancomycin that was started upon transfer. Discharge Plan - Med Rec/Dispo Referrals/Follow Up: Fernie Servin [Physician] - RUI SHIRLEY DO [Family Provider] - Additional Instructions: Antibiotics will be determined by [facility] admitting team. Started Vancomycin and Zosyn on 12/23/16. Back wound cultures obtained on 12/24/16. At time of d/c, 1/2 BC was growing E. coli. Prescriptions: New Ferrous Sulfate [Feosol] 324 mg PO WB tablet Gabapentin [Neurontin] 200 mg PO TID capsule Hydrocortisone Sod Succinate [Solu-CORTEF] 50 mg IVP Q8HR vial Insulin Aspart [NovoLOG] 0 unit SQ SS PRN vial PRN Reason: Hyperglycemia Glucose Oral Gel 40% [Glutose 15] 37.5 gm PO PRN PRN tube PRN Reason: Hypoglycemia Continue Buspirone [Buspar] 15 mg PO BID Metformin [Glucophage] 500 mg PO BIDWM Lisinopril/Hctz 1012.5 [Prinzide 1012.5] 1 tab PO DAILY Docusate Sodium [Colace] 1 cap PO BID Oxycodone/APAP 10/325 [Percocet 10/325] 1 tab PO Q4H PRN PRN Reason: Pain Simvastatin [Zocor] 20 mg PO DAILY Omeprazole [Prilosec] 1 cap PO ACB GlyBURIDE [Micronase] 10 mg PO BID Aspirin *EC* [Ecotrin] 1 tab PO DAILY Cyclobenzaprine [Flexeril] 5 mg PO TID PRN PRN Reason: Spasms Oxybutynin Ir [Ditropan] 5 mg PO BID - Disposition 02 To [facility] Acute Care
== END 2016-12-24 11:30 | disposition short-term general hospital (02) | DRG 93 ==
PROVIDERS: ADMIT Internal Medicine; ATTEND Internal Medicine